=== PATIENT | male | born 1960 | race Caucasian/White ===

== ENCOUNTER 2016-11-18 03:50 | Observation (INO) | payer MEDICARE, OTHER ==
[2016-11-18] MEDS ORDERED: NITROGLYCERIN SL TABS 0.4 MG TAB SUBLINGUAL STA (04:19)
[2016-11-18] MEDS ORDERED: ASPIRIN 81 MG CHEW PO STA (04:19)
--- NOTE | 2016-11-18 04:21 | ED ---
Chest Pain HPI - General Chief Complaint: Chest Pain Stated Complaint: Chest Pain/SOB Time Seen by Provider: 11/18/16 04:03 Source: patient Mode of arrival: ambulatory Limitations: no limitations - History of Present Illness Initial Comments: Patient's 56-year-old man who states she has had previous IN and previous stenting. He noticed development of substernal chest pain as described below, during argument between 1-2 hours ago. On the chest pain persisted he decided be evaluated here. There was also some associated dyspnea. No other anginal symptoms. MD Complaint: chest pain Onset/Timin -: hour(s) Onset: other (During an argument) Pain Location: substernal Pain Radiation: LUE Severity: moderate Quality: other (Soreness) Consistency: constant Improves With: nothing Worsens With: nothing Anginal Symptoms: dyspnea Treatments Prior to Arrival: none - Related Data Home Medications Medication Instructions Recorded Confirmed Albuterol Sulfate [Proair Hfa] 1 - 2 puff INHALATION RT-Q4H PRN 11/18/16 Aspirin 325 mg PO DAILY 11/18/16 11/18/16 Atenolol [Tenormin] 100 mg PO DAILY 11/18/16 11/18/16 Atorvastatin Calcium [Lipitor] 20 mg PO HS 11/18/16 11/18/16 Budesonide/Formoterol Fumarate 2 puff INHALATION RT-BID 11/18/16 11/18/16 [Symbicort 160-4.5 Mcg Inhaler] Cetirizine HCl [Zyrtec] 10 mg PO DAILY 11/18/16 11/18/16 Cholecalciferol (Vitamin D3) 2,000 unit PO DAILY 11/18/16 11/18/16 [Vitamin D3] Dapagliflozin Propanediol [Farxiga] 10 mg PO DAILY 11/18/16 11/18/16 Fenofibrate,Micronized 134 mg PO DAILY 11/18/16 11/18/16 [Fenofibrate] Fluticasone Nasal Coffeen [Flonase 1 - 2 spray EA NOSTRIL DAILY PRN 11/18/1611/18 Nasal Coffeen] Isosorbide Mononitrate ER [Imdur] 30 mg PO DAILY 11/18/16 11/18/16 Omeprazole [PriLOSEC] 20 - 40 mg PO AC-BID PRN 11/18/16 11/18/16 Pioglitazone [Actos] 30 mg PO DAILY 11/18/16 11/18/16 Pregabalin [Lyrica] 75 mg PO TID 11/18/16 11/18/16 Previous Rx's Medication Instructions Recorded Nitroglycerin Sl Tabs [Nitrostat] 0.4 mg SUBLINGUAL Q5M PRN #25 tab 11/18/16 Allergies Allergy/AdvReac Type Severity Reaction Status Date / Time No Known Allergies Allergy Verified 11/18/16 08:47 Review of Systems ROS Statement: Those systems with pertinent positive or pertinent negative responses have been documented in the HPI. ROS Other: All systems not noted in ROS Statement are negative. Constitutional: Denies: fever, chills Respiratory: Reports: as per HPI, dyspnea. Denies: cough, wheezes, hemoptysis Cardiovascular: Reports: chest pain. Denies: palpitations, orthopnea, edema, syncope Gastrointestinal: Denies: abdominal pain, nausea, vomiting Musculoskeletal: Denies: back pain Skin: Denies: rash Neurological: Denies: headache, weakness, numbness EKG Findings - EKG Results: EKG: interpreted by RAINA MURRELL, sinus rhythm (Rate 80 bpm), normal axis, normal QRS, normal ST/T - IN, Pacemaker, Normal: Normal tracing: normal tracing Past Medical History Past Medical History: COPD, Diabetes Mellitus, Hyperlipidemia, Hypertension Additional Past Medical History / Comment(s): Neuropathy History of Any Multi-Drug Resistant Organisms: None Reported Past Surgical History: No Surgical Hx Reported Past Psychological History: No Psychological Hx Reported Smoking Status: Never smoker Past Alcohol Use History: Occasional Past Drug Use History: None Reported - Past Family History Father History Unknown: Yes Additional Family Medical History / Comment(s): Pt was raised in foster care. Mother Family Medical History: Diabetes Mellitus, Myocardial Infarction (IN) Additional Family Medical History / Comment(s): Mother of a IN at the age of 42 yrs. General Exam Limitations: no limitations General appearance: alert, in no apparent distress Head exam: Present: atraumatic, normocephalic Eye exam: Present: normal appearance. Absent: scleral icterus, conjunctival injection ENT exam: Present: normal oropharynx Neck exam: Present: normal inspection Respiratory exam: Present: normal lung sounds bilaterally. Absent: respiratory distress, wheezes, rales, rhonchi, stridor Cardiovascular Exam: Present: regular rate, normal rhythm, normal heart sounds. Absent: systolic murmur, diastolic murmur, rubs, gallop GI/Abdominal exam: Present: soft. Absent: distended, tenderness, guarding, rebound Extremities exam: Present: normal inspection, normal capillary refill. Absent: pedal edema, calf tenderness Back exam: Absent: CVA tenderness (R), CVA tenderness (L) Skin exam: Present: warm, dry, intact, normal color. Absent: rash Course Vital Signs 11/18/16 11/18/16 11/18/16 03:59 05:01 05:17 Temperature 97.2 F L Pulse Rate 85 87 88 Respiratory 18 18 18 Rate Blood Pressure 128/81 142/63 97/53 O2 Sat by Pulse 97 Oximetry 11/18/16 07:10 Temperature Pulse Rate 71 Respiratory 18 Rate Blood Pressure 99/62 O2 Sat by Pulse 97 Oximetry Disposition Clinical Impression: Chest pain Disposition: ADMITTED IP TO THIS HOSP Condition: Fair
[2016-11-18 04:39] LABS: Basophils % (A) 0 %; CH 31.5; CHCM 34.9; Eosinophils # (A) 0.1 k/uL (0-0.7); Eosinophils % (A) 1 %; HCT 44.4 % (39.0-53.0); HDW 2.76; HGB 15.3 gm/dL (13.0-17.5); Luc # (Auto) 0.15; Luc % (Auto) 2; Lymphocytes # (A) 0.9 k/uL (1.0-4.8); Lymphocytes % (A) 13 %; MCH 31.2 pg (25.0-35.0); MCHC 34.4 g/dL (31.0-37.0); MCV 90.7 fL (80.0-100.0); Mean Platelet Volume 6.5; Monocytes # (A) 0.5 k/uL (0-1.0); Monocytes % (A) 7 %; Neutrophils # (A) 5.7 k/uL (1.3-7.7); Neutrophils % (A) 77 %; RDW 14.6 % (11.5-15.5); WBC 7.4 k/uL (3.8-10.6); WBC (Perox) 6.99
[2016-11-18 04:54] LABS: Partial Thromboplastin Time 25.5 sec (22.0-30.0); Prothrombin Time 10.3 sec (9.0-12.0)
[2016-11-18 05:01] LABS: ALT 39 U/L (21-72); AST 23 U/L (17-59); Alkaline Phosphatase 71 U/L (38-126); Anion Gap 12 mmol/L; Blood Urea Nitrogen 18 mg/dL (9-20); Calcium 9.6 mg/dL (8.4-10.2); Carbon Dioxide 24 mmol/L (22-30); Chloride 103 mmol/L (98-107); Glucose 127 mg/dL (74-99); Non-African American GFR(MDRD) 57 (>60 ml/min/1.73 sqM); Sodium 139 mmol/L (137-145); Total Bilirubin 0.6 mg/dL (0.2-1.3); Total Protein 6.9 g/dL (6.3-8.2)
[2016-11-18 05:05] LABS: Creatine Kinase 60 U/L (55-170)
[2016-11-18 05:18] LABS: Creatine Kinase MB 0.8 ng/mL (0.0-2.4); Troponin I <0.012 ng/mL (0.000-0.034)
--- NOTE | 2016-11-18 05:36 | XR ---
EXAM: XR Chest, 1 View CLINICAL HISTORY: Reason: chest pain TECHNIQUE: Frontal view of the chest. COMPARISON: 07/22/16 chest radiography FINDINGS: Please see impression. IMPRESSION: Atelectasis versus infiltrate versus small perfusion at the periphery of the left lung base with resultant blunting of the costophrenic angle. No other changes from the prior study. Specifically no visible pneumothorax.
[2016-11-18] MEDS ORDERED: NITROGLYCERIN SL TABS 0.4 MG TAB SUBLINGUAL PRN (06:59)
[2016-11-18] MEDS ORDERED: DOBUTamine DRIP for NUC MED 500 MG in DEXTROSE/WATER 1 250ML.BAG IV ONE (08:57)
[2016-11-18 09:02] LABS: Creatine Kinase 57 U/L (55-170)
[2016-11-18 09:15] LABS: Creatine Kinase MB 0.6 ng/mL (0.0-2.4); Troponin I <0.012 ng/mL (0.000-0.034)
[2016-11-18] MEDS ORDERED: FENOFIBRATE 160 MG TAB PO SCH (09:15)
[2016-11-18] MEDS ORDERED: ALBUTEROL NEBULIZED 2.5 MG/3 ML INHALATION PRN (10:38)
[2016-11-18] MEDS ORDERED: PANTOPRAZOLE 40 MG TABLET PO PRN (10:38)
[2016-11-18] MEDS ORDERED: FLUTICASONE 50MCG/SPRAY NASAL 16GM EA NOSTRIL PRN (10:38)
[2016-11-18] MEDS ORDERED: ATENOLOL 50 MG TAB PO SCH (10:45)
[2016-11-18] MEDS ORDERED: CHOLECALCIFEROL 1,000 UNIT TAB PO SCH (10:45)
[2016-11-18] MEDS ORDERED: LORATADINE 10 MG TAB PO SCH (10:45)
[2016-11-18] MEDS ORDERED: NON-FORMULARY DRUG (Dapagliflozin Propanediol [Farxiga] 10 MG) PO SCH (10:45)
[2016-11-18] MEDS ORDERED: PIOGLITAZONE 30 MG TAB PO SCH (10:45)
--- NOTE | 2016-11-18 11:38 | CONS ---
DATE OF CONSULTATION: Mr. Queen is a 56-year-old male with known history of hypertension, hyperlipidemia, diabetes mellitus and a history of tobacco use who presented with symptoms of chest discomfort. The discomfort occurred with mental stress. He has been arguing with a person he knows and he has been complaining of chest discomfort every time he does that. He has been followed by Dr. Westbrook from the cardiac standpoint, and apparently had a stress test over a year ago that was unremarkable. He was told that he has an aortic valve issue, but not severe. No intervention was needed. The patient has some dyspnea on exertion. He has no symptoms of dizziness. He has some palpitation. No dizziness. No PND. No orthopnea. He has occasional peripheral edema. He has no prior history of myocardial infarction. His coronary risk factors remarkable for chewing tobacco, hypertension, hyperlipidemia, and diabetes mellitus. His medications include vitamin D, Zyrtec, Budesonide, Symbicort, omeprazole, albuterol, Lyrica, isosorbide mononitrate 30 mg daily, fenofibrate 134 mg daily, Actos 30 mg daily, [id number] mg daily, Lipitor 20 mg daily, Tenormin 100 mg daily and aspirin. REVIEW OF SYSTEMS: RESPIRATORY SYSTEM: He has dyspnea on exertion. History of chronic tobacco use. GI SYSTEM: Remote history of GI bleeding. No recurrence. SYSTEM: Prior history of hematuria. NERVOUS SYSTEM: No history of stroke or seizure. PHYSICAL EXAMINATION: He is a 56-year-old male, alert, oriented, in no apparent distress. Blood pressure 118/70 with the heart rate in the 70s. HEAD: Normocephalic. EYES: Sclerae anicteric. NECK: Good upstroke. No bruit. No jugular venous distention. LUNGS: Clear to auscultation. HEART: Regular rate and rhythm. S1, S2, no S3, no rub with a systolic murmur at the base 1/6. No diastolic murmur. ABDOMEN: Soft, nontender, positive bowel sounds. No organomegaly. Obese. EXTREMITIES: No edema. Intact distal pulses. Lab data revealed Troponin less than 0.012. BUN and creatinine of 18 and 1.3. Potassium 4.0. Hemoglobin of 15.3. EKG revealed a sinus mechanism, normal axis and intervals, no acute changes. Chest x-ray shows no evidence of infiltrate. IMPRESSION: 1. Chest discomfort of unclear etiology, has some atypical feature for ischemic heart disease in a patient with multiple risk factors. 2. Chronic tobacco use. 3. Hypertension. 4. Hyperlipidemia. 5. Diabetes mellitus. RECOMMENDATIONS: I recommended to proceed with a stress dobutamine echocardiogram to evaluate his status and guide his treatment. Depending on the results of testing, further recommendation will be made. Thank you for this consult. We will follow with you.
[2016-11-18 12:10] VITALS: BP 111/70; PULSE 72; RESP 18; TEMP 98.8
[2016-11-18] MEDS ORDERED: ATROPINE SULFATE 0.1 MG/ML 10ML SYRINGE ONE (12:29)
[2016-11-18] MEDS ORDERED: INSULIN LISPRO (humaLOG) 300 UNIT/3 ML VIAL SQ SCH (12:30)
--- NOTE | 2016-11-18 12:43 | ECHOF ---
Referral Reason:cp MEASUREMENTS -------- HEIGHT: 182.9 cm WEIGHT: 122.5 kg BP: 118/74 IVSd: 1.0 cm (0.6 - 1.1) LVIDd: 4.8 cm (3.9 - 5.3) LVPWd: 1.0 cm (0.6 - 1.1) IVSs: 1.7 cm LVIDs: 2.1 cm LVPWs: 1.7 cm Ao Diam: 3.2 cm (2.0 - 3.7) AV Cusp: 2.1 cm (1.5 - 2.6) LA Diam: 4.0 cm (2.7 - 3.8) MV EXCURSION: 18.395 mm (> 18.000) MV EF SLOPE: 133 mm/s (70 - 150) EPSS: 0.2 cm MV E Jaspreet: 0.69 m/s MV DecT: 198 ms MV A Jaspreet: 0.48 m/s MV E/A Ratio: 1.46 RAP: 5.00 mmHg RVSP: 9.71 mmHg FINDINGS -------- Sinus rhythm. This was a technically good study. Left ventricular wall thickness is normal. Overall left ventricular systolic function is normal with, an EF between 55 - 60 %. The right ventricle is normal in size and function. The left atrium is normal in size. The right atrium is normal in size. Aortic valve is trileaflet and is mildly thickened. The mitral valve leaflets are mildly thickened. Mild mitral annular calcification present. There is trace mitral regurgitation. Mild tricuspid regurgitation present. The right ventricular systolic pressure, as measured by Doppler, is 9.71mmHg. Pulmonic valve appears structurally normal. The aortic root size is normal. The pericardium is normal. CONCLUSIONS -------- 1. Sinus rhythm. 2. Mild mitral annular calcification present. 3. There is trace mitral regurgitation. 4. Mild tricuspid regurgitation present. 5. The right ventricular systolic pressure, as measured by Doppler, is 9.71mmHg. 6. Pulmonic valve appears structurally normal. 7. The aortic root size is normal. 8. The pericardium is normal. 9. This was a technically good study. 10. Left ventricular wall thickness is normal. 11. Overall left ventricular systolic function is normal with, an EF between 55 - 60 %. 12. The right ventricle is normal in size and function. 13. The left atrium is normal in size. 14. The right atrium is normal in size. 15. Aortic valve is trileaflet and is mildly thickened. 16. The mitral valve leaflets are mildly thickened. [employer] OFFICER: Sumaya Burrows RDCS
[2016-11-18 13:04] LABS: Glucose,Whole Blood 97 mg/dL (75-99)
[2016-11-18] MEDS: ISOSORBIDE MONONITRATE ER 30 MG TAB.ER.24H PO SCH ×2 (13:12→13:55)
--- NOTE | 2016-11-18 14:35 | ECHOS ---
DATE OF SERVICE: 11/18/2016 AGE: 56Y SEX: M HT: 74" WT: 270 lbs. Protocol Steve: Others: Dobutamine Stress Echo Stage: 4 Dur. of Exercise: 11:00 *Heart Rate Blood Pressure *Rest: 72 Rest: 152/73 * *Max. Achieved: 142 Maximum BP: 135/55 85% PMHR: 139 100% PMHR: 163 *METS: - INDICATIONS: Chest pain. MEDICATIONS: - Patient was given dobutamine infusion according to the standard protocol. Peak heart rate of 142 was achieved. Maximum blood pressure of 135/55 mmHg was noted. Resting EKG shows normal sinus rhythm with normal SD interval and QRS duration and normal ST-T waves. No significant ST segment change from the baseline were noted. The baseline echocardiographic images reveal a normal left ventricular chamber size with normal left ventricular systolic function. At the peak dose of dobutamine infusion, normal increase in the wall thickness and contractility is noted. FINAL IMPRESSION: 1. This dobutamine stress echocardiographic study is negative for stress-induced ischemia. 2. EKG portion of the stress is not suggestive of ischemia.
[2016-11-18] MEDS ORDERED: PREGABALIN 75 MG CAP PO SCH (16:00)
[2016-11-18] MEDS ORDERED: SYMBICORT 160-4.5 MCG INHALER INHALATION SCH (20:00)
[2016-11-18] MEDS ORDERED: ATORVASTATIN 20 MG TAB PO SCH (21:00)
--- NOTE | 2016-11-19 07:43 | DS ---
HISTORY AND PHYSICAL AND DISCHARGE SUMMARY: DATE OF ADMISSION: 11/18/2016 DATE OF DISCHARGE: 11/18/2016 PRESENTING COMPLAINT: Chest pain. HISTORY OF PRESENTING COMPLAINT: This is a 56-year-old patient of Dr. Vasquez, whose chronic stable medical conditions include coronary artery disease, COPD, GERD, hyperlipidemia, hypertension, osteoarthritis, some peripheral artery disease, diabetes type 2, peripheral neuropathy, stomach ulcers, chronic cervical bulging disc pain, kidney stones. Patient presented with upper chest wall 2 hours pain in the evening prior to presentation. Some radiation to the arm and neck, some shortness of breath. No dizziness. Patient admitted with unstable angina. REVIEW OF SYSTEMS: CONSTITUTIONAL: Tired. HEENT: None. RESPIRATORY: As above. CARDIOVASCULAR: As above. GASTROINTESTINAL: None. GENITOURINARY: None. MUSCULOSKELETAL: Pain in the joints. DERMATOLOGICAL: None. HEMATOLOGIC: None. LYMPHATICS: None. PSYCHIATRY: None. NEUROLOGICAL: None. Past history of coronary artery disease, COPD, diabetes mellitus type 2, GERD, hyperlipidemia, hypertension, osteoarthritis, peripheral arterial disease, previous MA's, peripheral neuropathy to arms and feet, peptic ulcer disease, cervical pain, bulging disc, nephrolithiasis. PAST SURGICAL HISTORY: Right shoulder arthroscopy, rotator cuff repair, C4 plating and fusion, cystectomy, lithotripsy. SOCIAL HISTORY: Patient lives with four other roommates, uses a cane. Patient did smoke in the past. Alcohol occasionally. Family history of diabetes and myocardial infarction. HOME MEDICATIONS: 1. Vitamin D3 two thousand units p.o. daily. 2. Zyrtec 10 mg daily. 3. Symbicort 160/4.5 two puffs b.i.d. 4. Prilosec 20 mg b.i.d. 5. Pro-Air 1 to 2 puffs q.4 p.r.n. 6. Lyrica 25 mg b.i.d. 7. Imdur ER 30 mg a day. 8. Flonase 1 to 2 sprays each nostril p.r.n. 9. TriCor 134 mg daily. 10. Actos 30 mg p.o. daily. 11. Farxiga 10 mg p.o. daily. 12. Lipitor 20 mg q.h.s. 13. Tenormin 100 mg p.o. daily. 14. Aspirin 325 p.o. daily. ALLERGIES: None. On examination, temperature 98, pulse 72, respirations 18, blood pressure 111/70, pulse ox 96% on room air. GENERAL APPEARANCE: Well built, BMI of 34.7, lying in bed, not in distress. EYES: Pupils equal. Conjunctivae normal. HEENT: Oral cavity normal. NECK: JVD not raised. Mass not palpable. RESPIRATORY: Effort normal. LUNGS: Decreased breath sounds. CARDIOVASCULAR: First and second sounds normal. No edema. ABDOMEN: Soft, nontender. Liver and spleen not palpable. LYMPHATIC: No lymph node palpable in neck or axillae. PSYCHIATRY: Alert and oriented x3. Mood and affect normal. NEUROLOGICAL: Pupils equal, cranial nerves grossly intact. Power and sensation grossly intact. INVESTIGATIONS: White count 7.4, hemoglobin 15.3, potassium 4.0, BUN 18, creatinine 1.30. Troponin x2 negative. EKG normal sinus rhythm. ASSESSMENT: 1. Chest pain in patient with known coronary. 2. Chronic obstructive pulmonary disease in an ex-smoker. 3. Gastroesophageal reflux disease. 4. Diabetes mellitus on oral hypoglycemic. 5. Hyperlipidemia. 6. Hypertension. 7. Primary osteoarthritis in multiple joints. 8. Peripheral artery disease with peripheral neuropathy. 9. Chronic cervical pain and bulging disc. PLAN: Home medications are resumed. Seen by Cardiology, ordered a dobutamine stress echocardiogram that was done that came back to be negative. Patient being discharged. Discharge medications as above. The patient is to follow up with Dr. Vasquez. This is also discharge planning on the patient. Physical exam as above.
[2016-11-19] MEDS ORDERED: ASPIRIN 325 MG TAB PO SCH ×2 (09:00)
[2016-11-19] MEDS ORDERED: ENOXAPARIN 40 MG/0.4 ML SYRINGE SQ SCH (09:00)
== END 2016-11-18 14:24 | disposition home or self-care (01) ==
LOC: EC 03:50 → 3OBS 07:01
PROVIDERS: ADMIT Hospitalist; ATTEND Hospitalist
DX: R07.9 Chest pain, unspecified (principal); J44.9 Chronic obstructive pulmonary disease, unspecified; K21.9 Gastro-esophageal reflux disease without esophagitis; E11.42 Type 2 diabetes mellitus with diabetic polyneuropathy; E78.5 Hyperlipidemia, unspecified; M19.91 Primary osteoarthritis, unspecified site; I10 Essential (primary) hypertension; I73.9 Peripheral vascular disease, unspecified; M54.2 Cervicalgia; K27.9 Peptic ulcer, site unspecified, unspecified as acute or chronic, without hemorrhage or perforation; I25.110 Atherosclerotic heart disease of native coronary artery with unstable angina pectoris; I25.2 Old myocardial infarction; Z79.82 Long term (current) use of aspirin; Z72.0 Tobacco use; Z79.899 Other long term (current) drug therapy; Z79.51 Long term (current) use of inhaled steroids; Z79.84 Long term (current) use of oral hypoglycemic drugs; Z82.49 Family history of ischemic heart disease and other diseases of the circulatory system; Z83.3 Family history of diabetes mellitus
CPT/HCPCS: 99285 ×2; 36415; 93005; 93017; 93306; 85379; 80053; 82550; 82553; 83735; 84484; 85025; 85610; 85730; 71010; G0378; C8928; J1250; J0461; Q9957; 93350

== ENCOUNTER → 2016-12-09 | Outpatient (CLI) | payer MEDICARE, OTHER ==
[2016-12-09 09:04] LABS: Basophils % (A) 0 %; CH 30.1; CHCM 32.9; Eosinophils # (A) 0.2 k/uL (0-0.7); Eosinophils % (A) 3 %; HCT 46.8 % (39.0-53.0); HDW 2.83; HGB 16.1 gm/dL (13.0-17.5); Luc # (Auto) 0.19; Luc % (Auto) 3; Lymphocytes # (A) 1.6 k/uL (1.0-4.8); Lymphocytes % (A) 23 %; MCH 31.6 pg (25.0-35.0); MCHC 34.3 g/dL (31.0-37.0); Mean Platelet Volume 7.1; Monocytes # (A) 0.4 k/uL (0-1.0); Monocytes % (A) 6 %; Neutrophils # (A) 4.4 k/uL (1.3-7.7); Neutrophils % (A) 65 %; RBC 5.08 m/uL (4.30-5.90); RDW 14.5 % (11.5-15.5); WBC 6.8 k/uL (3.8-10.6); WBC (Perox) 6.83
[2016-12-09 09:19] LABS: ALT 24 U/L (21-72); AST 23 U/L (17-59); Alkaline Phosphatase 65 U/L (38-126); Anion Gap 10 mmol/L; Blood Urea Nitrogen 15 mg/dL (9-20); Calcium 9.5 mg/dL (8.4-10.2); Carbon Dioxide 28 mmol/L (22-30); Chloride 107 mmol/L (98-107); Cholesterol 225 mg/dL (<200); Glucose 117 mg/dL (74-99); HDL Cholesterol 44 mg/dL (40-60); Non-African American GFR(MDRD) >60 (>60 ml/min/1.73 sqM); Potassium 4.3 mmol/L (3.5-5.1); Sodium 145 mmol/L (137-145); Total Bilirubin 0.7 mg/dL (0.2-1.3); Total Protein 7.2 g/dL (6.3-8.2); Triglycerides 193 mg/dL (<150)
== END | disposition home or self-care (01) ==
LOC: LABWHC1 08:29
PROVIDERS: ATTEND Family Medicine
DX: E78.5 Hyperlipidemia, unspecified (principal)
CPT/HCPCS: 36415; 80053; 80061; 85025

== ENCOUNTER 2017-03-02 00:58 | Observation (INO) | payer MEDICARE, OTHER ==
[2017-03-02] MEDS ORDERED: SODIUM CHLORIDE 0.9% 1,000 ML IV STA (01:22)
[2017-03-02] MEDS ORDERED: MORPHINE SULFATE 4 MG/ML SYRINGE IV STA (01:22)
[2017-03-02] MEDS ORDERED: ONDANSETRON 4 MG/2 ML VIAL IVP STA (01:22)
[2017-03-02] MEDS ORDERED: NITROGLYCERIN OINT 1 INCH/GM PACKET TOPICAL STA (01:22)
[2017-03-02 01:40] LABS: Basophils % (A) 0 %; CH 30.6; CHCM 32.7; Eosinophils # (A) 0.1 k/uL (0-0.7); Eosinophils % (A) 2 %; HCT 43.3 % (39.0-53.0); HDW 2.73; HGB 14.1 gm/dL (13.0-17.5); Luc # (Auto) 0.18; Luc % (Auto) 2; Lymphocytes # (A) 1.4 k/uL (1.0-4.8); Lymphocytes % (A) 16 %; MCH 30.6 pg (25.0-35.0); MCHC 32.5 g/dL (31.0-37.0); Mean Platelet Volume 6.7; Monocytes # (A) 0.6 k/uL (0-1.0); Monocytes % (A) 7 %; Neutrophils # (A) 6.2 k/uL (1.3-7.7); Neutrophils % (A) 73 %; RBC 4.61 m/uL (4.30-5.90); RDW 14.8 % (11.5-15.5); WBC 8.5 k/uL (3.8-10.6); WBC (Perox) 9.11
[2017-03-02 01:50] LABS: ALT 41 U/L (21-72); AST 22 U/L (17-59); Alkaline Phosphatase 75 U/L (38-126); Anion Gap 10 mmol/L; Blood Urea Nitrogen 16 mg/dL (9-20); Calcium 9.2 mg/dL (8.4-10.2); Carbon Dioxide 22 mmol/L (22-30); Chloride 105 mmol/L (98-107); Glucose 162 mg/dL (74-99); Magnesium 2.1 mg/dL (1.6-2.3); Non-African American GFR(MDRD) >60 (>60 ml/min/1.73 sqM); Potassium 3.5 mmol/L (3.5-5.1); Sodium 137 mmol/L (137-145); Total Bilirubin 0.3 mg/dL (0.2-1.3); Total Protein 6.2 g/dL (6.3-8.2)
[2017-03-02 02:00] LABS: Partial Thromboplastin Time 24.9 sec (22.0-30.0); Prothrombin Time 10.3 sec (9.0-12.0)
--- NOTE | 2017-03-02 02:14 | XR ---
EXAM: XR Chest, 2 Views CLINICAL HISTORY: Reason: Chest Pain TECHNIQUE: Frontal and lateral views of the chest. COMPARISON: 11/18/16, chest radiography. FINDINGS: Lungs: Low lung volumes (as before) but no mass or consolidation. Pleural space: Unremarkable. No pneumothorax. Heart: Unremarkable. No cardiomegaly. Mediastinum: Unremarkable. Bones/joints: Unremarkable. IMPRESSION: No acute disease.
[2017-03-02 02:17] LABS: Creatine Kinase 129 U/L (55-170)
[2017-03-02 02:29] LABS: Creatine Kinase MB 1.1 ng/mL (0.0-2.4); Troponin I <0.012 ng/mL (0.000-0.034)
--- NOTE | 2017-03-02 02:55 | CT ---
EXAM: CT Head Without Intravenous Contrast CLINICAL HISTORY: Reason: Pain TECHNIQUE: Axial computed tomography images of the head/brain without intravenous contrast. CTDI is 57.40 mGy and DLP is 1064.30 mGy-cm. This CT exam was performed using one or more of the following dose reduction techniques: automated exposure control, adjustment of the mA and/or kV according to patient size, and/or use of iterative reconstruction technique. COMPARISON: No relevant prior studies available. FINDINGS: Brain: Unremarkable. No hemorrhage. No significant white matter disease. No edema. Ventricles: Unremarkable. No ventriculomegaly. Bones/joints: Unremarkable. No acute fracture. Soft tissues: Unremarkable. Sinuses: Unremarkable as visualized. No acute sinusitis. Mastoid air cells: Unremarkable as visualized. No mastoid effusion. IMPRESSION: Normal head/brain CT.
--- NOTE | 2017-03-02 04:19 | ED ---
Chest Pain HPI - General Chief Complaint: Chest Pain Stated Complaint: VASQUEZ,Chest PAin-Cardiac Pt Time Seen by Provider: 03/02/17 01:12 Source: patient Mode of arrival: wheelchair Limitations: no limitations - History of Present Illness Initial Comments: 56 years old male complaining about chest pain, it started few hours ago, he took his aspirin and nitro did help the pain to some extent now he is short- winded also complaining about the headache he saying his chest pain is 8/10 and his shortness of breath is also 8/10 now complaining about excruciating migraines. He has a headache no neck stiffness has chest pain has shortness of breath no abdominal pain no frequency urgency dysuria no sinus symptoms of TIA or CVA - Related Data Home Medications Medication Instructions Recorded Confirmed Albuterol Sulfate [Proair Hfa] 1 - 2 puff INHALATION RT-Q4H PRN 11/18/16 Aspirin 325 mg PO DAILY 11/18/16 11/18/16 Atenolol [Tenormin] 100 mg PO DAILY 11/18/16 11/18/16 Atorvastatin Calcium [Lipitor] 20 mg PO HS 11/18/16 11/18/16 Budesonide/Formoterol Fumarate 2 puff INHALATION RT-BID 11/18/16 11/18/16 [Symbicort 160-4.5 Mcg Inhaler] Cetirizine HCl [Zyrtec] 10 mg PO DAILY 11/18/16 11/18/16 Cholecalciferol (Vitamin D3) 2,000 unit PO DAILY 11/18/16 11/18/16 [Vitamin D3] Dapagliflozin Propanediol [Farxiga] 10 mg PO DAILY 11/18/16 11/18/16 Fenofibrate,Micronized 134 mg PO DAILY 11/18/16 11/18/16 [Fenofibrate] Fluticasone Nasal Shiro [Flonase 1 - 2 spray EA NOSTRIL DAILY PRN 11/18/1611/18 Nasal Shiro] Isosorbide Mononitrate ER [Imdur] 30 mg PO DAILY 11/18/16 11/18/16 Omeprazole [PriLOSEC] 20 - 40 mg PO AC-BID PRN 11/18/16 11/18/16 Pioglitazone [Actos] 30 mg PO DAILY 11/18/16 11/18/16 Pregabalin [Lyrica] 75 mg PO TID 11/18/16 11/18/16 Previous Rx's Medication Instructions Recorded Nitroglycerin Sl Tabs [Nitrostat] 0.4 mg SUBLINGUAL Q5M PRN #25 tab 11/18/16 Allergies Allergy/AdvReac Type Severity Reaction Status Date / Time No Known Allergies Allergy Verified 03/02/17 01:00 Review of Systems ROS Statement: Those systems with pertinent positive or pertinent negative responses have been documented in the HPI. ROS Other: All systems not noted in ROS Statement are negative. EKG Findings - EKG Comments: EKG Findings:: Physical is normal sinus rhythm ventricular rate is 84 [place] interval is 156 QRS duration is 90 QT/QTc is 370/446 review of this EKG does not reveal any ST elevation or ST depression Past Medical History Past Medical History: Coronary Artery Disease (CAD), COPD, Diabetes Mellitus, Hyperlipidemia, Hypertension, Myocardial Infarction (IN) Additional Past Medical History / Comment(s): Neuropathy Last Myocardial Infarction Date:: 2006 History of Any Multi-Drug Resistant Organisms: None Reported Date of last positivie culture/infection: 1987 MDRO Source:: "private area" Past Surgical History: No Surgical Hx Reported Additional Past Surgical History / Comment(s): Right shoulder arthroscopy- rotator cuff repair, C4 pinning/fusion, R lower abdominal cystectomy, lithotripsy/basketing, colonoscopy. Past Anesthesia/Blood Transfusion Reactions: No Reported Reaction Additional Past Anesthesia/Blood Transfusion Reaction / Comment(s): Pt states he has received blood in past without reaction. Past Psychological History: No Psychological Hx Reported Smoking Status: Never smoker Past Alcohol Use History: Occasional Past Drug Use History: None Reported - Past Family History Father History Unknown: Yes Additional Family Medical History / Comment(s): Pt was raised in foster care. Mother Family Medical History: Diabetes Mellitus, Myocardial Infarction (IN) Additional Family Medical History / Comment(s): Mother of a IN at the age of 42 yrs. General Exam - General Exam Comments Initial Comments: General: The patient is awake and alert, in no distress, and does not appear acutely ill. Skin: Skin is warm and dry and no rashes or lesions are noted. Eye: Pupils are equal, round and reactive to light, extra-ocular movements are intact; there is normal conjunctiva bilaterally. Ears, nose, mouth and throat: There are moist mucous membranes and no oral lesions. Neck: The neck is supple, there is no tenderness or JVD. Cardiovascular: There is a regular rate and rhythm. No murmur, rub or gallop is appreciated. Respiratory: To auscultation bilateral, no wheezing no rhonchi no distress respiratory palomino noticed Gastrointestinal: Soft, non-distended, non-tender abdomen without masses or organomegaly noted. There is no rebound or guarding present. Bowel sounds are unremarkable. Back: There is no tenderness to palpation in the midline. There is no obvious deformity. Musculoskeletal: Normal ROM, no tenderness, There is no pedal edema. There is no calf tenderness or swelling. No cords were appreciated. Neurological: CN II-XII intact, Cranial nerves III through XII are intact. There are no obvious motor or sensory deficits. Coordination appears grossly intact. Speech is normal. Psychiatric: Cooperative, appropriate mood & affect, normal judgment. Limitations: no limitations Course Vital Signs 03/02/17 03/02/17 03/02/17 01:01 01:59 02:50 Temperature 97.5 F L Pulse Rate 91 86 79 Respiratory 18 20 16 Rate Blood Pressure 110/61 120/60 98/56 O2 Sat by Pulse 95 98 93 L Oximetry 03/02/17 03:59 Temperature Pulse Rate 75 Respiratory 20 Rate Blood Pressure 90/55 O2 Sat by Pulse 95 Oximetry Was reassessed at 4 AM, he still has chest pain, headache is better, his labs and imaging were discussed with him, his CBC, d-dimer, compressive metabolic panel, troponin, EKG, chest x-ray and head CT are normal considering his chest pain or quiet and admit him to the hospital for observation and now serial cardiac markers Critical Care Time Total Critical Care Time: 30 Critical Care Time: She presented with the chest pain and dyspnea, he was given aspirin on nitro and morphine, he continued to have a chest pain though his troponin and EKG are unremarkable considering his risk factors he is a diabetic and is hypertensive quiet and heparinize him and he be admitted to Dr. Rockwell's service and cardiology consult Disposition Clinical Impression: Chest pain, Dyspnea, Migraine Disposition: ADMITTED IP TO THIS HOSP Condition: Good Referrals: Nick Vasquez MD [Primary Care Provider] - 1-2 days
[2017-03-02] MEDS ORDERED: HEPARIN SODIUM,PORCINE 5,000 UNIT/ML 1 ML VIAL IV ONE (04:22)
[2017-03-02] MEDS ORDERED: MORPHINE SULFATE 2 MG/ML SYRINGE IVP PRN (04:22)
[2017-03-02] MEDS ORDERED: NITROGLYCERIN SL TABS 0.4 MG TAB SUBLINGUAL PRN ×2 (04:22→04:29)
[2017-03-02] MEDS ORDERED: ALBUTEROL NEBULIZED 2.5 MG/3 ML INHALATION PRN (04:29)
[2017-03-02] MEDS ORDERED: FLUTICASONE 50MCG/SPRAY NASAL 16GM EA NOSTRIL PRN (04:29)
[2017-03-02] MEDS ORDERED: PANTOPRAZOLE 40 MG TABLET PO PRN (04:29)
[2017-03-02] MEDS ORDERED: HEPARIN SODIUM,PORCINE/D5W PMX 25,000 UNIT in DEXTROSE/WATER 1 500ML.BAG IV SCH (04:30)
[2017-03-02 05:25] VITALS: BMI 34.7
[2017-03-02 07:23] LABS: Glucose,Whole Blood 126 mg/dL (75-99)
[2017-03-02] MEDS ORDERED: SYMBICORT 160-4.5 MCG INHALER INHALATION SCH (08:00)
[2017-03-02 08:29] VITALS: RESP 18
[2017-03-02] MEDS ORDERED: LORATADINE 10 MG TAB PO SCH (09:00)
[2017-03-02] MEDS ORDERED: ISOSORBIDE MONONITRATE ER 30 MG TAB.ER.24H PO SCH (09:00)
[2017-03-02] MEDS ORDERED: PREGABALIN 75 MG CAP PO SCH (09:00)
[2017-03-02] MEDS ORDERED: PIOGLITAZONE 30 MG TAB PO SCH (09:00)
[2017-03-02] MEDS ORDERED: NON-FORMULARY DRUG (Dapagliflozin Propanediol [Farxiga] 10 MG) PO SCH (09:00)
[2017-03-02] MEDS ORDERED: CHOLECALCIFEROL 1,000 UNIT TAB PO SCH (09:00)
[2017-03-02] MEDS ORDERED: ATENOLOL 50 MG TAB PO SCH (09:00)
[2017-03-02 09:18] LABS: Creatine Kinase 89 U/L (55-170)
[2017-03-02 09:29] LABS: Creatine Kinase MB 0.9 ng/mL (0.0-2.4); Troponin I <0.012 ng/mL (0.000-0.034)
[2017-03-02] MEDS: FENOFIBRATE 160 MG TAB PO SCH ×2 (11:26→11:38)
[2017-03-02 12:12] LABS: Glucose,Whole Blood 102 mg/dL (75-99)
[2017-03-02 12:29] VITALS: BP 122/71; PULSE 67; TEMP 97.7
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
[2017-03-02 14:05] LABS: Creatine Kinase 76 U/L (55-170)
[2017-03-02 14:17] LABS: Creatine Kinase MB 0.7 ng/mL (0.0-2.4); Troponin I <0.012 ng/mL (0.000-0.034)
--- NOTE | 2017-03-02 16:00 | HP ---
HISTORY AND PHYSICAL HISTORY AND PHYSICAL AND DISCHARGE SUMMARY: DATE OF ADMISSION: 03/02/2017. PRESENTING COMPLAINT: Chest pain. HISTORY OF PRESENTING COMPLAINT: This is a 56-year-old patient of Dr. Vasquez and also follows with Dr. Holley, his sk[address] man. Chronic stable medical conditions include COPD, GERD, hyperlipidemia, hypertension, osteoarthritis, peripheral artery disease, diabetes mellitus type 2, peripheral neuropathy, stomach ulcers, chronic cervical bulging disc, kidney stones. Patient was here and some associated did have a stress test that was negative. He states he did have a cardiac catheterization by Dr. Holley on January 14 and some nonspecific disease. He could not was present. Patient presents yesterday with pressure across the chest., some shortness of breath, no cough, some perspiration and he said he nearly passed out while walking; hence, he presented here. There was no fever, appetite is fair. REVIEW OF SYSTEMS: CONSTITUTIONAL: Tired. HEENT: None. RESPIRATORY: As above. CARDIOVASCULAR: As above. GASTROINTESTINAL: None. GENITOURINARY: None. MUSCULOSKELETAL: Pain in several joints. DERMATOLOGICAL: None. HEMATOLOGIC: None. LYMPHATIC: None. PSYCHIATRY: None NEUROLOGICAL: None. PAST HISTORY: Questionable coronary artery disease, COPD, diabetes mellitus type 2, GERD, hyperlipidemia, hypertension, osteoarthritis, peripheral artery disease, previous RI, peripheral neuropathy to arms and feet, peptic ulcer disease, cervical pain, bulging disc, nephrolithiasis. PAST SURGICAL HISTORY: Right shoulder arthroscopy-rotator cuff repair, C4 pinning infusion, cystectomy, lithotripsy. SOCIAL HISTORY: Patient lives with his other roommates, uses a cane, did smoke in the past. Alcohol occasionally. FAMILY HISTORY: Family history of diabetes, myocardial infarction. HOME MEDICATIONS: 1. Actos 30 mg p.o. daily. 2. [place]-3 one thousand mg p.o. daily. 3. Nitrostat 0.4 sublingual q.5 p.r.n. 4. Hydrocortisone 1% topical daily. 5. Hydrochlorothiazide 25 mg p.o. daily. 6. Farxiga 10 mg p.o. trdui. 7. Symbicort 160/4.5 two puffs b.i.d. 8. Lipitor 40 mg q.h.s. 9. Tenormin 100 mg p.o. daily. 10.Aspirin 325 p.o. daily. 11.ProAir 1 to 2 puffs q.4 p.r.n. ALLERGIES: None. PHYSICAL EXAMINATION: Vital signs on presentation,temperature 97.5, pulse 91, respiratory blood pressure 110/61, pulse ox 95% on room air. GENERAL APPEARANCE: Well built, BMI 34.7, sitting up, not in distress. EYES: Pupils equal, conjunctivae normal. HEENT: Oral cavity normal. NECK: JVD not raised. Mass not palpable. RESPIRATORY EFFORT: Normal with slightly decreased breath sounds.. CARDIOVASCULAR: First and second sound are normal. No edema. ABDOMEN: Soft, nontender. Liver and spleen not palpable. LYMPHATIC: No lymph node. PSYCHIATRY: Alert and oriented x3. Mood and affect normal. NEUROLOGICAL: Pupils equal. Cranial nerves grossly intact. Power and sensation grossly intact. INVESTIGATIONS: White count 8.5, hemoglobin 14.1, potassium 3.5. BUN creatinine normal. Troponin x3 is negative. EKG, normal sinus rhythm. ASSESSMENT: 1. Anterior chest wall pain reproducible with a questionable cardiac history. 2. Chronic obstructive pulmonary disease in an ex-smoker. 3. Gastroesophageal reflux disease. 4. Diabetes mellitus type 2, on oral hypoglycemic. 5. Hyperlipidemia. 6. Essential hypertension. 7. Primary osteoarthritis in multiple joints. 8. Peripheral artery disease with peripheral neuropathy. 9. Chronic cervical spine pain and herniated disc. PLAN: Home medications are resumed. Cardiology was consulted. Patient was seen by Dr. Heaton. He feels the pain is musculoskeletal. Patient had a full extensive workup in the past. Hence patient will be discharged on the current medications. Care was discussed with the patient. Care was discussed with the patient. DISCHARGE MEDICATIONS: 1. [place]-3 one thousand mg p.o. daily. 2. Hydrocortisone 1% topical daily. 3. Hydrochlorothiazide 25 mg daily/. 4. Lipitor 40 mg q.h.s. 5. ProAir 1 to 2 puffs q.4 p.r.n. 6. Actos 30 mg a day. 7. Nitrostat 0.4 sublingual q.5 p.r.n. 8. Farxiga 10 mg p.o. daily. 9. Symbicort 2 puffs b.i.d. 10.Tenormin 100 mg p.o. daily. 11.Aspirin 325 mg p.o. daily. Follow up with Dr. Vasquez in 2 days. Follow up with Dr. Holley 2 days. MMODL / IJN: [id number] /
[2017-03-02] MEDS ORDERED: ATORVASTATIN 20 MG TAB PO SCH (21:00)
[2017-03-03] MEDS ORDERED: ASPIRIN 325 MG TAB PO SCH (09:00)
== END 2017-03-02 16:11 | disposition home or self-care (01) ==
LOC: EC 00:58 → 3OBS 04:29
PROVIDERS: ADMIT Hospitalist; ATTEND Hospitalist
DX: R07.89 Other chest pain (principal); R07.1 Chest pain on breathing; R07.81 Pleurodynia; G43.909 Migraine, unspecified, not intractable, without status migrainosus; R06.02 Shortness of breath; J44.9 Chronic obstructive pulmonary disease, unspecified; K21.9 Gastro-esophageal reflux disease without esophagitis; I10 Essential (primary) hypertension; E78.5 Hyperlipidemia, unspecified; E11.42 Type 2 diabetes mellitus with diabetic polyneuropathy; M19.91 Primary osteoarthritis, unspecified site; M15.9 Polyosteoarthritis, unspecified; I73.9 Peripheral vascular disease, unspecified; I25.10 Atherosclerotic heart disease of native coronary artery without angina pectoris; M50.20 Other cervical disc displacement, unspecified cervical region; I25.2 Old myocardial infarction; K25.9 Gastric ulcer, unspecified as acute or chronic, without hemorrhage or perforation; Z87.442 Personal history of urinary calculi; Z79.82 Long term (current) use of aspirin; Z79.899 Other long term (current) drug therapy; Z79.51 Long term (current) use of inhaled steroids; Z79.84 Long term (current) use of oral hypoglycemic drugs; Z82.49 Family history of ischemic heart disease and other diseases of the circulatory system; Z87.891 Personal history of nicotine dependence
CPT/HCPCS: 36415; 70450; 71020; 80053; 82550; 82553; 83735; 83880; 84484; 85025; 85379; 85610; 85730; 93005; 94640; 96361; 96374; 96375; 96376; 99291

== ENCOUNTER 2017-03-29 15:09 | Emergency (ER) | payer MEDICARE, OTHER ==
[2017-03-29 15:42] VITALS: RESP 18
[2017-03-29] MEDS ORDERED: SODIUM CHLORIDE 0.9% 500 ML IV STA (17:26)
--- NOTE | 2017-03-29 17:48 | XR ---
EXAMINATION TYPE: XR chest 2V DATE OF EXAM: 03/29/2017 COMPARISON: 03/02/2017 HISTORY: Cough TECHNIQUE: Frontal and lateral views of the chest are obtained. FINDINGS: There is no heart failure nor confluent pneumonic infiltrate. There are no hilar masses. C ostophrenic angles are clear. IMPRESSION: No active cardiopulmonary disease. No change.
--- NOTE | 2017-03-29 17:49 | ED ---
General Adult HPI - General Chief complaint: Upper Respiratory Infection Stated complaint: Vomiting Time Seen by Provider: 03/29/17 17:15 Source: patient, RN notes reviewed Mode of arrival: ambulatory Limitations: no limitations - History of Present Illness Initial comments: This is a 56-year-old male with history of COPD and CHF who presents to the emergency department with chief complaint of cough. Patient states that he developed a non-productive cough 2 days ago. He states he has been grunting uncontrollably. He states that it feels like there is something in his throat and is experiencing sinus drainage. He states he has been unable to eat for the previous 2 days due to nausea. He also reports sore throat. Patient denies fever, chills, sinus pain, ear pain, shortness of breath, abdominal pain, vomiting, diarrhea or constipation, numbness or tingling, headache or vision changes. - Related Data Home Medications Medication Instructions Recorded Confirmed Albuterol Sulfate [Proair Hfa] 1 - 2 puff INHALATION RT-Q4H PRN 11/18/16 Aspirin 325 mg PO DAILY 11/18/16 03/29/17 Atenolol [Tenormin] 100 mg PO DAILY 11/18/16 03/29/17 Budesonide/Formoterol Fumarate 2 puff INHALATION RT-BID PRN 11/18/16 03/29/17 [Symbicort 160-4.5 Mcg Inhaler] Dapagliflozin Propanediol [Farxiga] 10 mg PO DAILY 11/18/16 03/29/17 Pioglitazone [Actos] 30 mg PO DAILY 11/18/16 03/29/17 Hydrochlorothiazide [Hydrodiuril] 25 mg PO DAILY 03/02/17 03/29/17 Seadrift-3 Fatty Acids [Seadrift-3] 1,000 mg PO DAILY 03/02/17 03/29/17 Atorvastatin [Lipitor] 20 mg PO HS 03/29/17 03/29/17 Isosorbide Mononitrate ER [Imdur] 30 mg PO DAILY 03/29/17 03/29/17 Omeprazole 40 mg PO DAILY 03/29/17 03/29/17 Previous Rx's Medication Instructions Recorded Nitroglycerin Sl Tabs [Nitrostat] 0.4 mg SUBLINGUAL Q5M PRN #25 tab 11/18/16 predniSONE 50 mg PO DAILY #5 tab 03/29/17 Allergies Allergy/AdvReac Type Severity Reaction Status Date / Time No Known Allergies Allergy Verified 03/29/17 18:44 Review of Systems ROS Statement: Those systems with pertinent positive or pertinent negative responses have been documented in the HPI. ROS Other: All systems not noted in ROS Statement are negative. Past Medical History Past Medical History: Coronary Artery Disease (CAD), COPD, Diabetes Mellitus, Hyperlipidemia, Hypertension, Myocardial Infarction (CO) Additional Past Medical History / Comment(s): Neuropathy Last Myocardial Infarction Date:: 2006 History of Any Multi-Drug Resistant Organisms: None Reported Date of last positivie culture/infection: 1987 MDRO Source:: "private area" Past Surgical History: Heart Catheterization Additional Past Surgical History / Comment(s): Right shoulder arthroscopy- rotator cuff repair, C4 pinning/fusion, R lower abdominal cystectomy, lithotripsy/basketing, colonoscopy. caridac cath at [facility] no stents per pt Past Anesthesia/Blood Transfusion Reactions: No Reported Reaction Additional Past Anesthesia/Blood Transfusion Reaction / Comment(s): Pt states he has received blood in past without reaction. Past Psychological History: No Psychological Hx Reported Smoking Status: Former smoker Past Alcohol Use History: None Reported Past Drug Use History: None Reported - Past Family History Father History Unknown: Yes Additional Family Medical History / Comment(s): Pt was raised in foster care. Mother Family Medical History: Diabetes Mellitus, Myocardial Infarction (CO) Additional Family Medical History / Comment(s): Mother of a CO at the age of 42 yrs. General Exam - General Exam Comments Initial Comments: General: Awake and alert, well-developed; in no apparent distress. HEENT: Head atraumatic, normocephalic. Pupils are equal, round and reactive to light. Extraocular movements intact. Oropharynx moist without erythema or exudate. Neck: Supple. Normal ROM. No adenopathy. Cardiovascular: Regular rate and rhythm. No murmurs, rubs or gallops. Chest symmetrical. Respiratory: Lungs clear to auscultation bilaterally. No wheezes, rales or rhonchi. Normal respiratory effort with no use of accessory muscles. Abdomen: Soft, non-tender, non-distended. No rigidity, rebound or guarding. Normal bowel sounds in all 4 quadrants. Musculoskeletal: Normal ROM, no tenderness, no pedal edema. Pulses 2+ equal and palpable bilaterally. Skin: [place], warm and dry without rashes or lesions. Neurological: Alert and oriented x3. CN II-XII grossly intact. No focal neuro deficits. Psychiatric: Normal mood and affect. No overt signs of depression or anxiety noted. Limitations: no limitations Course Vital Signs 03/29/17 15:40 Temperature 99 F Pulse Rate 81 Respiratory 18 Rate Blood Pressure 118/73 O2 Sat by Pulse 94 L Oximetry - Reevaluation(s) Reevaluation #1: Unremarkable results of chest x-ray discussed with patient. He is in no acute distress at this time but does complain of nausea. Will be given Zofran. Awaiting lab results. 03/29/17 18:16 Medical Decision Making - Medical Decision Making This is a 56-year-old male who presents to the emergency department with chief complaint of cough and nausea. This case was discussed with attending physician , Dr. Alves. CBC was normal and CMP revealed slightly elevated BUN and Cr. Patient received 500 bolus of normal saline while in the emergency department as well as Zofran for nausea. Chest x-ray revealed no acute abnormalities. He is feeling well this time and is in no apparent distress. Patient will be discharged home with prescription for prednisone 50 mg for 5 days. He is to follow-up with his primary care provider within 1-2 days. Patient is in agreement to the plan and voiced understanding. All questions were answered. - Lab Data Result diagrams: 03/29/17 17:45 03/29/17 17:45 Lab Results 03/29/17 03/29/17 Range/Units 17:45 17:45 WBC 7.9 (3.8-10.6) k/uL RBC 5.29 (4.30-5.90) m/uL Hgb 16.0 (13.0-17.5) gm/dL Hct 49.0 (39.0-53.0) % MCV 92.7 (80.0-100.0) fL MCH 30.3 (25.0-35.0) pg MCHC 32.7 (31.0-37.0) g/dL RDW 14.3 (11.5-15.5) % Plt Count 258 (150-450) k/uL Neutrophils % 74 % Lymphocytes % 15 % Monocytes % 8 % Eosinophils % 2 % Basophils % 0 % Neutrophils # 5.9 (1.3-7.7) k/uL Lymphocytes # 1.2 (1.0-4.8) k/uL Monocytes # 0.7 (0-1.0) k/uL Eosinophils # 0.1 (0-0.7) k/uL Basophils # 0.0 (0-0.2) k/uL Sodium 137 (137-145) mmol/L Potassium 4.3 (3.5-5.1) mmol/L Chloride 101 (98-107) mmol/L Carbon Dioxide 23 (22-30) mmol/L Anion Gap 13 mmol/L BUN 21 H (9-20) mg/dL Creatinine 1.39 H (0.66-1.25) mg/dL Est GFR (MDRD) Af Amer >60 (>60 ml/min/1.73 sqM) Est GFR (MDRD) Non-Af 53 (>60 ml/min/1.73 sqM) Glucose 105 H (74-99) mg/dL Calcium 10.0 (8.4-10.2) mg/dL - Radiology Data Radiology results: report reviewed Chest x-ray findings: There is no heart failure nor confluent pneumonic infiltrate. There are no hilar masses. Costovertebral angles are clear. Impression: No active cardiopulmonary disease. No change. Disposition Clinical Impression: Bronchitis Disposition: HOME SELF-CARE Condition: Good Instructions: Acute Bronchitis (ED), Acute Nausea and Vomiting (ED) Additional Instructions: Please take medications as prescribed. Please increase oral fluid intake to prevent dehydration. Please follow up with primary care provider within 1-2 days. Return to emergency department if symptoms should worsen or any concerns arise. Prescriptions: predniSONE 50 mg PO DAILY #5 tab Referrals: Nick Vasquez MD [Primary Care Provider] - 1-2 days Time of Disposition: 18:50
[2017-03-29] MEDS ORDERED: ONDANSETRON 4 MG/2 ML VIAL IVP STA (18:15)
[2017-03-29 18:23] LABS: Basophils % (A) 0 %; CH 30.6; CHCM 33.1; Eosinophils # (A) 0.1 k/uL (0-0.7); Eosinophils % (A) 2 %; HDW 2.77; Luc % (Auto) 1; Lymphocytes # (A) 1.2 k/uL (1.0-4.8); Lymphocytes % (A) 15 %; MCH 30.3 pg (25.0-35.0); MCHC 32.7 g/dL (31.0-37.0); MCV 92.7 fL (80.0-100.0); Mean Platelet Volume 6.9; Monocytes # (A) 0.7 k/uL (0-1.0); Monocytes % (A) 8 %; Neutrophils # (A) 5.9 k/uL (1.3-7.7); Neutrophils % (A) 74 %; RBC 5.29 m/uL (4.30-5.90); RDW 14.3 % (11.5-15.5); WBC 7.9 k/uL (3.8-10.6); WBC (Perox) 7.77
[2017-03-29 18:34] LABS: Anion Gap 13 mmol/L; Blood Urea Nitrogen 21 mg/dL (9-20); Carbon Dioxide 23 mmol/L (22-30); Chloride 101 mmol/L (98-107); Glucose 105 mg/dL (74-99); Non-African American GFR(MDRD) 53 (>60 ml/min/1.73 sqM); Potassium 4.3 mmol/L (3.5-5.1); Sodium 137 mmol/L (137-145)
[2017-03-29 19:16] VITALS: BP 116/66; PULSE 58; TEMP 98.1
== END 2017-03-29 19:16 | disposition home or self-care (01) ==
LOC: EC 15:09
DX: J40 Bronchitis, not specified as acute or chronic (principal); R79.89 Other specified abnormal findings of blood chemistry; R11.0 Nausea; J34.89 Other specified disorders of nose and nasal sinuses; J02.9 Acute pharyngitis, unspecified; E78.5 Hyperlipidemia, unspecified; I11.0 Hypertensive heart disease with heart failure; I50.9 Heart failure, unspecified; I25.10 Atherosclerotic heart disease of native coronary artery without angina pectoris; E11.9 Type 2 diabetes mellitus without complications; I25.2 Old myocardial infarction; Z87.891 Personal history of nicotine dependence; Z79.82 Long term (current) use of aspirin; Z79.84 Long term (current) use of oral hypoglycemic drugs; Z79.899 Other long term (current) drug therapy
CPT/HCPCS: 36415; 80048; 85025; 71020; 99283; 96374; 96361; J2405; 93306

== ENCOUNTER → 2017-03-29 | Outpatient (CLI) | payer MEDICARE, OTHER ==
--- NOTE | 2017-03-30 12:25 | ECHOF ---
Referral Reason:Dyspnea R06.09 MEASUREMENTS -------- HEIGHT: 188.0 cm WEIGHT: 120.2 kg BP: 125/71 RVIDd: 3.5 cm (< 3.3) IVSd: 1.1 cm (0.6 - 1.1) LVIDd: 4.4 cm (3.9 - 5.3) LVPWd: 1.1 cm (0.6 - 1.1) IVSs: 1.6 cm LVIDs: 2.7 cm LVPWs: 1.5 cm LA Diam: 3.5 cm (2.7 - 3.8) LAESV Index (A-L): 15.18 ml/m Ao Diam: 3.3 cm (2.0 - 3.7) AV Cusp: 2.2 cm (1.5 - 2.6) MV EXCURSION: 16.226 mm (> 18.000) MV EF SLOPE: 74 mm/s (70 - 150) EPSS: 0.4 cm MV E Jaspreet: 0.69 m/s MV DecT: 255 ms MV A Jaspreet: 0.77 m/s MV E/A Ratio: 0.89 FINDINGS -------- Sinus rhythm. This was a technically adequate study. The left ventricular size is normal. There is borderline concentric left ventricular hypertrophy. Overall left ventricular systolic function is normal with, an EF between 60 - 65 %. The right ventricle is mildly enlarged. Normal LA size by volume 22+/-6 ml/m2. The right atrium is normal in size. The aortic valve is trileaflet and appears structurally normal. The mitral valve is normal. The tricuspid valve appears structurally normal. Trace/mild (physiologic) pulmonic regurgitation. The aortic root size is normal. IVC Not well visulized. There is no pericardial effusion. CONCLUSIONS -------- 1. Sinus rhythm. 2. The mitral valve is normal. 3. The tricuspid valve appears structurally normal. 4. Trace/mild (physiologic) pulmonic regurgitation. 5. The aortic root size is normal. 6. IVC Not well visulized. 7. There is no pericardial effusion. 8. This was a technically adequate study. 9. The left ventricular size is normal. 10. There is borderline concentric left ventricular hypertrophy. 11. Overall left ventricular systolic function is normal with, an EF between 60 - 65 %. 12. The right ventricle is mildly enlarged. 13. Normal LA size by volume 22+/-6 ml/m2. 14. The right atrium is normal in size. 15. The aortic valve is trileaflet and appears structurally normal. [employer] SUPERVISOR: Dayan Stout RDCS
== END ==
LOC: RADECHMAIN 14:35
PROVIDERS: ATTEND Family Medicine
DX: I51.7 Cardiomegaly (principal)
CPT/HCPCS: 93306

== ENCOUNTER → 2017-06-24 | Outpatient (CLI) | payer MEDICARE, OTHER ==
[2017-06-24 13:39] LABS: Basophils % (A) 0 %; Eosinophils % (A) 0 %; HCT 48.4 % (39.0-53.0); HGB 15.4 gm/dL (13.0-17.5); Lymphocytes # (A) 0.6 k/uL (1.0-4.8); Lymphocytes % (A) 5 %; MCH 28.8 pg (25.0-35.0); MCHC 31.8 g/dL (31.0-37.0); MCV 90.5 fL (80.0-100.0); Mean Platelet Volume 6.9; Monocytes # (A) 0.4 k/uL (0-1.0); Monocytes % (A) 3 %; Neutrophils # (A) 10.4 k/uL (1.3-7.7); Neutrophils % (A) 91 %; Platelet Count 295 k/uL (150-450); RBC 5.34 m/uL (4.30-5.90); RDW 13.8 % (11.5-15.5); WBC 11.5 k/uL (3.8-10.6)
[2017-06-24 13:59] LABS: ALT 37 U/L (21-72); AST 22 U/L (17-59); Albumin 4.5 g/dL (3.5-5.0); Alkaline Phosphatase 80 U/L (38-126); Anion Gap 15 mmol/L; Blood Urea Nitrogen 23 mg/dL (9-20); Calcium 10.3 mg/dL (8.4-10.2); Carbon Dioxide 25 mmol/L (22-30); Chloride 102 mmol/L (98-107); Cholesterol 177 mg/dL (<200); Glucose 155 mg/dL (74-99); HDL Cholesterol 53 mg/dL (40-60); LDL Cholesterol,Calculated 110 mg/dL (0-99); Potassium 4.4 mmol/L (3.5-5.1); Sodium 142 mmol/L (137-145); Total Bilirubin 0.5 mg/dL (0.2-1.3); Total Protein 7.5 g/dL (6.3-8.2); Triglycerides 70 mg/dL (<150)
== END | disposition home or self-care (01) ==
LOC: LABWHC1 13:02
PROVIDERS: ATTEND Family Medicine
DX: E78.5 Hyperlipidemia, unspecified (principal)
CPT/HCPCS: 36415; 80053; 80061; 85025

== ENCOUNTER → 2017-08-31 | Outpatient (CLI) | payer MEDICARE, OTHER ==
[2017-08-31 11:38] LABS: Basophils % (A) 0 %; Eosinophils # (A) 0.1 k/uL (0-0.7); Eosinophils % (A) 2 %; HCT 46.4 % (39.0-53.0); HGB 14.3 gm/dL (13.0-17.5); Lymphocytes # (A) 1.3 k/uL (1.0-4.8); Lymphocytes % (A) 17 %; MCH 27.8 pg (25.0-35.0); MCHC 30.9 g/dL (31.0-37.0); MCV 90.1 fL (80.0-100.0); Mean Platelet Volume 7.2; Monocytes # (A) 0.4 k/uL (0-1.0); Monocytes % (A) 5 %; Neutrophils # (A) 5.8 k/uL (1.3-7.7); Neutrophils % (A) 75 %; Platelet Count 272 k/uL (150-450); RBC 5.15 m/uL (4.30-5.90); RDW 15.2 % (11.5-15.5); WBC 7.7 k/uL (3.8-10.6)
[2017-08-31 11:52] LABS: Albumin 3.9 g/dL (3.5-5.0); C Reactive Protein 6.6 mg/L (<10.0); Calcium 9.7 mg/dL (8.4-10.2); Potassium 4.1 mmol/L (3.5-5.1); Total Bilirubin 0.5 mg/dL (0.2-1.3); Total Protein 6.7 g/dL (6.3-8.2); Uric Acid 5.5 mg/dL (3.5-8.5)
[2017-08-31 13:19] LABS: Erythrocyte Sedimentation Rate 19 mm/hr (0-15)
[2017-08-31 18:43] LABS: Hemoglobin A1C 7.7 % (4.0-6.0)
== END | disposition home or self-care (01) ==
LOC: LABWHC1 11:05
PROVIDERS: ATTEND Family Medicine
DX: E11.9 Type 2 diabetes mellitus without complications (principal); E78.5 Hyperlipidemia, unspecified; M10.9 Gout, unspecified; B99.9 Unspecified infectious disease
CPT/HCPCS: 36415; 80053; 80061; 83036; 84550; 85025; 85652; 86140

== ENCOUNTER → 2017-10-08 | Outpatient (CLI) | payer MEDICARE, OTHER ==
--- NOTE | 2017-10-08 15:23 | MR ---
EXAMINATION TYPE: MR thoracic spine wo con DATE OF EXAM: 10/08/2017 COMPARISON: Chest x-ray March 29, 2017 HISTORY: thoracic pain per order. Pain for several years with history of prior back surgery 1994 per patient. TECHNIQUE: Multiplanar, multisequence imaging of thoracic spine is performed without contrast FINDINGS:Spinal cord shows normal course, caliber, and signal as it courses the thoracic spine. Vert ebral body heights are satisfactory. Alignment is somewhat straightened. This space heights are fair ly well-maintained. Small posterior disc herniation is seen T9-T10 level on sagittal image 12. . Ther e is mild multilevel anterior spurring. Bone marrow signal intensity is maintained. There is artifact from anterior fusion hardware C6-C7 level. Counting image shows disc herniations effacing anterior t hecal sac at C3-C4 and C5-C6 levels. Axial images at C7-T1 level show left paracentral disc protrusion effacing anterolateral thecal sac a nd causing asymmetric moderate left-sided neural foraminal narrowing. Artifact from anterior fusion h ardware is noted. Right-sided neural foramen is patent. Axial images at T3-T4 level show left paracentral disc protrusi on effacing anterolateral thecal sac on axial image 12. Axial images at T4-T5 level show more prominent left paracentral disc protrusion effacing anterolater al thecal sac on axial image 8. Axial images show some uncovertebral facet degenerative changes bilaterally in the lower thoracic spi ne. No additional suspicious posterior disc herniations are seen. There is confirmation of right para central disc protrusion effacing anterolateral thecal sac at T9-T10 level on axial image 11 series 70 1. No suspicious incidental findings are seen in the upper abdomen or in the visualized thorax. IMPRESSION: Postsurgical change C6-C7 level. Straightening of thoracic spine with multilevel disc her niations noted as detailed above.
== END | disposition home or self-care (01) ==
LOC: RADMRIMAIN 13:46
PROVIDERS: ATTEND Psychiatry & Neurology Pain Medicine
DX: M51.24 Other intervertebral disc displacement, thoracic region (principal)
CPT/HCPCS: 72146

== ENCOUNTER → 2018-01-08 | Outpatient (CLI) | payer MEDICARE, OTHER | END | disposition home or self-care (01) | LOC: RADMRIMAIN 08:00 | PROVIDERS: ATTEND Psychiatry & Neurology Pain Medicine | DX: Z53.9 Procedure and treatment not carried out, unspecified reason (principal) ==

== ENCOUNTER → 2018-01-28 | Outpatient (CLI) | payer MEDICARE, OTHER ==
--- NOTE | 2018-01-28 11:13 | MR ---
EXAMINATION TYPE: MR lumbar spine wo con DATE OF EXAM: 01/28/2018 COMPARISON: NONE HISTORY: Low back pain per order. Back pain for years going into both lower extremities per patient. TECHNIQUE: Multiplanar, multisequence imaging of the lumbar spine is performed without IV contrast. FINDINGS: Sagittal images of the lumbar spine show vertebral body heights and alignment to appear sat isfactory. Multilevel disc desiccation is seen. Mild disc space narrowing L5-S1 level is present. No large posterior disc herniations are present on sagittal images. The conus medullaris is normal in po sition and signal ending mid L1 level. The bone marrow signal intensity is within normal limits. Axial images show the T12-L1 and L1-L2 levels all to appear within normal limits. Axial images at the L2-L3 and the L3-L4 level show mild broad disc bulges but spinal canal is preserv ed. There is mild left-sided anterior inferior neural foraminal narrowing L3-L4 level. Axial images at the L4-L5 level show broad-based central disc protrusion but spinal canal is preserve d, there is mild left greater than right bilateral anterior inferior neural foraminal narrowing. Axial images at L5-S1 level show mild facet degenerative changes bilaterally. Spinal canal is preserv ed. Bilateral neural foramina are patent. No suspicious retroperitoneal findings are seen. Paraspinal muscle bulk is maintained. IMPRESSION: Some mild multilevel degenerative changes in lumbar spine as detailed above, no significa nt disc herniation is seen to account for patient's radiculopathy type symptoms.
--- NOTE | 2018-01-28 11:26 | MR ---
MRI CERVICAL SPINE: CLINICAL HISTORY: Cervicalgia per order. Constant pain causing pain or weakness into left arm and fin gers per patient. History of prior neck surgery. TECHNIQUE: Multiplanar, multisequence imaging of the cervical spine is performed without and with IV contrast, 12 cc of gadolinium was given intravenously. COMPARISON: None. FINDINGS: Sagittal images of the cervical spine show the craniocervical junction to appear within nor mal limits. The cervical and upper thoracic spinal cord is normal in caliber and signal. Vertebral alignment is anatomic. There is artifact from anterior fusion material with ossific fusion artificial disc C6-C7 level. There is suspected mild to moderate disc space narrowing with anterior spurring C5 -C6 level. There is mild to moderate disc space narrowing C7-T1 level. Posterior disc herniations are seen at these levels and C3-C4 level on sagittal images. The bone marrow signal intensity is within normal limits. No suspicious postcontrast enhancement is seen. Axial images show the C2-C3 level to appear within normal limits. Axial images at C3-C4 level show broad-based left paracentral disc protrusion effacing anterior theca l sac with some left-sided uncovertebral facet degenerative changes there is moderate to severe left- sided neural foraminal narrowing. Right-sided neural foramen is patent. Axial images at C4-C5 level show uncovertebral facet degenerative changes bilaterally contributing to moderate right and mild left-sided neural foraminal narrowing. There is suggestion of central disc p rotrusion effacing anterior thecal sac on axial image 36 which is not reproducible on sagittal images . Axial images at C5-C6 level show broad-based right spur disc complex effacing anterolateral thecal sa c and causing asymmetric moderate to advanced right-sided neural foraminal narrowing. There is mild l eft-sided neural foraminal narrowing due to spur disc complex at this level. Axial images at C6-C7 level show artifact from surgical change otherwise are felt within normal limit s. Axial images at C7-T1 level show left paracentral disc protrusion effacing anterolateral thecal sac o n axial image 7, bilateral neural foramina are patent. IMPRESSION: Surgical change C6-C7 level with satisfactory alignment. Multilevel degenerative changes in the cervical spine are seen as detailed above.
== END | disposition home or self-care (01) ==
LOC: RADMRIMAIN 09:00
PROVIDERS: ATTEND Psychiatry & Neurology Neurology
DX: M47.816 Spondylosis without myelopathy or radiculopathy, lumbar region (principal); M47.812 Spondylosis without myelopathy or radiculopathy, cervical region
CPT/HCPCS: 82565; 84520; 72148; 72156; 36415; A9581

== ENCOUNTER → 2018-06-22 | Outpatient (CLI) | payer MEDICARE, OTHER ==
--- NOTE | 2018-06-22 22:37 | CT ---
EXAMINATION TYPE: CT angio chest DATE OF EXAM: 06/22/2018 COMPARISON: None HISTORY: 58-year-old male dyspnea on exertion, Shortness of breath upon exertion. TECHNIQUE: Contiguous axial scanning of the chest performed with IV Contrast, patient injected with 1 00ml mL of Isovue 370. Coronal/sagittal MIP reconstructions performed. The patient was immediately re scanned given initial suboptimal pulmonary artery opacification. CT DLP: 1047.2 mGycm Automated exposure control for dose reduction was used. FINDINGS: Heart is normal size without pericardial effusion. Coronary vessel calcifications are present. Aorta normal caliber with conventional arch. Branching anatomy. Focal moderate to severe atherosclerotic calcifications at the origin of the left subclavian artery a nd probably moderate at the origin of the left vertebral artery. There is suboptimal opacification of the pulmonary arterial system. No evidence for large central pul monary embolus. No definite lobar embolus. Many of the segmental and more distal arterial branches ar e nondiagnostic. No thoracic lymphadenopathy by CT size criteria. Number of small right hilar lymph nodes are demonstr ated in nonenlarged left hilar lymph node measuring 8 mm. 4 mm right mid lung pulmonary nodule axial image 82. No consolidation or pleural effusion. Visualized upper abdomen shows moderate stool and a tiny anterior splenule and is probable cyst measu ring 1.5 cm along the posterior aspect of the gallbladder fossa. Bones: ACDF hardware. Mild endplate spondylosis. No osseous destructive process. IMPRESSION: 1. SUBOPTIMAL CONTRAST BOLUS. NO DEFINITE LARGE CENTRAL OR LOBAR PULMONARY BLOOD. MANY OF THE SEGMENT AL AND MORE DISTAL ARTERIAL BRANCHES ARE NONDIAGNOSTIC AND EMBOLI IN THESE LOCATIONS CANNOT BE RELIAB LY EXCLUDED ON THE BASIS OF THIS EXAM. 2. 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 3. NONSPECIFIC 4 MM RIGHT MID LUNG PULMONARY NODULE. ONE-YEAR FOLLOW-UP CT RECOMMENDED TO REASSESS.
== END ==
LOC: RADCTMAIN 15:54
PROVIDERS: ATTEND Internal Medicine
DX: I70.8 Atherosclerosis of other arteries (principal); R91.1 Solitary pulmonary nodule
CPT/HCPCS: 82565; 84520; 71275; 36415; Q9967

== ENCOUNTER 2018-08-17 11:12 | Day surgery (SDC) | payer MEDICARE, OTHER ==
[2018-08-12 11:44] VITALS: BMI 34.0
[~2018-08-17 11:12] MED LIST: DEXAMETHASONE SOD PHOSPHATE 10 MG/ML 1 ML VIAL IV ONE; HYDROmorphone 0.5 MG/0.5 ML SYRINGE IVP PRN; LACTATED RINGERS 1,000 ML IV SCH; LIDOCAINE 1% 20 ML VIAL (10MG/ML) FOR IV START INTRADERMA PRN; MIDAZOLAM (PF) 2 MG/2 ML VIAL IV PRN; ONDANSETRON 4 MG/2 ML VIAL IVP ONE; SCOPOLAMINE 1.5MG/72HR PATCH TRANSDERM ONE; ceFAZolin 3 GM in SODIUM CHLORIDE 0.9% 100 ML IVPB ONE
[2018-08-17 11:53] LABS: Glucose,Whole Blood 150 mg/dL (75-99)
[2018-08-17] MEDS ORDERED: fentaNYL (PF) 50 MCG/ML 2 ML AMP ONE (13:52)
[2018-08-17] MEDS ORDERED: MIDAZOLAM 2 MG/2 ML VIAL ONE (13:52)
[2018-08-17] MEDS ORDERED: SUCCINYLCHOLINE CHLORIDE 100 MG/5 ML SYR IV ONE (13:52)
[2018-08-17] MEDS ORDERED: PROPOFOL 10 MG/ML 20 ML VIAL IV ONE (13:52)
[2018-08-17] MEDS ORDERED: LIDOCAINE 1% INJ 10MG/ML (20 ML MDV) ONE (13:52)
[2018-08-17] MEDS ORDERED: LACTATED RINGERS 1,000 ML IV ONE (15:42)
--- NOTE | 2018-08-17 15:59 | FL ---
EXAMINATION TYPE: FL guidance operating room, XR foot limited RT DATE OF EXAM: 08/17/2018 CLINICAL HISTORY: Right toe amputation. TECHNIQUE: Fluoroscopy. Limited intraoperative views right foot. COMPARISON: None. FINDINGS: Fluoroscopic guidance was provided during right toe amputation procedure performed by Dr. Powell. A total of 37 seconds of fluoroscopic time was utilized during the procedure and 2 spot in traoperative images are acquired. Intraoperative images acquired show advancement of hardware towards first toe and placement of K wire s in the third and fourth toes. IMPRESSION: As Above.
[2018-08-17 16:18] VITALS: TEMP 97.3
[2018-08-17 16:19] VITALS: RESP 18
--- NOTE | 2018-08-17 16:59 | P.OP ---
Date of Procedure: 08/17/18 Preoperative Diagnosis: 1. 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 Right rigid third claw toe 3. Right rigid fourth claw toe 4. Right flexible clawing of the hallux (extension of the first MTP joint and flexion of the hallux IP joint) 5. Right rigid fifth claw toe 6. Type II diabetes mellitus 7. Peripheral neuropathy Postoperative Diagnosis: Same Procedure(s) Performed: 1. Correction of flexible hallux clawing with FHL transfer to proximal phalanx 2. Correction of rigid third claw toe with PIP resection arthroplasty and flexor tendon tenotomy 3. Correction of rigid fourth claw toe with PIP resection arthroplasty and flexor tendon tenotomy 4. Correction of rigid fifth claw toe deformity with percutaneous flexor and extensor tenotomies 5. Partial second toe amputation through the proximal phalanx Anesthesia: MADELEINE Surgeon: Zeb Powell Raimann Machine Operator #1: Sara Rogers Estimated Blood Loss (ml): 10 IV fluids (ml): 1,200 Pathology: none sent Condition: stable Disposition: PACU Indications for Procedure: The patient is a very pleasant 58-year-old male with a medical history significant for type 2 diabetes and peripheral neuropathy. The patient has previously been managed by Dr. Renae. The patient was referred to orthopedics for definitive management of a neuropathic ulcer of the right second toe and deformity of the toes. I met with the patient in the office and obtained an MRI which showed ulceration of the second toe and osteomyelitis of the distal phalanx. We discussed treatment options including continued nonsurgical treatment versus surgery. My recommendation was to correct the flexible hallux claw and with an FHL tendon transfer to the proximal phalanx, correct the rigid third and fourth claw toes with PIP resection arthroplasty and percutaneous flexor tenotomies, correct the fifth toe with percutaneous flexor and extensor tenotomies and amputate the second toe through the proximal phalanx. We discussed the potential risks and complication of all these procedures including but not limited to risk of anesthesia, superficial infection, deep infection, delayed wound healing, wound necrosis, loss of ascus upon the toes necessitating pin removal or possibly amputation, need for proximal amputation, chronic pain, chronic swelling, recurrent deformity, DVT, PE, other medical complications, and possibly loss of life or limb. The patient voiced his understanding of these potential complications and also acknowledges other less common complications are possible. The patient also acknowledges that he is at a higher risk of having a complication due to his diabetes. Description of Procedure: The patient was identified in holding and the correct right foot was marked by initials. I reviewed the consent form with the patient and his friend. All their questions were answered. The patient was then brought back to the operating room by anesthesia. He was positioned on the OR table where a general anesthetic and preoperative antibiotics were administered. A tourniquet was applied to the proximal aspect of the right thigh. All bony prominences were padded. The right leg was then prepped and draped in standard sterile fashion. Prior to starting surgery timeout was performed identifying the correct patient, operative extremity, and procedure. The patient's leg was then elevated, exsanguinated with an Esmarch bandage and the tourniquet was inflated to 250 mmHg. I began by performing a second toe amputation. [place] incisions were marked out over the distal aspect of the proximal phalanx with an equally sized dorsal and plantar flap. Skin incision was made with a scalpel all the way down to bone. The flexor and extensor tendons were cut proximally and allowed to retract. The toe was amputated through the PIP joint and passed off to the back table. The vessels were controlled with electrocautery. A small microsagittal saw was used to cut the proximal phalanx. A Liam and rasper used to contour the cut and of bone. The wound was irrigated and closed in layers. Attention was then turned to the big toe. A midaxial incision was marked out over the medial aspect of the proximal and distal phalanx. Skin incision was made with a scalpel and dissection was carried down carefully to the subcutaneous tissue with tenotomy scissors. The neurovascular bundle was identified and retracted plantarly. The flexor tendon sheath was incised and the FHL tendon was released distally off of the distal phalanx. Dissection was then carried dorsally over the proximal phalanx. A 3.5 mm drill bit was used to create a hole from dorsal to plantar through the metaphysis of the proximal phalanx. The FHL tendon was then transferred from plantar to dorsal through this drill hole and secured to itself with an O- FiberWire stitch. The wound was copiously irrigated and closed in layers. Attention was then turned to the third toe. A longitudinal incision was marked out dorsally over the PIP joint. Skin incision was made and dissection was carried down carefully through subcutaneous tissue. The extensor mechanism was cut through the PIP joint. The collateral ligaments were released and the head of the proximal phalanx was exposed. A small microsagittal saw was used to remove the head of the proximal phalanx the metaphyseal flare. An incision was made in the plantar aspect of the PIP joint capsule and the flexor tendons were sharply incised. A double-ended 0.0625 K wire was driven through the PIP joint out the tip of the toe. The PIP joint was reduced and the K wire was driven back through the proximal phalanx and across the MTP joint holding the toe straight. The wound was then copiously irrigated and closed in layers. The pin was cut and capped. Attention was then turned to the fourth toe. A longitudinal incision was marked out dorsally over the PIP joint. Skin incision was made and dissection was carried down carefully through subcutaneous tissue. The extensor mechanism was cut through the PIP joint. The collateral ligaments were released and the head of the proximal phalanx was exposed. A small microsagittal saw was used to remove the head of the proximal phalanx the metaphyseal flare. An incision was made in the plantar aspect of the PIP joint capsule and the flexor tendons were sharply incised. A double-ended 0.0625 K wire was driven through the PIP joint out the tip of the toe. The PIP joint was reduced and the K wire was driven back through the proximal phalanx and across the MTP joint holding the toe st raight. The wound was then copiously irrigated and closed in layers. The pin was cut and capped. Attention was then turned to the fifth toe. Percutaneous incisions were made over the dorsolateral midfoot and plantar aspect at the base of the fifth toe. The flexor and extensor tendons were then sharply incised. The wounds were irrigated and closed with interrupted 3-0 nylon. At this point the tourniquet was let down. All the toes were well perfused with brisk capillary refill. Sterile dressings were applied followed by an Aniceto wrap. The patient was placed in a tall cam boot and transferred to a [facility]. He was extubated and brought to PACU having tolerated the procedure well. Plan: The patient is going to discharge home as an outpatient. He can heel weight-bear on his right leg in a boot. He was instructed on twice daily pin site care with a Q-tip dipped in peroxide. Due to his history of diabetes and a prior toe ulcer I'm going to treat him with prophylactic antibiotics. A prescription was given for Bactrim. He will need follow-up in the office in 1 week for a wound check. He does not need x-rays at that time.
[2018-08-17 17:44] VITALS: BP 118/73; PULSE 80
== END 2018-08-17 18:15 | disposition home or self-care (01) ==
LOC: OR 11:12
PROVIDERS: ATTEND Orthopaedic Surgery
DX: M20.5X1 Other deformities of toe(s) (acquired), right foot (principal); E11.42 Type 2 diabetes mellitus with diabetic polyneuropathy; L97.519 Non-pressure chronic ulcer of other part of right foot with unspecified severity; E11.69 Type 2 diabetes mellitus with other specified complication; M86.9 Osteomyelitis, unspecified; I11.9 Hypertensive heart disease without heart failure; E78.5 Hyperlipidemia, unspecified; K21.9 Gastro-esophageal reflux disease without esophagitis; N28.9 Disorder of kidney and ureter, unspecified; I25.119 Atherosclerotic heart disease of native coronary artery with unspecified angina pectoris; J44.9 Chronic obstructive pulmonary disease, unspecified; I25.2 Old myocardial infarction; E55.9 Vitamin D deficiency, unspecified; Z87.891 Personal history of nicotine dependence; Z87.442 Personal history of urinary calculi; Z80.1 Family history of malignant neoplasm of trachea, bronchus and lung; Z80.0 Family history of malignant neoplasm of digestive organs; Z79.2 Long term (current) use of antibiotics; Z79.82 Long term (current) use of aspirin; Z79.899 Other long term (current) drug therapy; Z83.3 Family history of diabetes mellitus; Z79.51 Long term (current) use of inhaled steroids; Z79.84 Long term (current) use of oral hypoglycemic drugs; Z79.891 Long term (current) use of opiate analgesic
CPT/HCPCS: 88305; 88311; 73620; 28285 ×2; 28124; 28010; J2250; J1100; J0690; J2405; J2001; J3010; J0330; J2704

== ENCOUNTER → 2018-11-09 | Outpatient (CLI) | payer MEDICARE, OTHER | END | disposition home or self-care (01) | LOC: LABWHC1 16:17 | PROVIDERS: ATTEND Podiatrist Foot & Ankle Surgery | DX: N18.9 Chronic kidney disease, unspecified (principal) | CPT/HCPCS: 36415; 82565; 84520 ==

== ENCOUNTER 2018-12-14 10:48 | Day surgery (SDC) | payer MEDICARE, OTHER ==
[2018-12-09 09:00] VITALS: BMI 73.7
[~2018-12-14 10:48] MED LIST changes: -MIDAZOLAM (PF) 2 MG/2 ML VIAL IV PRN; -ceFAZolin 3 GM in SODIUM CHLORIDE 0.9% 100 ML IVPB ONE; +ceFAZolin IN SWFI 2 GM/20 ML SYRINGE IVP ONE
[2018-12-14] MEDS ORDERED: MIDAZOLAM (PF) 2 MG/2 ML VIAL IV ONE (11:33)
[2018-12-14 11:40] LABS: Glucose,Whole Blood 109 mg/dL (75-99)
[2018-12-14] MEDS ORDERED: LIDOCAINE 1% INJ 10MG/ML (20 ML MDV) ONE (12:33)
[2018-12-14] MEDS ORDERED: MIDAZOLAM 2 MG/2 ML VIAL ONE (12:33)
[2018-12-14] MEDS ORDERED: ePHEDrine SULFATE/0.9% NACL/PF 50 MG/5 ML SYRINGE IV ONE (12:33)
[2018-12-14] MEDS ORDERED: DEXAMETHASONE SOD PHOSPHATE 4 MG/ML 1 ML VIAL ONE (12:33)
[2018-12-14] MEDS ORDERED: SUCCINYLCHOLINE CHLORIDE 100 MG/5 ML SYR IV ONE (12:33)
[2018-12-14] MEDS ORDERED: PROPOFOL 10 MG/ML 20 ML VIAL IV ONE (12:33)
[2018-12-14] MEDS ORDERED: ROPIVACAINE 5 MG/ML 30 ML VIAL ONE (12:33)
[2018-12-14] MEDS ORDERED: fentaNYL (PF) 50 MCG/ML 2 ML AMP ONE (12:33)
--- NOTE | 2018-12-14 12:42 | P.ANPRN ---
Procedure Note - Anesthesia - Nerve Block Performed Left Popliteal Single Time Out Performed: Yes Date of Procedure: 12/14/18 Procedure Start Time: 11:32 Procedure Stop Time: 11:42 Location of Patient Procedure: PreOp Indication: Acute Post-Operative Pain, Requested by physician Sedation Type: Sedate with meaningful contact maintained Preparation: Sterile Prep, Sterile Dressing Position: Right Lateral Catheter: None Needle Types: Pajunk Needle Gauge: 20 Technique: Ultrasound Injectate: 0.5% Ropivacaine (see comment for volume) (30 ml)
[2018-12-14] MEDS ORDERED: LACTATED RINGERS 1,000 ML IV ONE (13:58)
--- NOTE | 2018-12-14 14:40 | P.OP ---
Date of Procedure: 12/14/18 Preoperative Diagnosis: 1. Left flexible clawing, hallux 2. Left rigid second claw toe with full-thickness neuropathic ulcer 3. Left rigid third claw toe 4. Left rigid fourth claw toe 5. Flexible left fifth toe deformity 6. Type II diabetic with peripheral neuropathy and prior right foot surgery Postoperative Diagnosis: Same Procedure(s) Performed: 1. Correction of left flexible claw toe with FHL tendon transfer 2. Correction of left rigid third claw toe with PIP resection arthroplasty and Girdlestone-Sherry flexor to extensor tendon transfer 3.Correction of left rigid fourth claw toe with PIP resection arthroplasty and Girdlestone-Sherry flexor to extensor tendon transfer 4. Left 2nd toe amputation 5. Left 5th toe percutaneous flexor and extensor tendon transfer Anesthesia: MADELEINE Surgeon: Zeb Powell [employer] Hearing Officer #1: Sara Rogers Estimated Blood Loss (ml): 5 IV fluids (ml): 750 Pathology: none sent Condition: stable Disposition: PACU Indications for Procedure: The patient is a very pleasant 58-year-old male with a medical history significant for type 2 diabetes and ulceration able to his feet. He previously underwent surgery on the right foot and did well. Had similar problems on the left foot. He developed rigid deformities of his lesser toes including a full- thickness neuropathic ulcer at the tip of the second toe. He also had flexible clawing of the hallux. We discussed continued nonsurgical treatment versus surgery. The patient requested surgical treatment as he had previously had surgery on the right and did well. My proposed surgery was to correct the flexible deformity of his hallux with an FHL tendon transfer, and today the second toe, correct the third and fourth toe deformities with PIP resection arthroplasty and flexor to extensor tendon transfers and to perform percutaneous flexor and extensor tendon releases on the fifth toe. We had a lengthy discussion on the potential risks and complication of surgery with the patient is well familiar with the previously having undergone the same procedure on the right foot. These risks include but are not limited to risk of anesthesia, superficial infection, deep infection, delayed wound healing callus for show necrosis, recurrent deformity, need for further surgery including amputation, and inability to (drillable function, DVT, PE, other medical complications, and possibly loss of life or limb. The patient voiced that his risk of surgery is higher because is a diabetic. He provided his verbal and written consent to go forward with surgery. Description of Procedure: The patient's benefit holding and the correct left leg was marked with my initials. I reviewed the consent form with the patient. All of his questions were answered. A popliteal and saphenous nerve block was placed by anesthesia. The patient was then brought back to the operating room. He was positioned on the OR table where general anesthetic was given. The drain was put the proximal aspect of the left leg. The left leg was then prepped and draped in the standard sterile fashion. Prior to starting surgery timeout performed identifying the correct patient, operative extremity, and procedure. The patie nt's leg was then elevated, exsanguinated with an Esmarch bandage, and the tourniquet was inflated to 250 mmHg. I began by performing second 20 patient. [place] incisions were made over the proximal phalanx. Sharp incision with a scalpel down to the level of proximal phalanx. A saw was used to remove the middle phalanx in the mid shaft. The wound was thoroughly irrigated and closed in layers. Attention was then turned to the big toe. A mid medial incision was marked out starting at the MTP joint and extended distally over the proximal phalanx. Dissection was carried down carefully to the subcu tissue with tenotomy scissors. The flexor tendon sheath was opened and the FHL tendon was released distally the distal phalanx. I marked out the base of the proximal pharynx with fluoroscopy and a 3.5 mm drill bit was used to create a tunnel from dorsal to plantar. A tendon passer was then used after sutures were placed in the FHL tendon and the suture was shuttled from plantar to dorsal to the drill hole proximal phalanx. The FHL tendon was then sutured to itself nicely correcting the deformity. The wound was thoroughly irrigated and closed in layers. Attention was then turned to the third toe. A longitudinal incision was made over the dorsal aspect of the toe. Skin incision made with a scalpel dissection was carried down carefully to the PIP joint. The capsule was incised transversely at the level of the joint. The collateral ligaments were released exposing the head of the proximal phalanx. A small microsagittal saw was used to cut the bone at the metaphyseal flare. The floor of the PIP joint was then incised and the short flexor tendons were released. The long flexor tendon was also released.. The tendon was splint along its raphe and transferred subperi osteally. It was sutured to the extensor mechanism with 3-0 ethibond. A double- ended 0.0625 K wire was driven antegrade through the middle phalanx of the tip of the toe. The PIP joint was reduced and the K wire was driven retrograde across the proximal phalanx and into the metatarsal head. The pin was then bent, cut, and capped. The wound was thoroughly irrigated and closed in layers. Attention was then turned to the fourth toe. A longitudinal incision was made over the dorsal aspect of the toe. Skin incision made with a scalpel dissection was carried down carefully to the PIP joint. The capsule was incised transversely at the level of the joint. The collateral ligaments were released exposing the head of the proximal phalanx. A small microsagittal saw was used to cut the bone at the metaphyseal flare. The floor of the PIP joint was then incised and the short flexor tendons were released. The long flexor tendon was also released.. The tendon was splint along its raphe and transferred subperiosteally. It was sutured to the extensor mechanism with 3-0 ethibond. A double-ended 0.0625 K wire was driven antegrade through the middle phalanx of the tip of the toe. The PIP joint was reduced and the K wire was driven retrograde across the proximal phalanx and into the metatarsal head. The pin was then bent, cut, and capped. The wound was thoroughly irrigated and closed in layers. Attention was then turned to the fifth toe. A percutaneous stab incision was made at the base the toe on the flexor tendon was released. A small stab incision was made proximally over the midfoot and the long extensor tendon was sharply released. The wound was thoroughly irrigated and closed in layers. Sterile dressings were applied followed by Betadine soaked Adaptic, 4 x 4, fluff s, web roll, and an Aniceto wrap. The patient was then awoken from his anesthetic and transferred to a [facility], and brought to recovery procedure well. Plan: The patient can discharge home as an outpatient. He is to be nonweightbearing in a tall boot until the block wears off. Once the block wears off he can heel weight-bear in his boot. He was instructed on normal wound care including twice daily pin site care with a Q-tip tipped and peroxide, daily dressing changes starting on postoperative day #2, and tight control of his blood sugars.
[2018-12-14 14:45] VITALS: TEMP 97.7
--- NOTE | 2018-12-14 15:00 | FL ---
EXAMINATION TYPE: FL guidance operating room, XR foot limited LT DATE OF EXAM: 12/14/2018 CLINICAL HISTORY: Left foot infection. TECHNIQUE: Fluoroscopy. Limited intraoperative views left foot. COMPARISON: None. FINDINGS: Fluoroscopic guidance was provided during left foot amputation procedure performed by Dr. Powell. A total of 3 seconds of fluoroscopic time was utilized during the procedure and 5 spot int raoperative images are acquired. Intraoperative images acquired show advancement of surgical hardware at base of first proximal phalan x and placement of fixating K wires through the third and fourth toes, amputation defect of second to e is noted on all images. IMPRESSION: As Above.
[2018-12-14 15:01] LABS: Glucose,Whole Blood 130 mg/dL (75-99)
[2018-12-14 15:10] VITALS: RESP 18
[2018-12-14 15:52] VITALS: BP 105/71; PULSE 95
== END 2018-12-14 16:29 | disposition home or self-care (01) ==
LOC: OR 10:48
PROVIDERS: ATTEND Orthopaedic Surgery
DX: M20.5X2 Other deformities of toe(s) (acquired), left foot (principal); E11.621 Type 2 diabetes mellitus with foot ulcer; L97.528 Non-pressure chronic ulcer of other part of left foot with other specified severity; E11.42 Type 2 diabetes mellitus with diabetic polyneuropathy; E11.51 Type 2 diabetes mellitus with diabetic peripheral angiopathy without gangrene; I25.10 Atherosclerotic heart disease of native coronary artery without angina pectoris; I10 Essential (primary) hypertension; E78.2 Mixed hyperlipidemia; J44.9 Chronic obstructive pulmonary disease, unspecified; K21.9 Gastro-esophageal reflux disease without esophagitis; H91.90 Unspecified hearing loss, unspecified ear; N28.9 Disorder of kidney and ureter, unspecified; I25.2 Old myocardial infarction; Z79.2 Long term (current) use of antibiotics; Z79.82 Long term (current) use of aspirin; Z79.84 Long term (current) use of oral hypoglycemic drugs; Z79.891 Long term (current) use of opiate analgesic; Z79.51 Long term (current) use of inhaled steroids; Z79.899 Other long term (current) drug therapy; Z86.718 Personal history of other venous thrombosis and embolism; Z87.442 Personal history of urinary calculi; Z87.891 Personal history of nicotine dependence; Z83.3 Family history of diabetes mellitus; Z82.49 Family history of ischemic heart disease and other diseases of the circulatory system
CPT/HCPCS: 28313; 28825; 28285 ×2; 28010; 64450; 73620; J2250 ×2; J1100 ×2; J2405; J2001; J3010; J2795; J0330; J2704; J0690; 64445

== ENCOUNTER → 2019-08-22 | Day surgery (SDC) | payer MEDICARE, OTHER ==
[2019-08-17 14:23] VITALS: BMI 32.5
[~2019-08-22] MED LIST changes: -LIDOCAINE 1% 20 ML VIAL (10MG/ML) FOR IV START INTRADERMA PRN; +LIDOCAINE 1% INJ 10MG/ML (20 ML MDV) ONE; +MIDAZOLAM 2 MG/2 ML VIAL IV PRN; +MIDAZOLAM 2 MG/2 ML VIAL ONE; +PROPOFOL 10 MG/ML 20 ML VIAL IV ONE; +ROPIVACAINE 5 MG/ML 30 ML VIAL ONE; -ceFAZolin IN SWFI 2 GM/20 ML SYRINGE IVP ONE; +fentaNYL (PF) 50 MCG/ML 2 ML AMP ONE
[2019-08-22 12:39] VITALS: TEMP 97.6
[2019-08-22 12:55] LABS: Glucose,Whole Blood 93 mg/dL (75-99)
--- NOTE | 2019-08-22 13:12 | P.ANPRN ---
Procedure Note - Anesthesia - Nerve Block Performed Right Axillary Single Time Out Performed: Yes Date of Procedure: 08/22/19 Procedure Start Time: 12:54 Procedure Stop Time: 13:05 Location of Patient: PreOp Indication: Acute Post-Operative Pain, Requested by Surgeon Specifically requested for management of pain by DrJeff: Rolando Lopez Sedation Type: Sedate with meaningful contact maintained Preparation: Sterile Prep Position: Supine Catheter: None Needle Types: Facet Needle Gauge: 20 Ultrasound used to visualize needle placement: Yes Ultrasound used to observe medication spread: Yes Injectate: 0.5% Ropivacaine (see comment for volume) (30 mls) Blood Aspirated: No Pain Paresthesia on Injection Noted: No Resistance on Injection: Normal Image Stored and Saved: Yes Events: Uneventful and Well Tolerated
[2019-08-22 13:29] LABS: Albumin 4.1 g/dL (3.5-5.0); Calcium 9.4 mg/dL (8.4-10.2); Potassium 3.8 mmol/L (3.5-5.1); Total Bilirubin 0.6 mg/dL (0.2-1.3); Total Protein 7.2 g/dL (6.3-8.2)
[2019-08-22 16:14] VITALS: BP 122/77; PULSE 77; RESP 18
[2019-08-22 19:07] LABS: Hemoglobin A1C 6.5 % (4.0-6.0)
--- NOTE | 2019-08-22 23:53 | OP ---
OPERATIVE REPORT DATE OF SURGERY: 08/22/2019 PREOPERATIVE DIAGNOSIS: Basal joint arthritis, right thumb. FINAL DIAGNOSIS: Basal joint arthritis, right thumb. PROCEDURE: Excision of trapezium with ligament reconstruction, tendon interposition, arthroplasty using flexor carpi radialis tendon. ASSISTED LIVING DIRECTOR: Lauren Toledo PROCEDURE DESCRIPTION: The patient was taken to the Operative Suite after an axillary block was performed by the Department of Anesthesia in the holding area with good results. The involved arm was prepped and draped in the usual manner, elevated, exsanguinated and blood pressure tourniquet inflated to 250 mm of mercury. A volar incision was made over the palm of the hand using a Saleem approach. The dissection was taken through the subcutaneous tissue bluntly to identify and to preserve sensory branches. The flexor carpi radialis tendon was initially identified and kept in view throughout the remainder of the procedure. The thenar muscles were then gently dissected off of the volar capsule and reflected ulnarly and distally. Longitudinal arthrotomy was then made into the trapezial metacarpal and scaphotrapezial joints. The trapezium was dissected sharply with a little traction on the thumb and care again, given to monitoring the position of the flexor carpi radialis. The trapezium was osteotomized and removed in piecemeal fashion using rongeur. Again, the flexor carpi radialis tendon was kept intact so as not to be harmed during this portion of the procedure. A drill hole was then made into the base of the first metacarpal, beginning with an awl and enlarged using drill bits and a large curette. A similar hole was drilled on the dorsal aspect of the base of the first metacarpal perpendicular to the plane of the nail bed. Attention was then turned to harvesting the flexor carpi radialis. Approximately 8 to 10 cm proximal to the wrist, small transverse incision was made and blunt dissection was taken through the subcutaneous tissue. The flexor carpi radialis tendon was identified and released to this level. It was retracted into the wrist wound with a gentle tug. A suspension sling arthroplasty was then performed along with ligament reconstruction of the deep volar ligament using the flexor carpi radialis tendon. The edge of the tendon was secured with suture. The suture was then passed into the base of the first metacarpal and brought out through the dorsal drill hole and brought back down upon itself and abductor pollicis longus tendons. It was secured in place with 3-0 PDS suture. It was then brought back around itself, back through the abductor pollicis longus tendons, and back down upon itself again and further secured with 3-0 PDS suture. Again, in this manner reconstruction of the deep volar ligament was accomplished as well as a suspension sling arthroplasty and natural tendon spacer for the joint. Next, a longitudinal incision was made along the ring finger ray distal to the wrist crease. Dissection was taken through the skin and subcutaneous tissue, initially sharp through the skin and then blunt through the subcutaneous tissue to ensure protection of any potential terminal transverse branches of the palmar cutaneous nerve. The palmar fascia was then incised under direct vision longitudinally exposing the transverse carpal ligament. The transverse carpal ligament also was incised under direct visualization. The median nerve was then reflected free of tenosynovium to ensure no adhesions. At this point, a slight hour glass constriction was noted of the median nerve beneath the transverse carpal ligament. Both wounds were again irrigated and were closed with running and interrupted 5-0 nylon suture. A soft bulky dressing was then applied including the volar plaster splint, immobilizing the wrist in neutral position and a thumb spica splint to the IP joint, immobilizing the thumb. The patient was then taken to the Recovery Room in satisfactory condition. SHEN / BALDEMAR: [id number] /
[2019-08-23 00:13] LABS: Microalbumin Creatinine Ratio <30 mg/g Creat (0-30); Urine Creatinine 47.8 mg/dL
== END ==
LOC: OR 11:19
PROVIDERS: ATTEND Orthopaedic Surgery Hand Surgery
DX: M19.041 Primary osteoarthritis, right hand (principal); M19.031 Primary osteoarthritis, right wrist; M19.032 Primary osteoarthritis, left wrist; M67.432 Ganglion, left wrist; G56.03 Carpal tunnel syndrome, bilateral upper limbs; M65.842 Other synovitis and tenosynovitis, left hand; S62.613D Displaced fracture of proximal phalanx of left middle finger, subsequent encounter for fracture with routine healing; H91.90 Unspecified hearing loss, unspecified ear; J44.9 Chronic obstructive pulmonary disease, unspecified; E78.5 Hyperlipidemia, unspecified; I11.9 Hypertensive heart disease without heart failure; E11.40 Type 2 diabetes mellitus with diabetic neuropathy, unspecified; G43.909 Migraine, unspecified, not intractable, without status migrainosus; K21.9 Gastro-esophageal reflux disease without esophagitis; I25.10 Atherosclerotic heart disease of native coronary artery without angina pectoris; E66.9 Obesity, unspecified; Z79.82 Long term (current) use of aspirin; Z79.899 Other long term (current) drug therapy; Z87.442 Personal history of urinary calculi; Z98.890 Other specified postprocedural states; Z87.891 Personal history of nicotine dependence; Z97.3 Presence of spectacles and contact lenses; Z83.3 Family history of diabetes mellitus; Z82.49 Family history of ischemic heart disease and other diseases of the circulatory system; Z86.718 Personal history of other venous thrombosis and embolism; Z79.51 Long term (current) use of inhaled steroids; Z68.32 Body mass index [BMI] 32.0-32.9, adult
CPT/HCPCS: 64415; 76942; 80061; 80053; 84443; 82043; 82570; 83036; 25447; J2250; J1100; J0690; J2405; J2001; J3010; J2795; J2704

== ENCOUNTER → 2020-03-04 | Outpatient (CLI) | payer MEDICARE, OTHER ==
--- NOTE | 2020-03-04 15:20 | US ---
EXAMINATION TYPE: US carotid duplex BILAT DATE OF EXAM: 03/04/2020 COMPARISON: NONE CLINICAL HISTORY: R42 Dizziness and giddiness. EXAM MEASUREMENTS: RIGHT: Peak Systolic Velocity (PSV) cm/sec ----- Right CCA: 147 ----- Right ICA: 131 ----- Right ECA: 131 ICA/CCA ratio: 0.81 RIGHT: End Diastole cm/sec ----- Right CCA: 35.2 ----- Right ICA: 39.1 ----- Right ECA: 18.4 LEFT: Peak Systolic Velocity (PSV) cm/sec ----- Left CCA: 115 ----- Left ICA: 115 ----- Left ECA: 109 ICA/CCA ratio: 1.0 LEFT: End Diastole cm/sec ----- Left CCA: 24 ----- Left ICA: 37.8 ----- Left ECA: 0.0 VERTEBRALS (direction of flow): Right Vertebral: Antegrade Left Vertebral: Antegrade Rhythm: Normal Bilateral plaque at bulbs. This is creating moderate stenosis at the right internal carotid artery b etween 50 and 59%. Mild narrowing of less than 50% is at the left internal carotid artery origin IMPRESSION: 1. Atheromatous plaquing, worse on the right, with moderate narrowing of the right internal carotid a rtery between 50 and 69%. 2. Mild narrowing of less than 50% is within the left internal carotid artery origin Criteria for Assigning % of Stenosis / Diameter reduction (Estimation based on the indirect measurements of the internal carotid artery velocities (ICA PSV). 1. Normal (no stenosis)=ICA PSV < 125 cm/s: ratio < 2.0: ICA EDV<40 cm/s. 2. Less than 50% stenosis=ICA PSV < 125 cm/s: ratio < 2.0: ICA EDV<40 cm/s. 3. 50 to 69% stenosis=ICA PSV of 125 to 230 cm/s: ration 2.0 ? 4.0: ICA EDV 40-100 cm/s. 4. Greater than 70% stenosis to near occlusion= ICA PSV > 230 cm/s: ratio > 4.0: ICA EDV > 100 cm/s. 5. Near occlusion= ICA PSV velocities may be low or undetectable: variable ratio and ICA EDV. 6. Total occlusion=unable to detect flow.
== END | disposition home or self-care (01) ==
LOC: RADUSWWP 14:50
PROVIDERS: ATTEND Psychiatry & Neurology Pain Medicine
DX: I67.2 Cerebral atherosclerosis (principal); I65.21 Occlusion and stenosis of right carotid artery
CPT/HCPCS: 93880

== ENCOUNTER → 2020-05-15 | Outpatient (CLI) | payer MEDICARE, OTHER ==
--- NOTE | 2020-05-15 19:36 | CT ---
EXAMINATION TYPE: CT angio head neck DATE OF EXAM: 05/15/2020 HISTORY: Altered mental status, headache COMPARISON: 03/04/[address] DLP: 447 mGycm. Automated Exposure Control for Dose Reduction was Utilized. TECHNIQUE: CTA scan of the neck is performed without and with IV Contrast, patient injected with 65 ml mL of Isovue 370, axial images are obtained, coronal and sagittal reformatted images are reviewed. Three-D reconstructed images are created on an independent workstation and reviewed. Source images are reviewed. FINDINGS: Carotid/Vascular Structures: The common carotid arteries bifurcate into internal and external carotid vessels. Plaquing is present on the left without significant flow-limiting stenosis. Atheromatous pl aque is present on the right without significant flow-limiting stenosis. Atheromatous plaquing is pre sent bilaterally but appears less significantly narrowed than ultrasound findings suggest. Cervical of [place]: Vertebral basilar system appears normal. Posterior cerebral vasculature is unrema rkable. Internal carotid arteries bifurcate normally into A1 and M1 segments. A2 segments are normal. The anterior communicating artery is patent. Posterior communicating arteries are not clearly identi fied IMPRESSION: 1. No flow-limiting stenosis bilateral carotid bifurcations. 2. Normal [place] of [place]
== END | disposition home or self-care (01) ==
LOC: RADCTMAIN 07:22
PROVIDERS: ATTEND Psychiatry & Neurology Neurology
DX: R93.89 Abnormal findings on diagnostic imaging of other specified body structures (principal); R51.9 Headache, unspecified; I65.29 Occlusion and stenosis of unspecified carotid artery; R41.82 Altered mental status, unspecified; E11.9 Type 2 diabetes mellitus without complications
CPT/HCPCS: 82565; 84520; 70496; 70498; 36415; Q9967

== ENCOUNTER → 2020-06-19 | Outpatient (CLI) | payer MEDICARE, OTHER ==
--- NOTE | 2020-06-19 15:06 | CT ---
EXAMINATION TYPE: CT thoracic spine wo con DATE OF EXAM: 06/19/2020 COMPARISON: None. HISTORY: thoracic pain CT DLP: 2299 mGycm Automated exposure control for dose reduction was used. FINDINGS: There is a shaped scoliosis in the thoracic spine. Spine is somewhat straightened on sagittal images. No significant spondylolisthesis. Vertebral body and disc space heights are well-maintained. Mild-to -moderate multilevel anterior and lateral spurring. Spinal canal grossly preserved. Evidence of prior surgical change right humeral head. There is prior surgical change throughout the c ervical spine partially imaged. Paraspinal muscle bulk is fairly well preserved. Review of axial imag es shows no suspicious abnormality. Coronary artery calcification is present in the LAD distribution which is noted marker for underlying coronary artery disease. IMPRESSION: As above.
== END | disposition home or self-care (01) ==
LOC: RADCTMAIN 14:14
PROVIDERS: ATTEND Psychiatry & Neurology Neurology
DX: M41.84 Other forms of scoliosis, thoracic region (principal); M43.8X4 Other specified deforming dorsopathies, thoracic region
CPT/HCPCS: 72128

== ENCOUNTER → 2020-10-04 | Outpatient (CLI) | payer MEDICARE, OTHER ==
--- NOTE | 2020-10-04 08:56 | XR ---
EXAMINATION TYPE: XR Hip Complete LT DATE OF EXAM: 10/04/2020 COMPARISON: NONE HISTORY: Pain TECHNIQUE: 2 views submitted FINDINGS: There is no evidence of erosive change or acute fracture. Moderate concentric narrowing the joint spa ce with hypertrophic change of the acetabulum. IMPRESSION: 1. Arthropathy correlate for femoral acetabular impingement.
== END | disposition home or self-care (01) ==
LOC: RADXRMAIN 07:59
PROVIDERS: ATTEND Internal Medicine
DX: M16.12 Unilateral primary osteoarthritis, left hip (principal)
CPT/HCPCS: 73502

== ENCOUNTER → 2020-10-04 | Outpatient (CLI) | payer MEDICARE, OTHER ==
[~2020-10-04] MED LIST changes: -DEXAMETHASONE SOD PHOSPHATE 10 MG/ML 1 ML VIAL IV ONE; -HYDROmorphone 0.5 MG/0.5 ML SYRINGE IVP PRN; -LACTATED RINGERS 1,000 ML IV SCH; -LIDOCAINE 1% INJ 10MG/ML (20 ML MDV) ONE; -MIDAZOLAM 2 MG/2 ML VIAL IV PRN; -MIDAZOLAM 2 MG/2 ML VIAL ONE; -ONDANSETRON 4 MG/2 ML VIAL IVP ONE; -PROPOFOL 10 MG/ML 20 ML VIAL IV ONE; +REGADENOSON 0.4 MG/5 ML SYRINGE IV PRN; -ROPIVACAINE 5 MG/ML 30 ML VIAL ONE; -SCOPOLAMINE 1.5MG/72HR PATCH TRANSDERM ONE; -fentaNYL (PF) 50 MCG/ML 2 ML AMP ONE
--- NOTE | 2020-10-04 11:01 | NM ---
EXAMINATION TYPE: NM stress lexiscan cardiolite DATE OF EXAM: 10/04/2020 COMPARISON: NONE HISTORY: Shortness of breath TECHNIQUE: After the intravenous administration of 10.20 mCi Tc 99m Sestamibi - Cardiolite resting S PECT images acquired 45 minutes post injection. The patient received 0.4mg Lexiscan, 25.1 mCi Tc 99m Sestamibi - Stress images obtained [address] injection FINDINGS: Review of stress and rest SPECT images demonstrates reduced uptake involving the inferior lateral edward cardium on stress images was felt to be most likely artifactual.. Gated analysis shows normal wall m otion with an estimated left ventricular ejection fraction of 73 %. IMPRESSION: 1. Reduced uptake on the inferior lateral wall the myocardium on stress images is felt to be most lik marycruz artifactual but should be correlated clinically for confirmation. 2. Ejection fraction of 73%
--- NOTE | 2020-10-04 11:28 | EST ---
EXERCISE STRESS AGE: 60 SEX: Male HT: 74" WT: 257 pounds PROTOCOL: Lexiscan Cardiolite STAGE: DURATION OF EXERCISE: HEART RATE REST: 84 BLOOD PRESSURE REST: 92/67 MAXIMUM HEART RATE ACHIEVED: 97 MAXIMUM BLOOD PRESSURE: 104/68 85% MPHR: 135 100% MPHR: 159 METS: INDICATIONS: CLINICAL INFORMATION: Baseline rhythm is sinus mechanism, rate of 84, normal axis and intervals, poor R progression. Baseline blood pressure 92/67 mmHg. Patient received an injection of Lexiscan. Electrocardiograph monitoring revealed no evidence of diagnostic ischemic ST deviation. Cardiolite was injected per protocol. CONCLUSION: 1. Nondiagnostic electrocardiograph stress testing. 2. Nuclear images will be reported separately. MMODL / IJN: [id number] /
== END | disposition home or self-care (01) ==
LOC: RADNMMAIN 07:48
PROVIDERS: ATTEND Internal Medicine Interventional Cardiology
DX: R06.02 Shortness of breath (principal)
CPT/HCPCS: 93017; 78452; A9500; J2785; 73502

== ENCOUNTER 2020-11-21 13:46 | Observation (INO) | payer MEDICARE, OTHER ==
[2020-11-21] MEDS ORDERED: ASPIRIN 81 MG PO STA (14:34)
[2020-11-21] MEDS ORDERED: NITROGLYCERIN OINT 1 INCH/GM PACKET TOPICAL STA (14:34)
--- NOTE | 2020-11-21 14:38 | ED ---
General Adult HPI - General Chief complaint: Chest Pain Stated complaint: Chest pain Time Seen by Provider: 11/21/20 14:13 Source: patient, RN notes reviewed Mode of arrival: ambulatory Limitations: no limitations - History of Present Illness Initial comments: Patient is a pleasant [age]-year-old male presenting to the emergency Department with complaints of chest discomfort. Onset of symptoms was several days ago. Symptoms were somewhat worse today. Discomfort is currently 5 or 6/10. He should does have some associated dyspnea. No nausea or diaphoresis. Patient does have history of similar symptoms previously with previous cardiac disease. Patient is unclear if symptoms worsen with exertion. - Related Data Home Medications Medication Instructions Recorded Confirmed Albuterol Sulfate [Proair Hfa] 1 - 2 puff INHALATION RT-Q4H PRN 11/18/16 08/17/19 Atenolol [Tenormin] 100 mg PO QAM 11/18/16 08/17/19 Dapagliflozin Propanediol [Farxiga] 10 mg PO DAILY 11/18/16 08/22/19 Pioglitazone [Actos] 30 mg PO DAILY 11/18/16 08/17/19 [place]-3 Fatty Acids [[place]-3] 1,000 mg PO DAILY 03/02/17 08/17/19 hydroCHLOROthiazide [Hydrodiuril] 25 mg PO DAILY 03/02/17 08/17/19 Atorvastatin [Lipitor] 10 mg PO HS 03/29/17 08/17/19 Isosorbide Mononitrate ER [Imdur] 60 mg PO QAM 03/29/17 08/22/19 Omeprazole 40 mg PO BID 03/29/17 08/17/19 Cider Vinegar [Apple Cider Vinegar] 300 mg PO DAILY 08/12/18 08/17/19 Cinnamon Bark [Cinnamon] 500 mg PO DAILY 08/12/18 08/17/19 Garlic 1 each PO DAILY 08/12/18 08/17/19 Ginkgo Biloba 325 mg PO DAILY 08/12/18 08/17/19 Ginseng 100 mg PO DAILY 08/12/18 08/17/19 Pregabalin [Lyrica] 300 mg PO TID 12/09/18 08/17/19 Budesonide-Formot 160-4.5 Mcg 2 puff INHALATION BID 08/17/19 08/17/19 [Symbicort 160-4.5 Mcg Inhaler] Cholecalciferol [Vitamin D3 (25 2,000 unit PO DAILY 08/17/19 08/17/19 Mcg = 1000 Iu)] Dulaglutide [Trulicity] 1.5 mg SQ MO 08/17/19 08/22/19 Gentamicin 0.1% Cream 1 applic TOPICAL Q7D 08/17/19 08/17/19 Hydrocodone/Acetaminophen [[place] 1 tab PO BID PRN 08/17/19 08/17/19 7.5-325] Hydrocortisone Cream 1 applic TOPICAL DAILY PRN 08/17/19 08/17/19 [Hydrocortisone 1% Cream] Triamcinolone 0.1% Cream [Kenalog 1 applicatio TOPICAL DAILY PRN 08/17/19 08/17/19 0.1% Cream] Previous Rx's Medication Instructions Recorded Aspirin 325 mg PO DAILY #14 tab 12/14/18 Allergies Allergy/AdvReac Type Severity Reaction Status Date / Time No Known Allergies Allergy Verified 11/21/20 13:54 Review of Systems ROS Statement: Those systems with pertinent positive or pertinent negative responses have been documented in the HPI. ROS Other: All systems not noted in ROS Statement are negative. Constitutional: Denies: fever Eyes: Denies: eye pain ENT: Denies: ear pain Respiratory: Denies: cough Cardiovascular: Reports: chest pain Endocrine: Denies: fatigue Gastrointestinal: Denies: abdominal pain Genitourinary: Denies: dysuria Musculoskeletal: Denies: back pain Skin: Denies: rash Neurological: Denies: weakness Past Medical History Past Medical History: Coronary Artery Disease (CAD), COPD, Diabetes Mellitus, GERD/Reflux, Hyperlipidemia, Hypertension, Myocardial Infarction (HI), Osteoarthritis (OA), Thyroid Disorder, Vascular Disorder Additional Past Medical History / Comment(s): carpel tunnel rt wrist,unsteady gait,Neuropathybil feet, ULCER [place] feet-healed, DDD, KIDNEY STONES, parkinson Last Myocardial Infarction Date:: 2006 History of Any Multi-Drug Resistant Organisms: MRSA Date of last positivie culture/infection: 2011 MDRO Source:: fingers Past Surgical History: Back Surgery, Heart Catheterization Additional Past Surgical History / Comment(s): Right shoulder arthroscopy-rota tor cuff repair, C4 pinning/fusion, R lower abdominal cyst removed, lithotripsy/basketing, colonoscopy. 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 Past Psychological History: No Psychological Hx Reported Smoking Status: Former smoker Past Alcohol Use History: Occasional Past Drug Use History: Marijuana - Past Family History Father History Unknown: Yes Additional Family Medical History / Comment(s): Pt was raised in foster care. Mother Family Medical History: Diabetes Mellitus, Myocardial Infarction (HI) Additional Family Medical History / Comment(s): Mother of a HI at the age of 42 yrs. General Exam Limitations: no limitations General appearance: alert, in no apparent distress Head exam: Present: normocephalic Eye exam: Present: normal appearance Neck exam: Present: normal inspection Respiratory exam: Present: normal lung sounds bilaterally, chest wall tenderness (Mild tenderness right sternal region) Cardiovascular Exam: Present: regular rate, normal rhythm Expanded Peripheral pulses: 2+: Radial (R), Radial (L), Dorsalis Pedis (R), Dorsalis Ped is (L) GI/Abdominal exam: Present: soft. Absent: tenderness Extremities exam: Present: normal inspection. Absent: pedal edema, calf tenderness Neurological exam: Present: alert Psychiatric exam: Present: normal affect, normal mood Skin exam: Present: normal color Course Vital Signs 11/21/20 11/21/20 13:50 14:50 Temperature 97.8 F Pulse Rate 87 89 Respiratory 18 20 Rate Blood Pressure 100/66 101/68 O2 Sat by Pulse 98 94 L Oximetry EKG Findings - EKG Comments: EKG Findings:: Normal sinus rhythm with a rate of 89. CO 158. QRS 92. QT 360. QTC 438. Normal axis. Normal QRS. No acute ST change. Medical Decision Making - Medical Decision Making Patient reevaluated and resting comfortably in bed. Patient updated on results and plan. Case was discussed with Dr. Richardson, who will admit his patient. - Lab Data Result diagrams: 11/21/20 14:37 11/21/20 14:37 Lab Results 11/21/20 11/21/20 11/21/20 Range/Units 14:37 14:37 14:37 WBC 8.3 (3.8-10.6) k/uL RBC 5.38 (4.30-5.90) m/uL Hgb 15.1 (13.0-17.5) gm/dL Hct 45.0 (39.0-53.0) % MCV 83.7 (80.0-100.0) fL MCH 28.1 (25.0-35.0) pg MCHC 33.5 (31.0-37.0) g/dL RDW 15.4 (11.5-15.5) % Plt Count 279 (150-450) k/uL MPV 7.1 Neutrophils % 75 % Lymphocytes % 14 % Monocytes % 7 % Eosinophils % 3 % Basophils % 0 % Neutrophils # 6.2 (1.3-7.7) k/uL Lymphocytes # 1.2 (1.0-4.8) k/uL Monocytes # 0.6 (0-1.0) k/uL Eosinophils # 0.2 (0-0.7) k/uL Basophils # 0.0 (0-0.2) k/uL PT 10.4 (9.0-12.0) sec INR 1.0 (<1.2) APTT 24.7 (22.0-30.0) sec D-Dimer 0.45 (<0.60) mg/L FEU Sodium 138 (137-145) mmol/L Potassium 4.8 (3.5-5.1) mmol/L Chloride 104 (98-107) mmol/L Carbon Dioxide 25 (22-30) mmol/L Anion Gap 9 mmol/L BUN 17 (9-20) mg/dL Creatinine 1.16 (0.66-1.25) mg/dL Est GFR (CKD-EPI)AfAm 79 (>60 ml/min/1.73 sqM) Est GFR (CKD-EPI)NonAf 68 (>60 ml/min/1.73 sqM) Glucose 131 H (74-99) mg/dL Calcium 9.3 (8.4-10.2) mg/dL Magnesium 2.3 (1.6-2.3) mg/dL Total Bilirubin 0.4 (0.2-1.3) mg/dL AST 30 (17-59) U/L ALT 20 (4-49) U/L Alkaline Phosphatase 96 (38-126) U/L Troponin I (0.000-0.034) ng/mL Total Protein 6.6 (6.3-8.2) g/dL Albumin 4.1 (3.5-5.0) g/dL 11/21/20 Range/Units 14:37 WBC (3.8-10.6) k/uL RBC (4.30-5.90) m/uL Hgb (13.0-17.5) gm/dL Hct (39.0-53.0) % MCV (80.0-100.0) fL MCH (25.0-35.0) pg MCHC (31.0-37.0) g/dL RDW (11.5-15.5) % Plt Count (150-450) k/uL MPV Neutrophils % % Lymphocytes % % Monocytes % % Eosinophils % % Basophils % % Neutrophils # (1.3-7.7) k/uL Lymphocytes # (1.0-4.8) k/uL Monocytes # (0-1.0) k/uL Eosinophils # (0-0.7) k/uL Basophils # (0-0.2) k/uL PT (9.0-12.0) sec INR (<1.2) APTT (22.0-30.0) sec D-Dimer (<0.60) mg/L FEU Sodium (137-145) mmol/L Potassium (3.5-5.1) mmol/L Chloride (98-107) mmol/L Carbon Dioxide (22-30) mmol/L Anion Gap mmol/L BUN (9-20) mg/dL Creatinine (0.66-1.25) mg/dL Est GFR (CKD-EPI)AfAm (>60 ml/min/1.73 sqM) Est GFR (CKD-EPI)NonAf (>60 ml/min/1.73 sqM) Glucose (74-99) mg/dL Calcium (8.4-10.2) mg/dL Magnesium (1.6-2.3) mg/dL Total Bilirubin (0.2-1.3) mg/dL AST (17-59) U/L ALT (4-49) U/L Alkaline Phosphatase (38-126) U/L Troponin I <0.012 (0.000-0.034) ng/mL Total Protein (6.3-8.2) g/dL Albumin (3.5-5.0) g/dL - Radiology Data Radiology results: image reviewed (Chest x-ray reveals no acute process) Disposition Clinical Impression: Chest pain Disposition: ADMITTED IP TO THIS HOSP Is patient prescribed a controlled substance at d/c from ED?: No Referrals: Tan Richardson MD [Primary Care Provider] - 1-2 days Decision Time: 15:13
[2020-11-21 14:48] LABS: Basophils % (A) 0 %; Eosinophils # (A) 0.2 k/uL (0-0.7); Eosinophils % (A) 3 %; HGB 15.1 gm/dL (13.0-17.5); Lymphocytes # (A) 1.2 k/uL (1.0-4.8); Lymphocytes % (A) 14 %; MCH 28.1 pg (25.0-35.0); MCHC 33.5 g/dL (31.0-37.0); MCV 83.7 fL (80.0-100.0); Mean Platelet Volume 7.1; Monocytes # (A) 0.6 k/uL (0-1.0); Monocytes % (A) 7 %; Neutrophils # (A) 6.2 k/uL (1.3-7.7); Neutrophils % (A) 75 %; Platelet Count 279 k/uL (150-450); RBC 5.38 m/uL (4.30-5.90); RDW 15.4 % (11.5-15.5); WBC 8.3 k/uL (3.8-10.6)
[2020-11-21 14:57] LABS: Albumin 4.1 g/dL (3.5-5.0); Calcium 9.3 mg/dL (8.4-10.2); Magnesium 2.3 mg/dL (1.6-2.3); Potassium 4.8 mmol/L (3.5-5.1); Total Bilirubin 0.4 mg/dL (0.2-1.3); Total Protein 6.6 g/dL (6.3-8.2)
[2020-11-21 15:00] LABS: D-Dimer 0.45 mg/L FEU (<0.60); Partial Thromboplastin Time 24.7 sec (22.0-30.0); Prothrombin Time 10.4 sec (9.0-12.0)
--- NOTE | 2020-11-21 15:03 | XR ---
EXAMINATION TYPE: XR chest 2V DATE OF EXAM: 11/21/2020 COMPARISON: Chest x-ray 03/29/2017 HISTORY: Chest pain TECHNIQUE: Frontal and lateral views of the chest are obtained. FINDINGS: Exam is expiratory and the patient is rotated. Heart size may be accentuated by technique but is likely stable. Postop change noted to the cervical spine. No evident airspace disease, pneumot horax, or pleural effusion. Right hemidiaphragm mildly elevated as on prior exam. There are overlying leads. IMPRESSION: Expiratory rotated exam, no acute abnormalities evident
[2020-11-21] MEDS ORDERED: NITROGLYCERIN SL TABS 0.4 MG TAB SUBLINGUAL PRN ×2 (15:13→17:19)
[2020-11-21] MEDS ORDERED: PREGABALIN 100 MG CAP PO PRN (17:19)
[2020-11-21] MEDS ORDERED: ALBUTEROL HFA INHALER INHALATION PRN (17:19)
[2020-11-21] MEDS ORDERED: HYDROcodone/APAP 7.5-325MG 1 EACH TAB PO PRN (17:19)
[2020-11-21] MEDS ORDERED: NALOXONE 0.4 MG/ML 1 ML VIAL IV PRN (17:19)
[2020-11-21] MEDS ORDERED: HYDROCORTISONE 1% CREAM 30 GM TUBE TOPICAL PRN (17:19)
[2020-11-21] MEDS ORDERED: TRIAMCINOLONE 0.1% CREAM 80 GM TUBE TOPICAL PRN (17:19)
[2020-11-21 20:07] LABS: Glucose,Whole Blood 123 mg/dL (75-99)
[2020-11-21] MEDS ORDERED: ATORVASTATIN 20 MG TAB PO SCH (21:00)
[2020-11-21] MEDS: NITROGLYCERIN OINT 1 INCH/GM PACKET TOPICAL SCH (21:10)
[2020-11-21] MEDS: PANTOPRAZOLE 40 MG TABLET PO SCH (21:12)
[2020-11-21] MEDS: AMOXIC-POT CLAV 875-125MG 1 EACH TAB PO SCH (21:12)
[2020-11-21] MEDS: CARBIDOPA-LEVODOPA 10-100 MG 1 EACH TAB PO SCH (21:13)
[2020-11-22] MEDS: NITROGLYCERIN OINT 1 INCH/GM PACKET TOPICAL SCH ×2 (00:24→05:37)
[2020-11-22 01:48] VITALS: TEMP 98.2
[2020-11-22] MEDS ORDERED: LEVOTHYROXINE 25 MCG TAB PO SCH (06:30)
[2020-11-22 07:06] LABS: Glucose,Whole Blood 117 mg/dL (75-99)
[2020-11-22] MEDS: PANTOPRAZOLE 40 MG TABLET PO SCH (07:38)
[2020-11-22] MEDS: ISOSORBIDE MONONITRATE ER 60 MG TAB.ER.24H PO SCH ×2 (07:38→07:41)
[2020-11-22] MEDS: AMOXIC-POT CLAV 875-125MG 1 EACH TAB PO SCH (07:39)
[2020-11-22 07:50] VITALS: BP 102/62; PULSE 74
[2020-11-22] MEDS ORDERED: SYMBICORT 160-4.5 MCG INHALER INHALATION SCH (08:00)
[2020-11-22 08:17] VITALS: RESP 17
[2020-11-22] MEDS: CARBIDOPA-LEVODOPA 10-100 MG 1 EACH TAB PO SCH (08:40)
[2020-11-22] MEDS ORDERED: FUROSEMIDE 40 MG TAB PO SCH (09:00)
[2020-11-22] MEDS ORDERED: atenoloL 50 MG TAB PO SCH (09:00)
[2020-11-22] MEDS ORDERED: NON FORMULARY DRUG (Dapagliflozin Propanediol [Farxiga] 5 MG Tablet) PO SCH (09:00)
[2020-11-22] MEDS ORDERED: ASPIRIN 81 MG PO SCH (09:00)
[2020-11-22] MEDS ORDERED: NON FORMULARY DRUG (Omega-3 Fatty Acids [Omega-3] 1,000 MG Capsule) PO SCH (09:00)
[2020-11-22] MEDS ORDERED: POTASSIUM CHLORIDE ER 10 MEQ TAB.ER.PRT PO SCH (09:00)
[2020-11-22] MEDS ORDERED: ASPIRIN 325 MG TAB PO SCH ×2 (09:00)
[2020-11-22 09:26] LABS: Chol/HDL Ratio 4.13; LDL Cholesterol,Calculated 52.6 mg/dL (0.0-131.0); VLDL Calculation 22.4 mg/dL (5.00-40.00)
--- NOTE | 2020-11-22 09:28 | CONS ---
CONSULTATION ATTENDING PHYSICIAN: Dr. Richardson HISTORY OF PRESENT ILLNESS: Mr. Queen is a 60-year-old male who carries the diagnosis of coronary artery disease, history of hypertension, diabetes mellitus, hyperlipidemia, who presented with symptoms of chest discomfort. The discomfort started about 2 days ago, right-sided, constant. Discomfort was not exertional in pattern. He felt dyspneic with it and because of that came into the emergency room. At the time of my evaluation, he is pain free. The patient follows by Dr. Westbrook in [place] regarding his cardiac status. He has underwent a prior cardiac workup including cardiac catheterization in 2016 according to him and was told that he has obstructive disease, but did not require percutaneous revascularization. He had a prior myocardial infarction according to him, although details of that are not available to me. The patient has chronic dyspnea on exertion. He denies any dizziness or palpitation. He has no clear PND nor orthopnea. He has occasional peripheral edema. He is scheduled to be seen by his dependency director in about 10 days. He underwent myocardial perfusion imaging on the 04 October and found to have an inferolateral wall defect, most likely representing soft tissue attenuation with preserved systolic function at that time. His coronary risk factors are remarkable for remote history of smoking. He is diabetic hyperlipidemic and hypertensive. MEDICATIONS: His medications include aspirin, atenolol 100 mg daily, Lipitor 20 mg daily, Symbicort, albuterol, Trulicity, isosorbide mononitrate 60 mg daily, Lyrica, Sinemet, Farxiga, Lasix 40 mg daily, Synthroid. REVIEW OF SYSTEMS: RESPIRATORY SYSTEM: History of chronic obstructive pulmonary disease. He has occasional cough. GI SYSTEM: No recent GI bleeding. No peptic ulcer disease. History of reflux. SYSTEM: No dysuria or hematuria. NERVOUS SYSTEM: No history of stroke or seizure. PHYSICAL EXAMINATION: GENERAL: A 60-year-old male, alert, oriented, in no apparent distress, obese. VITAL SIGNS: Blood pressure 102/60 with a heart rate in the 70s. HEAD: Normocephalic. Eyes sclerae anicteric. NECK: Good carotid upstroke. No bruits, no jugular venous distention. LUNGS: Clear to auscultation. HEART: Regular rate and rhythm S1, S2. No S3. No S4. No murmur or rub. ABDOMEN: Soft, nontender, positive bowel sounds, no organomegaly. EXTREMITIES: No edema. Intact pulses. CHEST WALL: With reproducible tenderness on the right side mimicking his presenting symptoms. LAB DATA: Lab data revealed troponin less than 0.012 for 3 samples. NT proBNP of 174. BUN and creatinine 17, 1.16. Hemoglobin of 15.1. His EKG revealed a sinus mechanism, normal axis and intervals. No acute ST-segment changes. His chest x-ray shows no acute infiltrate. IMPRESSION: 1. Chest discomfort, right-sided, appears to be musculoskeletal in etiology. No clear evidence to suggest acute coronary syndrome. Patient had a recent myocardial perfusion imaging that revealed an inferolateral wall defect most likely representing soft tissue attenuation. 2. History of coronary artery disease according to the patient, details not available. 3. Hypertension. 4. Hyperlipidemia. 5. Diabetes mellitus. 6. History of chronic tobacco use in the past with history of chronic obstructive lung disease. RECOMMENDATIONS: From the cardiac standpoint, I will continue present therapy. The patient should be able to be discharged home soon and follow up with his primary dependency director to undergo further workup and evaluation. Thank you for this consult. MMODL / IJN: [id number] /
--- NOTE | 2020-11-22 10:59 | P.HPIM ---
History of Present Illness H&P Date: 11/21/20 Bob Queen, is a 60-year-old male who presented to [facility] emergency room with a chief complaint of chest pain, patient describes a pressure sensation in the midsternal area that started several days ago but has been worsening in the last 24 hours, patient had also some occasional shortness of breath otherwise he denies any radiation of the pain there is no nausea or vomiting no diaphoresis . He was evaluated in the emergency room, vital examination on presentation revealed a temperature of 97.8 pulse 87 respiration 18 blood pressure 100/66 pulse ox 98% on room air. Laboratory data revealed a white blood count of 8.3 hemoglobin 15.1 platelet count 279 d-dimer 0.45 troponin level less than 0.012 BUN 17 creatinine 1.16 COVID-19 testing was negative. EKG was done on admission and revealed normal sinus rhythm with borderline left atrial enlargement, no acute ischemia, chest x-ray did not reveal any acute abnormality patient was admitted to telemetry floor for further evaluation and cardiology consultation was requested serial troponin level were ordered. Past Medical History Past Medical History: Coronary Artery Disease (CAD), COPD, Diabetes Mellitus, GERD/Reflux, Hyperlipidemia, Hypertension, Myocardial Infarction (MT), Osteoarthritis (OA), Thyroid Disorder, Vascular Disorder Additional Past Medical History / Comment(s): carpel tunnel rt wrist,unsteady gait,Neuropathybil feet, ULCER [place] feet-healed, DDD, KIDNEY STONES, parkinson Last Myocardial Infarction Date:: 2006 History of Any Multi-Drug Resistant Organisms: MRSA Date of last positivie culture/infection: 2011 MDRO Source:: fingers Past Surgical History: Back Surgery, Heart Catheterization Additional Past Surgical History / Comment(s): Right shoulder arthroscopy- rotator cuff repair, C4 pinning/fusion, R lower abdominal cyst removed, lithotripsy/basketing, colonoscopy. caridac cath at 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 Past Psychological History: No Psychological Hx Reported Smoking Status: Former smoker Past Alcohol Use History: Occasional Past Drug Use History: Marijuana - Past Family History Father History Unknown: Yes Additional Family Medical History / Comment(s): Pt was raised in foster care. Mother Family Medical History: Diabetes Mellitus, Myocardial Infarction (MT) Additional Family Medical History / Comment(s): Mother of a MT at the age of 42 yrs. Medications and Allergies Home Medications Medication Instructions Recorded Confirmed Type Albuterol Sulfate [Proair Hfa] 1 - 2 puff INHALATION RT-Q4H PRN 11/18/16 11/21/20 History Atenolol [Tenormin] 100 mg PO DAILY 11/18/16 11/21/20 History [place]-3 Fatty Acids [[place]-3] 1,000 mg PO DAILY 03/02/17 11/21/20 History Atorvastatin [Lipitor] 20 mg PO HS 03/29/17 11/21/20 History Omeprazole 40 mg PO BID 03/29/17 11/21/20 History Cider Vinegar [Apple Cider Vinegar] 900 mg PO DAILY 08/12/18 11/21/20 History Cinnamon Bark [Cinnamon] 1,000 mg PO DAILY 08/12/18 11/21/20 History Garlic 1 each PO DAILY 08/12/18 11/21/20 History Aspirin 325 mg PO DAILY #14 tab 12/14/18 11/21/20 Rx Budesonide-Formot 160-4.5 Mcg 2 puff INHALATION RT-DAILY 08/17/19 11/21/20 History [Symbicort 160-4.5 Mcg Inhaler] Dulaglutide [Trulicity] 1.5 mg SQ MO 08/17/19 11/21/20 History Hydrocodone/Acetaminophen [[place] 1 tab PO BID PRN 08/17/19 11/21/20 History 7.5-325] Triamcinolone 0.1% Cream [Kenalog 1 applicatio TOPICAL DAILY PRN 08/17/19 0 11/21/20 History 0.1% Cream] Amoxicillin/Potassium Clav 1 tab PO Q12HR 11/21/20 11/21/20 History [Augmentin 875-125 Tablet] Carbidopa-Levodopa 10-100 mg 1 tab PO TID 11/21/20 11/21/20 History [Sinemet 10-100 mg] Dapagliflozin Propanediol [Farxiga] 5 mg PO DAILY 11/21/20 11/21/20 History Dulaglutide [Trulicity] 1.5 mg SQ MO 11/21/20 11/21/20 History Ergocalciferol [Vitamin D2 (1250 1,250 mcg PO MO 11/21/20 11/21/20 History Mcg = 24668 Iu)] Furosemide [Lasix] 40 mg PO DAILY 11/21/20 11/21/20 History Hydrocortisone Cream 1 applic TOPICAL DAILY PRN 11/21/20 11/21/20 History [Hydrocortisone 2.5% Cream] Isosorbide Mononitrate ER [Imdur] 60 mg PO DAILY 11/21/20 11/21/20 History Levothyroxine Sodium [Synthroid] 25 mcg PO DAILY 11/21/20 11/21/20 History Naloxone HCl [Narcan] 1 spray NASAL ONCE PRN 11/21/20 11/21/20 History Nitroglycerin Sl Tabs [Nitrostat] 0.4 mg PO Q5M PRN 11/21/20 11/21/20 History Potassium Chloride ER [K-Dur 10] 10 meq PO DAILY 11/21/20 11/21/20 History Pregabalin [Lyrica] 100 mg PO TID PRN 11/21/20 11/21/20 History Allergies Allergy/AdvReac Type Severity Reaction Status Date / Time No Known Allergies Allergy Verified 11/21/20 16:09 Physical Exam Vitals: Vital Signs Temp Pulse Resp BP Pulse Ox 11/21/20 17:00 76 18 103/69 95 11/21/20 15:33 80 18 104/72 95 11/21/20 14:50 89 20 101/68 94 L 11/21/20 13:50 97.8 F 87 18 100/66 98 Intake and Output 11/21/20 11/21/20 11/21/20 06:59 14:59 22:59 Other: Weight 115.212 kg In general patient is alert and oriented ?-3 in no distress HEENT head normocephalic and atraumatic Neck is supple no JVD no goiter no lymphadenopathy no carotid bruit Chest examination is clear to auscultation no crackles no wheezing Cardiac exam reveals regular heart sounds S1 and S2 no gallops no murmurs Abdomen is soft nontender no organomegaly with normal bowel sounds Extremity exam reveals no edema no cyanosis or clubbing Neurological examination reveals no gross focal deficits Results CBC & Chem 7: 11/21/20 14:37 06/17/21 14:37 Labs: Abnormal Lab Results - Last 24 Hours (Table) 11/21/20 Range/Units 14:37 Glucose 131 H (74-99) mg/dL Assessment and Plan Plan: Episodes of chest pain on and off for the last several days. Underlying history of hypertension Underlying history of hyperlipidemia Underlying history of hypothyroidism Underlying history of ovz-cqovxey-wdsxhghon diabetes mellitus Underlying history of chronic back pain Underlying history of Parkinson disease Underlying history of COPD History of peripheral vascular disease with right carotid artery stenosis. At this time patient is admitted to telemetry floor serial cardiac enzymes are ordered Home medications reviewed and reordered Cardiology consultation requested Will follow closely
--- NOTE | 2020-11-22 11:23 | P.DS ---
Providers Date of admission: 11/21/20 15:13 Expected date of discharge: 11/22/20 Attending physician: Tan Richardson Consults: 11/21/20 15:13 Consult Physician Urgent Consulting Provider: Abrahan Serrano Consult Reason/Comments: cp Do you want consulting provider notified?: Yes Primary care physician: Tan Richardson [facility] Course: Discharge diagnosis Episodes of chest pain on and off for the last several days. Underlying history of hypertension Underlying history of hyperlipidemia Underlying history of hypothyroidism Underlying history of erl-qiiyief-blctdctrv diabetes mellitus Underlying history of chronic back pain Underlying history of Parkinson disease Underlying history of COPD History of peripheral vascular disease with right carotid artery stenosis. Troponins negative 3 D-dimer negative Hospital course Bob Queen, is a 60-year-old male who presented to [facility] emergency room with a chief complaint of chest pain, patient describes a pressure sensation in the midsternal area that started several days ago but has been worsening in the last 24 hours, patient had also some occasional shortness of breath otherwise he denies any radiation of the pain there is no nausea or vomiting no diaphoresis . He was evaluated in the emergency room, vital examination on presentation revealed a temperature of 97.8 pulse 87 respiration 18 blood pressure 100/66 pulse ox 98% on room air. Laboratory data revealed a white blood count of 8.3 hemoglobin 15.1 platelet count 279 d-dimer 0.45 troponin level less than 0.012 BUN 17 creatinine 1.16 COVID-19 testing was negative. EKG was done on admission and revealed normal sinus rhythm with borderline left atrial enlargement, no acute ischemia, chest x-ray did not reveal any acute abnormality patient was admitted to telemetry floor for further evaluation and cardiology consultation was requested serial troponin level were ordered. On 11/22/2020 patient is alert and oriented 3. Troponins negative 3. Patient was evaluated by cardiology services. Per cardiology right-sided chest pain appears to be musculoskeletal in etiology neuro no clear evidence to suggest acute coronary syndrome. Patient recently had myocardial perfusion imaging that revealed an inferolateral wall defect most likely representing soft tissue attenuation. From cardiology standpoint patient to continue present therapy and cleared for discharge patient to follow-up with his primary stitchdown toe former out of [place] for further workup. At this time patient denies chest pain or shortness of breath. Patient denies nausea vomiting or diarrhea. Patient denies any urinary burning or frequency Patient Condition at Discharge: Stable Plan - Discharge Summary Discharge Rx Participant: Yes New Discharge Prescriptions: Continue Albuterol Sulfate [Proair Hfa] 1 - 2 puff INHALATION RT-Q4H PRN PRN Reason: Shortness Of Breath Atenolol [Tenormin] 100 mg PO DAILY [place]-3 Fatty Acids [[place]-3] 1,000 mg PO DAILY Atorvastatin [Lipitor] 20 mg PO HS Omeprazole 40 mg PO BID Garlic 1 each PO DAILY Cinnamon Bark [Cinnamon] 1,000 mg PO DAILY Cider Vinegar [Apple Cider Vinegar] 900 mg PO DAILY Aspirin 325 mg PO DAILY #14 tab Triamcinolone 0.1% Cream [Kenalog 0.1% Cream] 1 applicatio TOPICAL DAILY PRN PRN Reason: Rash Budesonide-Formot 160-4.5 Mcg [Symbicort 160-4.5 Mcg Inhaler] 2 puff INHALATION RT-DAILY Hydrocodone/Acetaminophen [[place] 7.5-325] 1 tab PO BID PRN PRN Reason: Pain Dulaglutide [Trulicity] 1.5 mg SQ MO Hydrocortisone Cream [Hydrocortisone 2.5% Cream] 1 applic TOPICAL DAILY PRN PRN Reason: Rash Isosorbide Mononitrate ER [Imdur] 60 mg PO DAILY Carbidopa-Levodopa 10-100 mg [Sinemet 10-100 mg] 1 tab PO TID Dapagliflozin Propanediol [Farxiga] 5 mg PO DAILY Nitroglycerin Sl Tabs [Nitrostat] 0.4 mg PO Q5M PRN PRN Reason: Chest Pain Potassium Chloride ER [K-Dur 10] 10 meq PO DAILY Dulaglutide [Trulicity] 1.5 mg SQ MO Pregabalin [Lyrica] 100 mg PO TID PRN PRN Reason: NEUROPATHY Ergocalciferol [Vitamin D2 (1250 Mcg = 81792 Iu)] 1,250 mcg PO MO Furosemide [Lasix] 40 mg PO DAILY Levothyroxine Sodium [Synthroid] 25 mcg PO DAILY Naloxone HCl [Narcan] 1 spray NASAL ONCE PRN PRN Reason: OVERDOSE Amoxicillin/Potassium Clav [Augmentin 875-125 Tablet] 1 tab PO Q12HR Discharge Medication List Albuterol Sulfate [Proair Hfa] 1 - 2 puff INHALATION RT-Q4H PRN 06/14/17 [History] Atenolol [Tenormin] 100 mg PO DAILY 11/18/16 [History] [place]-3 Fatty Acids [[place]-3] 1,000 mg PO DAILY 03/02/17 [History] Atorvastatin [Lipitor] 20 mg PO HS 03/29/17 [History] Omeprazole 40 mg PO BID 03/29/17 [History] Cider Vinegar [Apple Cider Vinegar] 900 mg PO DAILY 08/12/18 [History] Cinnamon Bark [Cinnamon] 1,000 mg PO DAILY 08/12/18 [History] Garlic 1 each PO DAILY 08/12/18 [History] Aspirin 325 mg PO DAILY #14 tab 12/14/18 [Rx] Budesonide-Formot 160-4.5 Mcg [Symbicort 160-4.5 Mcg Inhaler] 2 puff INHALATION RT-DAILY 08/17/19 [History] Dulaglutide [Trulicity] 1.5 mg SQ MO 08/17/19 [History] Hydrocodone/Acetaminophen [[place] 7.5-325] 1 tab PO BID PRN 08/17/19 [History] Triamcinolone 0.1% Cream [Kenalog 0.1% Cream] 1 applicatio TOPICAL DAILY PRN 08/17/19 [History] Amoxicillin/Potassium Clav [Augmentin 875-125 Tablet] 1 tab PO Q12HR 11/21/20 [History] Carbidopa-Levodopa 10-100 mg [Sinemet 10-100 mg] 1 tab PO TID 11/21/20 [History] Dapagliflozin Propanediol [Farxiga] 5 mg PO DAILY 11/21/20 [History] Dulaglutide [Trulicity] 1.5 mg SQ MO 11/21/20 [History] Ergocalciferol [Vitamin D2 (1250 Mcg = 02643 Iu)] 1,250 mcg PO MO 11/21/20 [History] Furosemide [Lasix] 40 mg PO DAILY 11/21/20 [History] Hydrocortisone Cream [Hydrocortisone 2.5% Cream] 1 applic TOPICAL DAILY PRN 11/21/20 [History] Isosorbide Mononitrate ER [Imdur] 60 mg PO DAILY 11/21/20 [History] Levothyroxine Sodium [Synthroid] 25 mcg PO DAILY 11/21/20 [History] Naloxone HCl [Narcan] 1 spray NASAL ONCE PRN 11/21/20 [History] Nitroglycerin Sl Tabs [Nitrostat] 0.4 mg PO Q5M PRN 11/21/20 [History] Potassium Chloride ER [K-Dur 10] 10 meq PO DAILY 11/21/20 [History] Pregabalin [Lyrica] 100 mg PO TID PRN 11/21/20 [History] Follow up Appointment(s)/Referral(s): Tan Richardson MD [Primary Care Provider] - 1-2 days Activity/Diet/Wound Care/Special Instructions: Patient to follow-up with his stitchdown toe former Dr. Crawford in [place] Discharge Disposition: HOME SELF-CARE
== END 2020-11-22 12:25 | disposition home or self-care (01) ==
LOC: EC 13:46 → 6NMEDSUR 15:13
PROVIDERS: ADMIT Internal Medicine; ATTEND Internal Medicine
DX: R07.89 Other chest pain (principal); I11.9 Hypertensive heart disease without heart failure; E78.5 Hyperlipidemia, unspecified; E03.9 Hypothyroidism, unspecified; E11.51 Type 2 diabetes mellitus with diabetic peripheral angiopathy without gangrene; Z20.822 Contact with and (suspected) exposure to COVID-19; G20 Parkinson's disease; J44.9 Chronic obstructive pulmonary disease, unspecified; I25.10 Atherosclerotic heart disease of native coronary artery without angina pectoris; I25.2 Old myocardial infarction; K21.9 Gastro-esophageal reflux disease without esophagitis; G89.29 Other chronic pain; M54.9 Dorsalgia, unspecified; R26.81 Unsteadiness on feet; M19.90 Unspecified osteoarthritis, unspecified site; I65.21 Occlusion and stenosis of right carotid artery; Z79.51 Long term (current) use of inhaled steroids; Z79.82 Long term (current) use of aspirin; Z79.84 Long term (current) use of oral hypoglycemic drugs; Z79.890 Hormone replacement therapy; Z79.899 Other long term (current) drug therapy; Z16.24 Resistance to multiple antibiotics; Z87.442 Personal history of urinary calculi; Z87.891 Personal history of nicotine dependence; Z82.49 Family history of ischemic heart disease and other diseases of the circulatory system; Z83.3 Family history of diabetes mellitus
CPT/HCPCS: 99285; 36415; 94640; 93005; 85379; 83880; 80061; 80053; 83735; 84484; 85025; 85610; 85730; 87635; 71046; G0378 ×2

== ENCOUNTER → 2021-01-14 | Outpatient (CLI) | payer MEDICARE, OTHER ==
--- NOTE | 2021-01-14 09:52 | CT ---
EXAMINATION TYPE: CT lumbar spine wo con DATE OF EXAM: 01/14/2021 COMPARISON: None HISTORY: chronic low back pain CT DLP: 1759.7 mGycm CONTRAST: None TECHNIQUE: CT of the lumbar spine is performed on a spiral scan at 3 mm thick sections. Reconstructed images are performed in the coronal and sagittal planes. FINDINGS: T12-L1: No focal disc herniation or significant disc bulge is evident. No spinal canal stenosis or neural foraminal stenosis is present. L1-L2: Mild disc bulges anterior thecal sac contact. No spinal canal stenosis or neural foraminal ivan nosis is present. L2-L3: Broad-based disc bulge is mild anterior thecal sac compression. No spinal canal stenosis or ne ural foraminal stenosis is present. L3-L4: Broad-based disc bulge is mild to moderate anterior thecal sac compression. No AP spinal canal stenosis is present. Moderate right foraminal narrowing from disc bulging is present. L4-L5: Broad-based disc bulge has moderate anterior thecal sac compression. No AP spinal canal stenos is is present. Facet hypertrophy is present. There is moderate left and [id number] right forami nal narrowing L5-S1: No focal disc herniation or significant disc bulge is evident. No spinal canal stenosis or n eural foraminal stenosis is present Vertebral alignment appears normal. IMPRESSION: 1. Broad-based disc bulging L1-2 through L4-5. 2. Moderate Foraminal narrowing on the right at L3-4 and bilaterally at L4-5.
== END | disposition home or self-care (01) ==
LOC: RADCTMAIN 07:11
PROVIDERS: ATTEND Psychiatry & Neurology Neurology
DX: M51.26 Other intervertebral disc displacement, lumbar region (principal); M99.73 Connective tissue and disc stenosis of intervertebral foramina of lumbar region
CPT/HCPCS: 72131

== ENCOUNTER → 2021-09-24 | Outpatient (CLI) | payer MEDICARE, OTHER ==
[2021-09-24 21:54] LABS: ALT 31 U/L (10-49); AST 31 U/L (14-35); African American GFR (CKD) 69.1 (60.0-200.0); Albumin 4.1 g/dL (3.8-4.9); Albumin/Globulin Ratio 1.46 (1.60-3.17); Alkaline Phosphatase 96 U/L (41-126); BUN/Creat Ratio 15.31 Ratio (12.00-20.00); Blood Urea Nitrogen 19.6 mg/dL (9.0-27.0); Calcium 9.4 mg/dL (8.7-10.3); Carbon Dioxide 22.1 mmol/L (20.0-27.5); Chloride 105 mmol/L (96-109); Chol/HDL Ratio 4.23 Ratio; Globulin 2.8 g/dL (1.6-3.3); Glucose 119 mg/dL (70-110); LDL Cholesterol,Calculated 62.9 mg/dL (0.0-131.0); Non-African American GFR(CKD) 59.6 (60.0-200.0); Potassium 4.8 mmol/L (3.5-5.5); Sodium 142 mmol/L (135-145); Total Protein 6.9 g/dL (6.2-8.2)
== END | disposition home or self-care (01) ==
LOC: LABWHC1 11:05
PROVIDERS: ATTEND Internal Medicine Endocrinology, Diabetes & Metabolism
DX: E11.65 Type 2 diabetes mellitus with hyperglycemia (principal)
CPT/HCPCS: 36415; 80053; 80061; 83036; 84443

== ENCOUNTER 2021-12-22 18:07 | Observation (INO) | payer MEDICARE, OTHER ==
[2021-12-22] MEDS ORDERED: SODIUM CHLORIDE 0.9% 1,000 ML IV STA ×2 (19:54)
--- NOTE | 2021-12-22 20:53 | XR ---
EXAMINATION TYPE: XR chest 2V DATE OF EXAM: 12/22/2021 COMPARISON: 11/21/2020 HISTORY: Chest pain TECHNIQUE: 2 views FINDINGS: Heart is normal. Lungs are clear of infiltrate. No heart failure. There are no hilar masses . Bony thorax is intact. IMPRESSION: Normal chest. No change.
--- NOTE | 2021-12-22 21:03 | XR ---
EXAMINATION TYPE: XR KUB DATE OF EXAM: 12/22/2021 COMPARISON: NONE HISTORY: Abdominal pain TECHNIQUE: 2 views upright FINDINGS: There is no sign of intestinal obstruction or pneumoperitoneum. Fecal pattern is normal. Th ere is 8 mm calculus over the left kidney. Lung bases are clear of infiltrate. No evidence of abdomin al mass. IMPRESSION: Nonacute abdomen. There is probably a left renal calculus.
[2021-12-22 21:24] LABS: Albumin 4.1 g/dL (3.5-5.0); Calcium 9.7 mg/dL (8.4-10.2); Magnesium 2.2 mg/dL (1.6-2.3); Potassium 4.1 mmol/L (3.5-5.1); Total Bilirubin 0.5 mg/dL (0.2-1.3); Total Protein 6.7 g/dL (6.3-8.2)
[2021-12-22 21:25] LABS: Basophils % (A) 0 %; Eosinophils # (A) 0.1 k/uL (0-0.7); Eosinophils % (A) 1 %; HCT 48.1 % (39.0-53.0); HGB 15.6 gm/dL (13.0-17.5); Lymphocytes # (A) 0.8 k/uL (1.0-4.8); Lymphocytes % (A) 11 %; MCH 27.9 pg (25.0-35.0); MCHC 32.4 g/dL (31.0-37.0); MCV 86.3 fL (80.0-100.0); Mean Platelet Volume 7.2; Monocytes # (A) 0.5 k/uL (0-1.0); Monocytes % (A) 7 %; Neutrophils # (A) 6.3 k/uL (1.3-7.7); Neutrophils % (A) 79 %; Platelet Count 215 k/uL (150-450); RBC 5.57 m/uL (4.30-5.90)
--- NOTE | 2021-12-22 21:43 | ED ---
Nausea/Vomiting/Diarrhea HPI - General Chief complaint: Nausea/Vomiting/Diarrhea Stated complaint: abd pain, diarrhea Time Seen by Provider: 12/22/21 19:53 Source: patient, RN notes reviewed Mode of arrival: ambulatory Limitations: no limitations - History of Present Illness Initial comments: 61-year-old male presents with complains of generally feeling ill for the past 3-4 days no nausea vomiting but decreased oral intake diarrhea he complains of lower abdominal pain especially on the left he has what he states feels like the flu. No dysuria hematuria no overt fevers chills or sweats at this time. He does not recall getting into any food that may have been bad. Is up around anyone who has been ill. He does state he feels somewhat lightheaded when he gets up quickly. No other modifying factors at this time MD complaint: abdominal pain, other - Related Data Home Medications Medication Instructions Recorded Confirmed Albuterol Sulfate [Proair Hfa] 2 puff INHALATION RT-QID PRN 11/18/16 12/22/21 atenoloL [Tenormin] 100 mg PO DAILY 11/18/16 12/22/21 [place]-3 Fatty Acids [[place]-3] 2,000 mg PO DAILY 03/02/17 12/22/21 Atorvastatin [Lipitor] 20 mg PO DAILY 03/29/17 12/22/21 Omeprazole 40 mg PO BID 03/29/17 12/22/21 Cider Vinegar [Apple Cider Vinegar] 900 mg PO DAILY 08/12/18 12/22/21 Cinnamon Bark [Cinnamon] 1,000 mg PO DAILY 08/12/18 12/22/21 Garlic 1 tab PO DAILY 08/12/18 12/22/21 Budesonide-Formot 160-4.5 Mcg 2 puff INHALATION RT-BID 08/17/19 12/22/21 [Symbicort 160-4.5 Mcg Inhaler] Hydrocodone/Acetaminophen [[place] 1 tab PO BID PRN 08/17/19 12/22/21 7.5-325] Triamcinolone 0.1% Cream [Kenalog 1 applicatio TOPICAL DAILY PRN 08/17/19 12/22/21 0.1% Cream] Carbidopa-Levodopa 10-100 mg 1 tab PO TID 11/21/20 12/22/21 [Sinemet 10-100 mg] Dapagliflozin Propanediol [Farxiga] 5 mg PO DAILY 11/21/20 12/22/21 Dulaglutide [Trulicity] 1.5 mg SQ MO 11/21/20 12/22/21 Furosemide [Lasix] 40 mg PO DAILY 11/21/20 12/22/21 Levothyroxine Sodium [Synthroid] 25 mcg PO DAILY 11/21/20 12/22/21 Naloxone HCl [Narcan] 1 spray NASAL ONCE PRN 11/21/20 12/22/21 Nitroglycerin Sl Tabs [Nitrostat] 0.4 mg PO Q5M PRN 11/21/20 12/22/21 Potassium Chloride ER [K-Dur 10] 10 meq PO DAILY 11/21/20 12/22/21 Pregabalin [Lyrica] 100 mg PO TID PRN 11/21/20 12/22/21 Albuterol Nebulized [Ventolin 2.5 mg INHALATION RT-QID PRN 12/22/21 12/22/21 Nebulized] Diphenoxylate HCl/Atropine 1 tab PO DAILY PRN 12/22/21 12/22/21 [Lomotil 2.5-0.025 mg Tablet] Isosorbide Mononitrate ER [Imdur] 30 mg PO DAILY 12/22/21 12/22/21 Meloxicam [Mobic] 15 mg PO DAILY 12/22/21 12/22/21 Mupirocin 2% Oint [Bactroban 2% 1 applic TOPICAL DAILY 12/22/21 12/22/21 Oint] Previous Rx's Medication Instructions Recorded Aspirin 325 mg PO DAILY #14 tab 12/14/18 Allergies Allergy/AdvReac Type Severity Reaction Status Date / Time No Known Allergies Allergy Verified 12/22/21 21:35 Review of Systems ROS Statement: Those systems with pertinent positive or pertinent negative responses have been documented in the HPI. ROS Other: All systems not noted in ROS Statement are negative. Past Medical History Past Medical History: Coronary Artery Disease (CAD), COPD, Diabetes Mellitus, GERD/Reflux, Hyperlipidemia, Hypertension, Myocardial Infarction ([place]), Osteoarthritis (OA), Thyroid Disorder, Vascular Disorder Additional Past Medical History / Comment(s): carpel tunnel rt wrist,unsteady gait,Neuropathybil feet, ULCER francehska feet-healed, DDD, KIDNEY STONES, parkinson Last Myocardial Infarction Date:: 2006 History of Any Multi-Drug Resistant Organisms: MRSA Date of last positivie culture/infection: 2011 MDRO Source:: fingers Past Surgical History: Back Surgery, Heart Catheterization Additional Past Surgical History / Comment(s): Right shoulder arthroscopy- rotator cuff repair, C4 pinning/fusion, R lower abdominal cyst removed, lithotripsy/basketing, colonoscopy. 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 Past Psychological History: No Psychological Hx Reported Smoking Status: Former smoker Past Alcohol Use History: Occasional Past Drug Use History: Marijuana - Past Family History Father History Unknown: Yes Additional Family Medical History / Comment(s): Pt was raised in foster care. Mother Family Medical History: Diabetes Mellitus, Myocardial Infarction ([place]) Additional Family Medical History / Comment(s): Mother of a [place] at the age of 42 yrs. General Exam - General Exam Comments Initial Comments: This a well-developed well-nourished awake alert oriented times 4 male Limitations: no limitations General appearance: alert, anxious Head exam: Present: atraumatic, normocephalic, normal inspection Eye exam: Present: normal appearance, PERRL, EOMI. Absent: scleral icterus, conjunctival injection, periorbital swelling ENT exam: Present: mucous membranes dry Neck exam: Present: normal inspection. Absent: tenderness, meningismus, lymphadenopathy Respiratory exam: Present: normal lung sounds bilaterally. Absent: respiratory distress, wheezes, rales, rhonchi, stridor Cardiovascular Exam: Present: regular rate, normal rhythm, normal heart sounds. Absent: systolic murmur, diastolic murmur, rubs, gallop, clicks GI/Abdominal exam: Present: soft, tenderness (Lower quadrant tenderness palpation no overt guarding or rebound), normal bowel sounds. Absent: distended, guarding, rebound, rigid Rectal exam: Present: deferred Extremities exam: Present: normal inspection, full ROM, normal capillary refill. Absent: tenderness, pedal edema, joint swelling, calf tenderness Back exam: Present: normal inspection Neurological exam: Present: alert, oriented X3, CN II-XII intact Psychiatric exam: Present: normal affect, normal mood Skin exam: Present: warm, dry, intact, normal color. Absent: rash Course Vital Signs 12/22/21 12/22/21 12/22/21 19:12 20:30 21:30 Temperature 98.6 F 98.1 F Pulse Rate 88 80 78 Respiratory 22 16 20 Rate Blood Pressure 105/71 108/78 110/86 O2 Sat by Pulse 96 97 97 Oximetry 12/22/21 23:30 Temperature 98.1 F Pulse Rate 76 Respiratory 18 Rate Blood Pressure 116/83 O2 Sat by Pulse 98 Oximetry Medical Decision Making - Medical Decision Making The patient persists in having diarrhea and abdominal pain we did a long discussion with this patient will be admitted Dr. Richardson was contacted. Dr. Montes will be consulted in the morning. - Lab Data Result diagrams: 12/22/21 20:56 12/22/21 20:56 Lab Results 12/22/21 12/22/21 12/22/21 Range/Units 20:56 20:56 20:56 WBC 8.0 (3.8-10.6) k/uL RBC 5.57 (4.30-5.90) m/uL Hgb 15.6 (13.0-17.5) gm/dL Hct 48.1 (39.0-53.0) % MCV 86.3 (80.0-100.0) fL MCH 27.9 (25.0-35.0) pg MCHC 32.4 (31.0-37.0) g/dL RDW 15.0 (11.5-15.5) % Plt Count 215 (150-450) k/uL MPV 7.2 Neutrophils % 79 % Lymphocytes % 11 % Monocytes % 7 % Eosinophils % 1 % Basophils % 0 % Neutrophils # 6.3 (1.3-7.7) k/uL Lymphocytes # 0.8 L (1.0-4.8) k/uL Monocytes # 0.5 (0-1.0) k/uL Eosinophils # 0.1 (0-0.7) k/uL Basophils # 0.0 (0-0.2) k/uL Sodium 137 (137-145) mmol/L Potassium 4.1 (3.5-5.1) mmol/L Chloride 103 (98-107) mmol/L Carbon Dioxide 22 (22-30) mmol/L Anion Gap 12 mmol/L BUN 21 H (9-20) mg/dL Creatinine 1.39 H (0.66-1.25) mg/dL Est GFR (CKD-EPI)AfAm 63 (>60 ml/min/1.73 sqM) Est GFR (CKD-EPI)NonAf 54 (>60 ml/min/1.73 sqM) Glucose 107 H (74-99) mg/dL Plasma Lactic Acid Dk 1.2 (0.7-2.0) mmol/L Calcium 9.7 (8.4-10.2) mg/dL Magnesium 2.2 (1.6-2.3) mg/dL Total Bilirubin 0.5 (0.2-1.3) mg/dL AST 29 (17-59) U/L ALT 14 (4-49) U/L Alkaline Phosphatase 83 (38-126) U/L Creatine Kinase 70 (55-170) U/L Total Protein 6.7 (6.3-8.2) g/dL Albumin 4.1 (3.5-5.0) g/dL Lipase 179 (23-300) U/L Urine Color Urine Appearance (Clear) Urine pH (5.0-8.0) Ur Specific [place] (1.001-1.035) Urine Protein (Negative) Urine Glucose (UA) (Negative) Urine Ketones (Negative) Urine Blood (Negative) Urine Nitrite (Negative) Urine Bilirubin (Negative) Urine Urobilinogen (<2.0) mg/dL Ur Leukocyte Esterase (Negative) Coronavirus (PCR) (Not Detectd) Influenza Type A RNA (Not Detectd) Influenza Type B (PCR) (Not Detectd) 12/22/21 12/22/21 12/22/21 Range/Units 21:10 21:10 21:54 WBC (3.8-10.6) k/uL RBC (4.30-5.90) m/uL Hgb (13.0-17.5) gm/dL Hct (39.0-53.0) % MCV (80.0-100.0) fL MCH (25.0-35.0) pg MCHC (31.0-37.0) g/dL RDW (11.5-15.5) % Plt Count (150-450) k/uL MPV Neutrophils % % Lymphocytes % % Monocytes % % Eosinophils % % Basophils % % Neutrophils # (1.3-7.7) k/uL Lymphocytes # (1.0-4.8) k/uL Monocytes # (0-1.0) k/uL Eosinophils # (0-0.7) k/uL Basophils # (0-0.2) k/uL Sodium (137-145) mmol/L Potassium (3.5-5.1) mmol/L Chloride (98-107) mmol/L Carbon Dioxide (22-30) mmol/L Anion Gap mmol/L BUN (9-20) mg/dL Creatinine (0.66-1.25) mg/dL Est GFR (CKD-EPI)AfAm (>60 ml/min/1.73 sqM) Est GFR (CKD-EPI)NonAf (>60 ml/min/1.73 sqM) Glucose (74-99) mg/dL Plasma Lactic Acid Dk (0.7-2.0) mmol/L Calcium (8.4-10.2) mg/dL Magnesium (1.6-2.3) mg/dL Total Bilirubin (0.2-1.3) mg/dL AST (17-59) U/L ALT (4-49) U/L Alkaline Phosphatase (38-126) U/L Creatine Kinase (55-170) U/L Total Protein (6.3-8.2) g/dL Albumin (3.5-5.0) g/dL Lipase (23-300) U/L Urine Color Yellow Urine Appearance Clear (Clear) Urine pH 5.0 (5.0-8.0) Ur Specific [place] 1.036 H (1.001-1.035) Urine Protein Trace H (Negative) Urine Glucose (UA) 4+ H (Negative) Urine Ketones Negative (Negative) Urine Blood Negative (Negative) Urine Nitrite Negative (Negative) Urine Bilirubin Negative (Negative) Urine Urobilinogen <2.0 (<2.0) mg/dL Ur Leukocyte Esterase Negative (Negative) Coronavirus (PCR) Not Detected (Not Detectd) Influenza Type A RNA Not Detected (Not Detectd) Influenza Type B (PCR) Not Detected (Not Detectd) - Radiology Data Radiology results: report reviewed (Imaging as well as reports no acute processes seen at this time), image reviewed Disposition Clinical Impression: Abdominal pain, Diarrhea Disposition: ADMITTED IP TO THIS HOSP Condition: Fair Referrals: Tan Richardson MD [Primary Care Provider] - 1-2 days Decision Date: 12/23/21 Decision Time: 00:00
[2021-12-22 21:57] LABS: Appearance,Urine Clear (Clear); Bilirubin,Urine Negative (Negative); Blood,Urine Negative (Negative); Color,Urine Yellow; Glucose,Urine (UA) 4+ (Negative); Ketones,Urine Negative (Negative); Leukocyte Esterase,Urine Negative (Negative); Nitrite,Urine Negative (Negative); Protein,Urine Trace (Negative); Specific Gravity,Urine 1.036 (1.001-1.035); Urobilinogen,Urine <2.0 mg/dL (<2.0)
--- NOTE | 2021-12-22 23:23 | CT ---
EXAMINATION TYPE: CT abdomen pelvis w con DATE OF EXAM: 12/22/2021 COMPARISON: None HISTORY: abdominal pain and diarrhea CT DLP: 1937.5 mGycm Automated exposure control for dose reduction was used. CONTRAST: Performed with IV Contrast, patient injected with 80 mL of Isovue 300. Images obtained from the diaphragm to the floor the pelvis with the IV contrast. There is mild subsegmental atelectasis at the lung bases. Heart is borderline enlarged. No pericardia l effusion. There is mild coronary artery calcification. No pleural effusion. No pericardial effusion . Liver spleen stomach pancreas appear intact. The bile ducts are not dilated. Gallbladder appears norm al. There is no adrenal mass. Kidneys show satisfactory contrast opacification. There is no hydronephrosi s. Ureters are not dilated. Delayed images show normal renal excretion. There is no retroperitoneal a denopathy. Appendix is posterior and appears normal. There is 3 cm diverticulum of the second part of the duodenum. Bladder is almost empty. There is fat-containing left inguinal hernia. No free fluid in the pelvis. N o pelvic mass. There are sigmoid diverticula without diverticulitis. There is no mesenteric edema. No ascites or free air. No sign of a bowel obstruction. The lumbar vertebrae have normal alignment. No compression fracture. The bony pelvis is intact. The h ip joints are intact. No focal bone destruction. IMPRESSION: Normal appendix. No acute abnormality in the abdomen and pelvis. Duodenal diverticulum.
[2021-12-23] MEDS ORDERED: NALOXONE 0.4 MG/ML 1 ML VIAL IV PRN (00:42)
[2021-12-23] MEDS ORDERED: ALBUTEROL NEBULIZED 2.5 MG/3 ML INHALATION PRN (00:44)
[2021-12-23] MEDS ORDERED: NITROGLYCERIN SL TABS 0.4 MG TAB SUBLINGUAL PRN (00:44)
[2021-12-23] MEDS ORDERED: HYDROcodone/APAP 7.5-325MG 1 EACH TAB PO PRN (00:44)
[2021-12-23] MEDS: SODIUM CHLORIDE 0.9% 1,000 ML IV SCH ×4 (00:59→22:22)
[2021-12-23] MEDS ORDERED: KETOROLAC 15 MG/ML 1 ML VIAL IVP PRN (06:00)
[2021-12-23] MEDS: LEVOTHYROXINE 25 MCG TAB PO SCH (07:03)
[2021-12-23] MEDS: FUROSEMIDE 40 MG TAB PO SCH (07:59)
[2021-12-23] MEDS: CARBIDOPA-LEVODOPA 10-100 MG 1 EACH TAB PO SCH ×3 (08:00→22:21)
[2021-12-23] MEDS: SYMBICORT 160-4.5 MCG INHALER INHALATION SCH ×2 (08:00→20:35)
[2021-12-23] MEDS: ISOSORBIDE MONONITRATE ER 30 MG TAB.ER.24H PO SCH (08:00)
[2021-12-23] MEDS: PANTOPRAZOLE 40 MG TABLET PO SCH ×2 (08:00→22:21)
[2021-12-23] MEDS: ATORVASTATIN 20 MG TAB PO SCH (08:00)
[2021-12-23] MEDS: atenoloL 50 MG TAB PO SCH (08:01)
[2021-12-23] MEDS: NON FORMULARY DRUG (Dapagliflozin Propanediol [Farxiga] 5 MG Tablet) PO SCH (08:01)
[2021-12-23] MEDS ORDERED: DIPHENOX-ATROP 2.5-0.025 MG 1 EACH TAB PO PRN (09:00)
[2021-12-23] MEDS: ENOXAPARIN 40 MG/0.4 ML SYRINGE SQ SCH (11:08)
--- NOTE | 2021-12-23 14:01 | P.GSCN ---
History of Present Illness Consult date: 12/23/21 Reason for Consult: Diarrhea Requesting physician: Tan Richardson History of present illness: This a pleasant 61-year-old, white male who presented to the emergency department with complaints of diarrhea for the last 3 days duration. He states he's had diarrhea every 10 minutes up until last night around midnight. States no diarrhea since on this morning. He felt that he did have a fever associated with the diarrhea and he is having lower abdominal cramping. He denies any associated nausea or vomiting. Patient denies any new medication. States he was started on antibiotics one month ago for lower extremity ulcers. He denies any previous history of peptic ulcer disease, no prior colonoscopy or EGD. He had a CT of the abdomen and pelvis that showed a normal appendix. No acute abnormality in the abdomen and pelvis. Duodenal diverticulum. He has had 3-4 more bowel movements this afternoon. C. diff stool study negative. Stool cultures and C. diff PCR pending. His been afebrile. No leukocytosis. Labs: WBC 8.0 hemoglobin 15.6 hematocrit 48 platelet count 215,000 sodium 137 potassium 4.1 BUN 21 creatinine 1.39 glucose 107 total bilirubin 0.5 AST 29 ALT 14 alkaline phosphatase 83 lipase 179 C. diff negative, Grover virus PCR not detected, influenza A and B not detected Review of Systems REVIEW OF SYSTEMS: CARDIOPULMONARY: No chest pain or shortness of breath. Gastrointestinal: Lower abdominal cramping. No nausea or vomiting. No hematemesis, coffee-ground emesis. Diarrhea 3 days. No rectal bleeding, or melena. GENITOURINARY: No dysuria or hematuria. MUSCULOSKELETAL: Reports normal range of motion., Joint pain. SKIN: No rashes. No jaundice. ENDOCRINE: No chills, fevers. No excessive weight gain or loss. No polydipsia or polyuria. PSYCHIATRIC: Unremarkable. NEUROLOGY: No change in mental status. Denies dizziness, headache. ENT: Vision unremarkable. CONSTITUTIONAL: No recent weight loss. Patient said he felt like he had fever, chills. Past Medical History Past Medical History: Coronary Artery Disease (CAD), COPD, Diabetes Mellitus, GERD/Reflux, Hyperlipidemia, Hypertension, Myocardial Infarction ([place]), Osteoarthritis (OA), Thyroid Disorder, Vascular Disorder Additional Past Medical History / Comment(s): carpel tunnel rt wrist,unsteady gait,Neuropathybil feet, ULCER [place] feet-healed, DDD, KIDNEY STONES, parkinson Last Myocardial Infarction Date:: 2006 History of Any Multi-Drug Resistant Organisms: MRSA Year Discovered:: 2011 MDRO Source:: fingers Past Surgical History: Back Surgery, Heart Catheterization Additional Past Surgical History / Comment(s): Right shoulder arthroscopy- rotator cuff repair, C4 pinning/fusion, R lower abdominal cyst removed, lithotripsy/basketing, colonoscopy. 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 Past Psychological History: No Psychological Hx Reported Smoking Status: Former smoker Past Alcohol Use History: Occasional Past Drug Use History: Marijuana - Past Family History Father History Unknown: Yes Additional Family Medical History / Comment(s): Pt was raised in foster care. Mother Family Medical History: Diabetes Mellitus, Myocardial Infarction ([place]) Additional Family Medical History / Comment(s): Mother of a [place] at the age of 42 yrs. Medications and Allergies Home Medications Medication Instructions Recorded Confirmed Type Albuterol Sulfate [Proair Hfa] 2 puff INHALATION RT-QID PRN 11/18/16 12/22/21 History atenoloL [Tenormin] 100 mg PO DAILY 11/18/16 12/22/21 History Falcon-3 Fatty Acids [Falcon-3] 2,000 mg PO DAILY 03/02/17 12/22/21 History Atorvastatin [Lipitor] 20 mg PO DAILY 03/29/17 12/22/21 History Omeprazole 40 mg PO BID 03/29/17 12/22/21 History Cider Vinegar [Apple Cider Vinegar] 900 mg PO DAILY 08/12/18 12/22/21 History Cinnamon Bark [Cinnamon] 1,000 mg PO DAILY 08/12/18 12/22/21 History Garlic 1 tab PO DAILY 08/12/18 12/22/21 History Aspirin 325 mg PO DAILY #14 tab 12/14/18 12/22/21 Rx Budesonide-Formot 160-4.5 Mcg 2 puff INHALATION RT-BID 08/17/19 12/22/21 History [Symbicort 160-4.5 Mcg Inhaler] Hydrocodone/Acetaminophen [[place] 1 tab PO BID PRN 08/17/19 12/22/21 History 7.5-325] Triamcinolone 0.1% Cream [Kenalog 1 applicatio TOPICAL DAILY PRN 08/17/19 12/22/21 History 0.1% Cream] Carbidopa-Levodopa 10-100 mg 1 tab PO TID 11/21/20 12/22/21 History [Sinemet 10-100 mg] Dapagliflozin Propanediol [Farxiga] 5 mg PO DAILY 11/21/20 12/22/21 History Dulaglutide [Trulicity] 1.5 mg SQ MO 11/21/20 12/22/21 History Furosemide [Lasix] 40 mg PO DAILY 11/21/20 12/22/21 History Levothyroxine Sodium [Synthroid] 25 mcg PO DAILY 11/21/20 12/22/21 History Naloxone HCl [Narcan] 1 spray NASAL ONCE PRN 11/21/20 12/22/21 History Nitroglycerin Sl Tabs [Nitrostat] 0.4 mg PO Q5M PRN 11/21/20 12/22/21 History Potassium Chloride ER [K-Dur 10] 10 meq PO DAILY 11/21/20 12/22/21 History Pregabalin [Lyrica] 100 mg PO TID PRN 11/21/20 12/22/21 History Albuterol Nebulized [Ventolin 2.5 mg INHALATION RT-QID PRN 12/22/21 12/22/21 History Nebulized] Diphenoxylate HCl/Atropine 1 tab PO DAILY PRN 12/22/21 12/22/21 History [Lomotil 2.5-0.025 mg Tablet] Isosorbide Mononitrate ER [Imdur] 30 mg PO DAILY 12/22/21 12/22/21 History Meloxicam [Mobic] 15 mg PO DAILY 12/22/21 12/22/21 History Mupirocin 2% Oint [Bactroban 2% 1 applic TOPICAL DAILY 12/22/21 12/22/21 History Oint] Allergies Allergy/AdvReac Type Severity Reaction Status Date / Time No Known Allergies Allergy Verified 12/22/21 21:35 Surgical - Exam Vital Signs Temp Pulse Resp BP Pulse Ox 98.6 F 88 22 105/71 96 12/22/21 19:12 12/22/21 19:12 12/22/21 19:12 12/22/21 19:12 12/22/21 19:12 General appearance: The patient is alert, oriented, appears in no acute distress. Obese. HET: Head is normocephalic and atraumatic. Conjunctiva pink. Sclera anicteric. Neck: Supple without lymphadenopathy. Trachea midline. Heart: S1 S2. Regular rate and rhythm. Lungs: Clear to auscultation. Abdomen: Soft, mild lower abdominal tenderness, nondistended with bowel sounds. No guarding or rigidity. Skin: No rashes. No jaundice. Extremities: Normal skin color and turgor. No pedal edema. Neurological: No focal deficits. Alert and oriented x3. Results - Labs 12/22/21 20:56 12/22/21 20:56 Abnormal Lab Results - Last 24 Hours (Table) 12/22/21 12/22/21 12/22/21 Range/Units 20:56 20:56 21:54 Lymphocytes # 0.8 L (1.0-4.8) k/uL BUN 21 H (9-20) mg/dL Creatinine 1.39 H (0.66-1.25) mg/dL Glucose 107 H (74-99) mg/dL Ur Specific [place] 1.036 H (1.001-1.035) Urine Protein Trace H (Negative) Urine Glucose (UA) 4+ H (Negative) Diabetes panel 12/22/21 Range/Units 20:56 Sodium 137 (137-145) mmol/L Potassium 4.1 (3.5-5.1) mmol/L Chloride 103 (98-107) mmol/L Carbon Dioxide 22 (22-30) mmol/L BUN 21 H (9-20) mg/dL Creatinine 1.39 H (0.66-1.25) mg/dL Glucose 107 H (74-99) mg/dL Calcium 9.7 (8.4-10.2) mg/dL AST 29 (17-59) U/L ALT 14 (4-49) U/L Alkaline Phosphatase 83 (38-126) U/L Total Protein 6.7 (6.3-8.2) g/dL Albumin 4.1 (3.5-5.0) g/dL Calcium panel 07/18/22 Range/Units 20:56 Calcium 9.7 (8.4-10.2) mg/dL Albumin 4.1 (3.5-5.0) g/dL Pituitary panel 12/22/21 Range/Units 20:56 Sodium 137 (137-145) mmol/L Potassium 4.1 (3.5-5.1) mmol/L Chloride 103 (98-107) mmol/L Carbon Dioxide 22 (22-30) mmol/L BUN 21 H (9-20) mg/dL Creatinine 1.39 H (0.66-1.25) mg/dL Glucose 107 H (74-99) mg/dL Calcium 9.7 (8.4-10.2) mg/dL Adrenal panel 12/22/21 Range/Units 20:56 Sodium 137 (137-145) mmol/L Potassium 4.1 (3.5-5.1) mmol/L Chloride 103 (98-107) mmol/L Carbon Dioxide 22 (22-30) mmol/L BUN 21 H (9-20) mg/dL Creatinine 1.39 H (0.66-1.25) mg/dL Glucose 107 H (74-99) mg/dL Calcium 9.7 (8.4-10.2) mg/dL Total Bilirubin 0.5 (0.2-1.3) mg/dL AST 29 (17-59) U/L ALT 14 (4-49) U/L Alkaline Phosphatase 83 (38-126) U/L Total Protein 6.7 (6.3-8.2) g/dL Albumin 4.1 (3.5-5.0) g/dL - Imaging Comments: He had a CT of the abdomen and pelvis that showed a normal appendix. No acute abnormality in the abdomen and pelvis. Duodenal diverticulum. CT scan - abdomen: report reviewed (CT of the abdomen and pelvis that showed a normal appendix. No acute abnormality in the abdomen and pelvis. Duodenal diverticulum.) Assessment and Plan (1) Diarrhea Narrative/Plan: 61-year-old male who presented to the emergency department with complaints of diarrhea for the last 3 days duration. States that it started in Wednesday, and states he felt as if he's going every 10 minutes. He denies any blood in his stool. He denies any associated nausea or vomiting. He denies any recent travel or new medications. He has no prior history of EGD or colonoscopy. He denies any sick contacts. He does state that he was recently prescribed an antibiotic by his PCP for diabetic ulcers approximately one month ago. He denies any other new medications. Patient been afebrile. C. difficile toxin is negative. Stool cultures are pending, stool lactoferrin ordered and pending. Likely we are dealing with mild enteritis. Current Visit: Yes Status: Acute Code(s): R19.7 - DIARRHEA, UNSPECIFIED SNOMED Code(s): 48232750 (2) Abdominal pain Current Visit: Yes Status: Acute Code(s): R10.9 - UNSPECIFIED ABDOMINAL PAIN SNOMED Code(s): 32448760 Plan: 1. Continue symptomatic and supportive care 2. Stool lactoferrin and stool cultures ordered 3. Await stool studies, then we'll consider adding antidiarrheal 4. Diet as tolerated 5. No plans at this time of colonoscopy 6. Further recommendations forthcoming based on clinical course Thank you for this consultation, we'll continue to follow. Dr. Ekaterina Akers I agree with the dictator's note, documented as a scribe by Melva Delgado.
--- NOTE | 2021-12-23 19:39 | P.HPIM ---
History of Present Illness H&P Date: 12/23/21 Bob Queen, is a 61-year-old male who presented to [facility] emergency room with a chief complaint of abdominal pain nausea vomiting and diarrhea He was evaluated in the emergency room vital examination on presentation revealed a temperature of 98.6 pulse 88 respiration 22 blood pressure 105/71 pulse ox 96% on room air Laboratory data revealed a white blood count of 8.0 hemoglobin 15.6 platelet count 215 BUN 21 creatinine 1.39 Testing in the emergency room revealed computed tomography scan of the abdomen and pelvis was done in the emergency room and did not reveal any acute abnormality. Patient was admitted to medical floor for further evaluation and treatment. Past Medical History Past Medical History: Coronary Artery Disease (CAD), COPD, Diabetes Mellitus, GERD/Reflux, Hyperlipidemia, Hypertension, Myocardial Infarction ([place]), Osteoarthritis (OA), Thyroid Disorder, Vascular Disorder Additional Past Medical History / Comment(s): carpel tunnel rt wrist,unsteady gait,Neuropathybil feet, ULCER [place] feet-healed, DDD, KIDNEY STONES, parkinson Last Myocardial Infarction Date:: 2006 History of Any Multi-Drug Resistant Organisms: MRSA Date of last positivie culture/infection: 2011 MDRO Source:: fingers Past Surgical History: Back Surgery, Heart Catheterization Additional Past Surgical History / Comment(s): Right shoulder arthroscopy- rotator cuff repair, C4 pinning/fusion, R lower abdominal cyst removed, lithotripsy/basketing, colonoscopy. 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 Past Psychological History: No Psychological Hx Reported Smoking Status: Former smoker Past Alcohol Use History: Occasional Past Drug Use History: Marijuana - Past Family History Father History Unknown: Yes Additional Family Medical History / Comment(s): Pt was raised in foster care. Mother Family Medical History: Diabetes Mellitus, Myocardial Infarction ([place]) Additional Family Medical History / Comment(s): Mother of a [place] at the age of 42 yrs. Medications and Allergies Home Medications Medication Instructions Recorded Confirmed Type Albuterol Sulfate [Proair Hfa] 2 puff INHALATION RT-QID PRN 11/18/16 12/22/21 History atenoloL [Tenormin] 100 mg PO DAILY 11/18/16 12/22/21 History [place]-3 Fatty Acids [[place]awa-3] 2,000 mg PO DAILY 03/02/17 12/22/21 History Atorvastatin [Lipitor] 20 mg PO DAILY 03/29/17 12/22/21 History Omeprazole 40 mg PO BID 03/29/17 12/22/21 History Cider Vinegar [Apple Cider Vinegar] 900 mg PO DAILY 08/12/18 12/22/21 History Cinnamon Bark [Cinnamon] 1,000 mg PO DAILY 08/12/18 12/22/21 History Garlic 1 tab PO DAILY 08/12/18 12/22/21 History Aspirin 325 mg PO DAILY #14 tab 12/14/18 12/22/21 Rx Budesonide-Formot 160-4.5 Mcg 2 puff INHALATION RT-BID 08/17/19 12/22/21 History [Symbicort 160-4.5 Mcg Inhaler] Hydrocodone/Acetaminophen [[place] 1 tab PO BID PRN 08/17/19 12/22/21 History 7.5-325] Triamcinolone 0.1% Cream [Kenalog 1 applicatio TOPICAL DAILY PRN 08/17/19 12/22/21 History 0.1% Cream] Carbidopa-Levodopa 10-100 mg 1 tab PO TID 11/21/20 12/22/21 History [Sinemet 10-100 mg] Dapagliflozin Propanediol [Farxiga] 5 mg PO DAILY 11/21/20 12/22/21 History Dulaglutide [Trulicity] 1.5 mg SQ MO 11/21/20 12/22/21 History Furosemide [Lasix] 40 mg PO DAILY 11/21/20 12/22/21 History Levothyroxine Sodium [Synthroid] 25 mcg PO DAILY 11/21/20 12/22/21 History Naloxone HCl [Narcan] 1 spray NASAL ONCE PRN 11/21/20 12/22/21 History Nitroglycerin Sl Tabs [Nitrostat] 0.4 mg PO Q5M PRN 11/21/20 12/22/21 History Potassium Chloride ER [K-Dur 10] 10 meq PO DAILY 11/21/20 12/22/21 History Pregabalin [Lyrica] 100 mg PO TID PRN 11/21/20 12/22/21 History Albuterol Nebulized [Ventolin 2.5 mg INHALATION RT-QID PRN 12/22/21 12/22/21 History Nebulized] Diphenoxylate HCl/Atropine 1 tab PO DAILY PRN 12/22/21 12/22/21 History [Lomotil 2.5-0.025 mg Tablet] Isosorbide Mononitrate ER [Imdur] 30 mg PO DAILY 12/22/21 12/22/21 History Meloxicam [Mobic] 15 mg PO DAILY 12/22/21 12/22/21 History Mupirocin 2% Oint [Bactroban 2% 1 applic TOPICAL DAILY 12/22/21 12/22/21 History Oint] Allergies Allergy/AdvReac Type Severity Reaction Status Date / Time No Known Allergies Allergy Verified 12/22/21 21:35 Physical Exam Vitals: Vital Signs Temp Pulse Resp BP Pulse Ox 12/23/21 09:26 18 12/23/21 07:57 98.1 F 71 18 101/71 96 12/23/21 06:00 67 103/71 97 12/22/21 23:30 98.1 F 76 18 116/83 98 12/22/21 21:30 78 20 110/86 97 12/22/21 20:30 98.1 F 80 16 108/78 97 12/22/21 19:12 98.6 F 88 22 105/71 96 Intake and Output 12/22/21 12/23/21 12/23/21 22:59 06:59 14:59 Other: Weight 112.491 kg In general patient is alert and oriented x 3 in no distress HEENT head normocephalic and atraumatic Neck is supple no JVD no goiter no lymphadenopathy no carotid bruit Chest examination is clear to auscultation no crackles no wheezing Cardiac exam reveals regular heart sounds S1 and S2 no gallops no murmurs Abdomen is soft nontender no organomegaly with normal bowel sounds Extremity exam reveals no edema no cyanosis or clubbing Neurological examination reveals no gross focal deficits Results CBC & Chem 7: 12/22/21 20:56 12/22/21 20:56 Labs: Abnormal Lab Results - Last 24 Hours (Table) 12/22/21 12/22/21 12/22/21 Range/Units 20:56 20:56 21:54 Lymphocytes # 0.8 L (1.0-4.8) k/uL BUN 21 H (9-20) mg/dL Creatinine 1.39 H (0.66-1.25) mg/dL Glucose 107 H (74-99) mg/dL Ur Specific [place] 1.036 H (1.001-1.035) Urine Protein Trace H (Negative) Urine Glucose (UA) 4+ H (Negative) Assessment and Plan Plan: Gastroenteritis with nausea or vomiting abdominal pain and diarrhea Dehydration with acute kidney injury Underlying history of hypothyroidism Underlying history of hypertension Underlying history of hyperlipidemia Underlying history of Parkinson disease Underlying history of [id number] diabetes mellitus Underlying history of gastroesophageal reflux disease Underlying history of osteoarthritis Underlying history of asthma At this time patient is admitted to medical floor He was started on IV fluid for hydration Stool studies were ordered including stools culture and C. diff Gastroenterology consultation requested For DVT prophylaxis subcu Ifrah Will follow closely
[2021-12-24 03:55] VITALS: RESP 18
[2021-12-24] MEDS: LEVOTHYROXINE 25 MCG TAB PO SCH (06:26)
[2021-12-24] MEDS: SYMBICORT 160-4.5 MCG INHALER INHALATION SCH (08:24)
[2021-12-24] MEDS: ISOSORBIDE MONONITRATE ER 30 MG TAB.ER.24H PO SCH (09:09)
[2021-12-24] MEDS: ATORVASTATIN 20 MG TAB PO SCH (09:09)
[2021-12-24] MEDS: CARBIDOPA-LEVODOPA 10-100 MG 1 EACH TAB PO SCH ×2 (09:09→16:26)
[2021-12-24] MEDS: atenoloL 50 MG TAB PO SCH (09:09)
[2021-12-24] MEDS: PANTOPRAZOLE 40 MG TABLET PO SCH (09:09)
[2021-12-24] MEDS: FUROSEMIDE 40 MG TAB PO SCH (09:09)
[2021-12-24] MEDS: ENOXAPARIN 40 MG/0.4 ML SYRINGE SQ SCH (09:10)
[2021-12-24] MEDS: NON FORMULARY DRUG (Dapagliflozin Propanediol [Farxiga] 5 MG Tablet) PO SCH (09:10)
[2021-12-24 09:37] LABS: Basophils # (A) 0.03 X 10*3/uL (0.00-0.10); Basophils % (A) 0.4 %; Eosinophils # (A) 0.29 X 10*3/uL (0.04-0.35); Eosinophils % (A) 3.8 %; HCT 44.5 % (39.6-50.0); HGB 13.9 g/dL (13.0-17.0); Immature Grans, Automated 0.3 %; Lymphocytes # (A) 1.47 X 10*3/uL (0.90-5.00); Lymphocytes % (A) 19.4 %; MCH 26.8 pg (27.0-32.0); MCHC 31.2 g/dL (32.0-37.0); MCV 85.9 fL (80.0-97.0); Mean Platelet Volume 9.4 fL (9.5-12.2); Monocytes # (A) 0.81 X 10*3/uL (0.20-1.00); Monocytes % (A) 10.7 %; NRBC Per 100 WBC 0 /100 WBCS (0.0-0.0); Neutrophils # (A) 4.94 X 10*3/uL (1.80-7.70); Neutrophils % (A) 65.4 %; Platelet Count 202 X 10*3/uL (140-440); RBC 5.18 X 10*6/uL (4.40-5.60); RDW 15.2 % (11.5-14.5); WBC 7.56 X 10*3/uL (4.50-10.00)
[2021-12-24 09:50] LABS: African American GFR (CKD) 74.7 (60.0-200.0); Albumin 3.7 g/dL (3.8-4.9); Albumin/Globulin Ratio 1.68 (1.60-3.17); BUN/Creat Ratio 9.42 Ratio (12.00-20.00); Blood Urea Nitrogen 11.3 mg/dL (9.0-27.0); Calcium 8.6 mg/dL (8.7-10.3); Globulin 2.2 g/dL (1.6-3.3); Non-African American GFR(CKD) 64.4 (60.0-200.0); Potassium 4.5 mmol/L (3.5-5.5); Total Bilirubin 0.3 mg/dL (0.30-1.20); Total Protein 5.9 g/dL (6.2-8.2)
[2021-12-24 13:47] VITALS: BP 99/62; PULSE 73; TEMP 98.2
--- NOTE | 2021-12-24 15:15 | P.PN ---
Subjective Progress Note Date: 12/24/21 Principal diagnosis: Diarrhea This a pleasant 61-year-old, white male who presented to the emergency department with complaints of diarrhea for the last 3 days duration. He states he's had diarrhea every 10 minutes up until last night around midnight. States no diarrhea since on this morning. He felt that he did have a fever associated with the diarrhea and he is having lower abdominal cramping. He denies any associated nausea or vomiting. Patient denies any new medication. States he was started on antibiotics one month ago for lower extremity ulcers. He denies any previous history of peptic ulcer disease, no prior colonoscopy or EGD. He had a CT of the abdomen and pelvis that showed a normal appendix. No acute abnormality in the abdomen and pelvis. Duodenal diverticulum. He has had 3-4 more bowel movements this afternoon. C. diff stool study negative. Stool cultures and C. diff PCR pending. His been afebrile. No leukocytosis. 12/24/2021: Patient was seen and examined today as a follow-up for complaints of diarrhea. He states he's not had any further diarrhea since yesterday evening. He denies any abdominal pain, nausea or vomiting. Both C differential EIA And PCR negative. Stool cultures are pending. Patient is afebrile. Tolerating his diet. Objective - Vital Signs Vital signs: Vital Signs Temp 97.5 F L 12/24/21 02:49 Pulse 67 12/24/21 02:49 Resp 18 12/24/21 02:49 BP 109/68 12/24/21 02:49 Pulse Ox 98 12/24/21 02:49 FiO2 Intake & Output 12/23/21 12/24/21 12/24/21 18:59 06:59 18:59 Intake Total 600 Balance 600 Weight 112.491 kg Intake: Oral 600 Other: # Voids 1 1 # Bowel Movements 2 0 - Exam General appearance: The patient is alert, oriented, appears in no acute distress. HET: Head is normocephalic and atraumatic. Conjunctiva pink. Sclera anicteric. Neck: Supple without lymphadenopathy. Abdomen: Soft, nontender, nondistended with bowel sounds. No guarding or rigidity. Extremities: Normal skin color and turgor. No pedal edema Skin: No rashes, no jaundice Neurological: No focal deficits. Alert and oriented x3. - Labs CBC & Chem 7: 12/24/21 03:54 12/24/21 03:54 Labs: Microbiology - Last 24 Hours (Table) 12/23/21 09:06 Stool Culture - Preliminary Stool Assessment and Plan (1) Diarrhea Narrative/Plan: 61-year-old male who presented to the emergency department with complaints of diarrhea for the last 3 days duration. States that it started in Wednesday, and states he felt as if he's going every 10 minutes. He denies any blood in his stool. He denies any associated nausea or vomiting. He denies any recent travel or new medications. He has no prior history of EGD or colonoscopy. He denies any sick contacts. He does state that he was recently prescribed an antibiotic by his PCP for diabetic ulcers approximately one month ago. He denies any other new medications. Patient been afebrile. C. difficile toxin is negative. Stool cultures are pending, stool lactoferrin ordered and pending. Likely we are dealing with mild enteritis. Symptoms have resolved. Current Visit: Yes Status: Acute Code(s): R19.7 - DIARRHEA, UNSPECIFIED SNOMED Code(s): 38348663 (2) Abdominal pain Current Visit: Yes Status: Acute Code(s): R10.9 - UNSPECIFIED ABDOMINAL PAIN SNOMED Code(s): 26574545 Plan: 1. Continue symptomatic and supportive care 2. Stool lactoferrin and stool cultures ordered 3. Continue Lomotil as needed 4. Diet as tolerated 5. No plans at this time of colonoscopy. Patient to follow-up with Dr. Akers to schedule outpatient colonoscopy 6. Patient is cleared for discharge from gastroenterology Thank you for this consultation. Dr. Ekaterina Akers I agree with the dictator's note, documented as a scribe by Melva OWENS .
[2021-12-24] MEDS: SODIUM CHLORIDE 0.9% 1,000 ML IV SCH ×3 (15:28→16:26)
== END 2021-12-24 17:30 | disposition home or self-care (01) ==
LOC: EC 18:07 → 6NMEDSUR 12-23 00:42
PROVIDERS: ADMIT Internal Medicine; ATTEND Internal Medicine
DX: K52.9 Noninfective gastroenteritis and colitis, unspecified (principal); N17.9 Acute kidney failure, unspecified; E86.0 Dehydration; K57.10 Diverticulosis of small intestine without perforation or abscess without bleeding; K57.30 Diverticulosis of large intestine without perforation or abscess without bleeding; E03.9 Hypothyroidism, unspecified; I10 Essential (primary) hypertension; I25.10 Atherosclerotic heart disease of native coronary artery without angina pectoris; J44.9 Chronic obstructive pulmonary disease, unspecified; E78.5 Hyperlipidemia, unspecified; I25.2 Old myocardial infarction; K21.9 Gastro-esophageal reflux disease without esophagitis; M19.90 Unspecified osteoarthritis, unspecified site; E11.42 Type 2 diabetes mellitus with diabetic polyneuropathy; R26.81 Unsteadiness on feet; G20 Parkinson's disease; Z20.822 Contact with and (suspected) exposure to COVID-19; G56.01 Carpal tunnel syndrome, right upper limb; Z79.51 Long term (current) use of inhaled steroids; Z79.84 Long term (current) use of oral hypoglycemic drugs; Z79.82 Long term (current) use of aspirin; Z79.890 Hormone replacement therapy; Z79.1 Long term (current) use of non-steroidal anti-inflammatories (NSAID); Z79.899 Other long term (current) drug therapy; Z87.442 Personal history of urinary calculi; Z86.14 Personal history of Methicillin resistant Staphylococcus aureus infection; Z87.891 Personal history of nicotine dependence; Z86.31 Personal history of diabetic foot ulcer; Z98.1 Arthrodesis status; Z89.422 Acquired absence of other left toe(s); Z89.421 Acquired absence of other right toe(s); Z98.890 Other specified postprocedural states; Z83.3 Family history of diabetes mellitus; Z82.49 Family history of ischemic heart disease and other diseases of the circulatory system
CPT/HCPCS: 96372 ×2; 96361 ×3; 96360; 99285; 36415; 94640 ×3; 80053 ×2; 82550; 83605; 83690; 83735; 85025 ×2; 81003; 87324; 87493; 87045; 83630; 87046; 87502; 87635; 71046; 74018; 74177; G0378 ×2; J1650 ×2; Q9967

== ENCOUNTER → 2022-03-04 | Outpatient (CLI) | payer MEDICARE, OTHER ==
[2022-03-04 16:19] LABS: ALT 12 U/L (10-49); AST 20 U/L (14-35); African American GFR (CKD) 58.4 (60.0-200.0); Albumin 4.1 g/dL (3.8-4.9); Albumin/Globulin Ratio 1.75 (1.60-3.17); Alkaline Phosphatase 99 U/L (41-126); BUN/Creat Ratio 12.45 Ratio (12.00-20.00); Blood Urea Nitrogen 18.3 mg/dL (9.0-27.0); Calcium 9.2 mg/dL (8.7-10.3); Carbon Dioxide 23.1 mmol/L (20.0-27.5); Chloride 105 mmol/L (96-109); Chol/HDL Ratio 5.15 Ratio; Globulin 2.3 g/dL (1.6-3.3); Glucose 134 mg/dL (70-110); LDL Cholesterol,Calculated 119.5 mg/dL (0.0-131.0); Non-African American GFR(CKD) 50.4 (60.0-200.0); Potassium 4.7 mmol/L (3.5-5.5); Sodium 138 mmol/L (135-145); Total Protein 6.4 g/dL (6.2-8.2)
== END | disposition home or self-care (01) ==
LOC: LABWHC1 09:21
PROVIDERS: ATTEND Internal Medicine Endocrinology, Diabetes & Metabolism
DX: Z01.83 Encounter for blood typing (principal); E11.65 Type 2 diabetes mellitus with hyperglycemia
CPT/HCPCS: 36415; 80053; 80061; 82043; 82570; 84443; 86850; 86900; 86901

== ENCOUNTER → 2022-05-28 | Outpatient (CLI) | payer MEDICARE, OTHER | END | disposition home or self-care (01) | LOC: LABWHC1 15:46 | PROVIDERS: ATTEND Nurse Practitioner Family | DX: Z53.9 Procedure and treatment not carried out, unspecified reason (principal) ==

== ENCOUNTER 2022-06-23 07:28 | Day surgery (SDC) | payer MEDICARE, OTHER ==
[2022-05-28 17:09] LABS: Calcium 8.9 mg/dL (8.4-10.2); Potassium 4.3 mmol/L (3.5-5.1)
[2022-06-19 14:38] VITALS: BMI 33.7
[~2022-06-23 07:28] MED LIST changes: +LACTATED RINGERS 1,000 ML IV SCH; +LIDOCAINE 1% (10MG/ML) FOR IV START INTRADERMA PRN; -REGADENOSON 0.4 MG/5 ML SYRINGE IV PRN
[2022-06-23 07:55] VITALS: TEMP 97.5
[2022-06-23 08:11] LABS: Glucose,Whole Blood 109 mg/dL (70-110)
[2022-06-23] MEDS ORDERED: PHENYLEPHRINE-0.9% NACL SYG 1,000 MCG/10 ML SYRINGE ONE (08:37)
[2022-06-23] MEDS ORDERED: PROPOFOL 10 MG/ML 20 ML VIAL IV ONE (08:37)
[2022-06-23] MEDS ORDERED: LIDOCAINE 2% INJ 20 MG/ML (2 ML VIAL) ONE (08:37)
--- NOTE | 2022-06-23 08:56 | P.PCN ---
Date of Procedure: 06/23/22 Procedure(s) Performed: BRIEF HISTORY: Patient is a 62-year-old pleasant white female scheduled for an elective colonoscopy as a part of screening for colon cancer. PROCEDURE PERFORMED: Colonoscopy with snare polypectomy. PREOPERATIVE DIAGNOSIS: Screening for colon cancer. IV sedation per Anesthesia. PROCEDURE: After informed consent was obtained, the patient, was brought into the endoscopy unit. IV sedation was administered by Anesthesia under continuous monitoring. Digital rectal examination was normal. Initially the Olympus CF-160 flexible video colonoscope was then inserted in the rectum, gradually advanced into the cecum without any difficulty. Careful examination was performed as the scope was gradually being withdrawn. Ileocecal valve and the appendiceal orifice were visualized and appeared normal. Prep was excellent. Mucosa of the cecum, ascending colon, transverse colon, was normal. In the descending colon there was a 6 mm polyp that was removed by snare polypectomy. Rest of the descending colon, sigmoid colon, and rectum appeared normal. In the rectum there was a 2 mm polyp that was removed by snare polypectomy. Retroflexion was performed in the rectum and no lesions were seen. The patient tolerated the procedure well. IMPRESSION: 6 mm descending colon polyp status post polypectomy 2 mm rectal polyp status post polypectomy RECOMMENDATIONS: Findings of this examination were discussed with the patient as well as his family. She was advised to follow with the biopsy results. If the biopsy result adenoma he can have a repeat colonoscopy in 5 years..
[2022-06-23 09:16] VITALS: RESP 18
[2022-06-23 09:31] VITALS: BP 97/60; PULSE 78
== END 2022-06-23 09:55 | disposition home or self-care (01) ==
LOC: ORWHC2ENDO 07:28
PROVIDERS: ATTEND Internal Medicine Gastroenterology
DX: Z12.11 Encounter for screening for malignant neoplasm of colon (principal); D12.4 Benign neoplasm of descending colon; K62.1 Rectal polyp; I10 Essential (primary) hypertension; I25.10 Atherosclerotic heart disease of native coronary artery without angina pectoris; J44.9 Chronic obstructive pulmonary disease, unspecified; E11.9 Type 2 diabetes mellitus without complications; E07.9 Disorder of thyroid, unspecified; G20 Parkinson's disease; Z79.899 Other long term (current) drug therapy
CPT/HCPCS: 80048; 45385; J2370; J2704; J2001; 88305

== ENCOUNTER → 2023-09-23 | Outpatient (CLI) | payer MEDICARE, OTHER ==
[~2023-09-23] MED LIST changes: -LACTATED RINGERS 1,000 ML IV SCH; -LIDOCAINE 1% (10MG/ML) FOR IV START INTRADERMA PRN; +REGADENOSON 0.4 MG/5 ML SYRINGE IV PRN
--- NOTE | 2023-09-23 12:06 | CA ---
Lexiscan Nuclear Stress Test Report Name: Bob Queen Exam Date: 09/23/2023 10:35 Exam Location: [facility] Ht (in): 64 Wt (lb): 220 BSA: 2.04 Ordering Phys: Keri Westbrook MD Referring Phys: Keri Westbrook MD Technologist: ADAM Age: 63 Gender: M : 1960 Procedure CPT: Indications: R06.02 SOB R07.89 CHEST PAIN ICD-10 Codes: Patient History: Chest pain, short of breath, palpitations, hypertension and history of ascad Medications: Meds past 24 hrs: Pretest Chest Pain: STRESS TEST Lexiscan Protocol Exercise Duration (min:sec): 01:[address] Depressions (mm): Angina Score: Chacon Score: Resting HR (bpm): 81 Peak HR (bpm): 94 Resting BP (mmHg): 105 / 65 Peak BP (mmHg): 86 / 57 MPHR: 156 Target HR: 133 % MPHR: 60 METS: 1.0 Total Dose: Peak Dose: Atropine: Double Product: 8084 BP Response: Stress Termination: Infusion complete Stress Symptoms: No chest pain or symptoms Stress Summary: ECG ANALYSIS Resting ECG: Normal sinus rhythm normal axis normal intervals Stress ECG: Patient was given intravenous Lexiscan as a protocol did not have chest pain or diagnostic ST segment depression CONCLUSIONS Negative stress test by EKG criteria Cardiolite portion of the stress test will be reported separately Dr. Yosef Akers MD (Electronically Signed) Final Date: 23 September 2023 12:05
--- NOTE | 2023-09-24 16:02 | NM ---
EXAMINATION TYPE: NM stress lexiscan cardiolite DATE OF EXAM: 09/23/2023 COMPARISON: NONE HISTORY: Short of breath chest pain TECHNIQUE: After the intravenous administration of 10.8 mCi Tc 99m Sestamibi - Cardiolite resting SP ECT images acquired 73 minutes post injection. At peak stress 25.4 mCi Tc 99m Sestamibi - Stress images obtained 51 minutes post injection The patient was stressed with 0.4mg Lexiscan. FINDINGS: Small fixed defect may be along the inferior lateral wall. Roadmap is not exhibit this defect very we ll. No reversible perfusion defects are evident. Ejection fraction is 64% is normal. Gated wall motion appears normal. IMPRESSION: 1. No stress-induced ischemic changes. 2. Minimal small prior infarct along the inferior lateral wall in the mid portion towards the cardiac apex is not excluded. 3. Normal ejection fraction
== END | disposition home or self-care (01) ==
LOC: RADNMMAIN 08:41
PROVIDERS: ATTEND Internal Medicine Interventional Cardiology
DX: R06.02 Shortness of breath (principal); R07.89 Other chest pain
CPT/HCPCS: 93017; 78452; A9500; J2785